=== PATIENT | male | born 1965 | race Caucasian/White ===

== ENCOUNTER → 2023-04-29 | Outpatient (CLI) | payer MEDICAID, SELFPAY ==
--- NOTE | 2023-04-29 13:16 | MRI_ITS ---
STUDY: MRI LEFT SHOULDER REASON FOR EXAM: Male, 57 years old. Pain, look at rotator cuff tendons. TECHNIQUE: Standardized fat and water weighted pulse sequences were obtained in all 3 orthogonal planes. COMPARISON: None. FINDINGS: There is supraspinatus, infraspinatus, and subscapularis tendinosis without a full-thickness tear. Normal teres minor tendon. Normal supraspinatus muscle. Normal infraspinatus muscle. Normal subscapularis muscle. Normal teres minor muscle. There is moderate to severe glenohumeral arthrosis with joint space narrowing, marginal osteophyte formation, high-grade chondromalacia, and subchondral marrow edema in the glenoid. There is overall degeneration of the glenoid labrum. There is a moderate to large glenohumeral joint effusion. Intact humeral head and visualized proximal humerus. Intact biceps labral complex. There is tendinosis and medial subluxation of the long biceps tendon at the proximal bicipital groove. There is mild hypertrophic acromioclavicular arthrosis. There is a Type II morphology (curved), with a neutral orientation. There is trace subacromial-subdeltoid bursal fluid. Normal visualized coracohumeral and coracoacromial ligaments. Normal quadrilateral space. Normal axillary space. Normal deltoid muscle. Normal trapezius muscle. MRI/Upper Ext Joint Only(Routine) IMPRESSION: Supraspinatus, infraspinatus, and subscapularis tendinosis without a full-thickness rotator cuff tear. Mild hypertrophic acromioclavicular arthrosis. Minimal subacromial-subdeltoid bursitis. Moderate to severe glenohumeral arthrosis with overall degeneration of the glenoid labrum. Moderate to large glenohumeral joint effusion. Tendinosis and medial subluxation of the long biceps tendon at the proximal bicipital groove. Electronically Signed: Stanley Loredo MD at 15:30 EDT ,
== END | disposition home or self-care (01) ==
LOC: MRI 13:05
PROVIDERS: PCP Family Medicine; Referring Provider Orthopaedic Surgery Sports Medicine; Visit Provider Orthopaedic Surgery Sports Medicine
DX: M25.512 Pain in left shoulder (principal); M19.012 Primary osteoarthritis, left shoulder
CPT/HCPCS: 73221

== ENCOUNTER → 2023-06-02 | Outpatient (CLI) | payer MEDICAID, SELFPAY ==
--- NOTE | 2023-06-02 13:16 | CT_ITS ---
EXAM: CT LEFT UPPER EXTREMITY WITHOUT INTRAVENOUS CONTRAST CLINICAL INDICATION: surgery planning for total shoulder replacement -- for [facility] planning TECHNIQUE: Helically acquired images were obtained of the left upper extremity without intravenous contrast. 2-D reformats were performed by the technologist. CTDIvol = ( 23.03 ) mGy, DLP = ( 618.59 ) mGycm This CT exam was performed using one or more of the following dose reduction techniques: automated exposure control, adjustment of the mA and/or kV according to patient size, and/or use of iterative reconstruction technique. COMPARISON: April 29, 2023 FINDINGS: BONES/JOINTS: Severe osteoarthritic changes involving the glenohumeral joint with prominent osteophytes projecting inferiorly. [id number] acromioclavicular joint osteoarthrosis. No acute or healing fracture or malalignment. No unusual lytic or sclerotic lesions of bone. SOFT TISSUES: Unremarkable. No soft tissue swelling or gas. No radiopaque foreign body. No soft tissue masses or fluid collections. LUNGS AND PLEURAL SPACES: The visualized left lung is clear. CT/Extremity Upper without Contra IMPRESSION: Severe left glenohumeral joint osteoarthrosis. Electronically Signed: Gagandeep Manley MD at 23:58 EST ,
== END | disposition home or self-care (01) ==
LOC: CT 13:15
PROVIDERS: Referring Provider Orthopaedic Surgery Sports Medicine; Visit Provider Orthopaedic Surgery Sports Medicine
DX: M19.012 Primary osteoarthritis, left shoulder (principal)
CPT/HCPCS: 73200

== ENCOUNTER 2023-07-27 05:14 | Day surgery (SDC) | payer MEDICAID, SELFPAY ==
[2023-07-21 11:33] LABS: Absolute Lymphocyte Count 2.29 X10^3/uL (0.83-4.51); Absolute Neutrophil Count 4.1 X10^3/uL (2.0-7.7); Basophil# 0.06 X10^3/uL; Basophil% 0.8 % (0-1); Eosinophil# 0.21 X10^3/uL; Eosinophils% 2.9 % (0-5); Hematocrit 41.1 % (40-54); Hemoglobin 13.8 g/dL (13.0-16.5); Lymphocyte # 2.29 X10^3/ul (0.83-4.51); Lymphocyte % 31.7 % (19-41); Mean Corp Hgb Conc 33.6 g/dL (32-36); Mean Corpuscular Hgb 29.2 pg (27.0-32.0); Mean Corpuscular Volume 87.1 fL (80-94); Mean Platelet Vol. 9.7 fl (6.2-12.0); Monocyte# 0.53 X10^3/uL; Monocyte% 7.3 % (0-10); NRBC Flagged by Analyzer 0 % (0-5); Neutrophil # 4.11 X10^3/uL (2.7-7.7); Platelet Count 277 K/mm3 (150-450); RBC Distribution Width CV 12.5 % (11.6-14.6); RBC Distribution Width SD 39.8 fl (35.1-43.9); Red Blood Count 4.72 M/mm3 (4.6-6.2); White Blood Count 7.2 K/mm3 (4.4-11.0)
[2023-07-21 11:57] LABS: Anion Gap 3 (5-15); BUN 9 mg/dL (7-18); BUN/Creat Ratio 9.4 RATIO (10-20); Calcium,Total 9.3 mg/dL (8.5-10.1); Chloride 106 mmol/L (98-107); Creatinine, Serum 0.96 mg/dL (0.70-1.30); EST Glomerular Filtration Rate 86 mL/min (>60); Est Glom Filt Rate - Afr Amer 104 mL/min (>60); Glucose 72 mg/dL (74-106); Magnesium 2.2 mg/dL (1.6-2.6); Potassium 3.8 mmol/L (3.5-5.1); Sodium Level 137 mmol/L (136-145)
[2023-07-21 12:26] LABS: Partial Thromboplast Time 31.2 Seconds (24.1-36.2); Prothrombin Time (Protime)PT. 13.4 SECONDS (11.7-14.9)
[2023-07-21 13:51] LABS: Hemoglobin A1c 5.3 % (3.8-5.6)
[2023-07-22 08:11] LABS: Fructosamine 232 umol/L (0-285)
[2023-07-27] VITALS (10 sets, daily range): BP systolic 111–144; BP diastolic 67–94; PULSE 59–68; RESP 14–17; TEMP 36–36.8; O2SAT 97–100; BMI 23.1
--- OUTSIDE RECORDS SUMMARY | 2023-07-27 05:24 | XMS RPT_ITS | CCD ---
Author Name Unknown Address [address] [place] [address] Organization [facility] Care Team Providers Care Resistor Coater Name Role Phone Taty Neal Unavailable [phone] ViauVerónica Unavailable Unavailable Viau, Verónica Bedolla Unavailable Unavailable Viau, Verónica Bedolla Unavailable Unavailable Viadoris, Verónica Bedolla Unavailable Unavailable Taty Neal Primary Care Provider Taty Neal Primary Care Provider Taty Neal MD Primary Care Provider Taty Neal MD Primary Care Provider NINI ESPINOZA Attending Unavailable TATY NEAL Primary Care Unavailable MICHAEL MOFFETT Attending Unavailab MICHAEL Srivastava Admitting Unavailab TATY Estrada Primary Care Unavailable FRANCOIS STEARNS Attending UnavailJEREMIAS Reed Admitting Unavailable TATY NEAL Primary Care Unavailable [facility] Consulting SEYMOUR Barnes Consulting Unavailable VISHAL NAQVI Consulting Unavailable Seymour Luke MD Unavailable TATY NEAL Primary Care Unavailable VERÓNICA TORRES Admitting Unavail able VERÓNICA TORRES Attending Unavail able KEVIN CAPUTO Consulting Unavailable KEVIN CAPUTO Attending Unavailable TATY NEAL Primary Care Unavailable KEVIN CAPUTO Admitting Unavailable TATY NEAL Primary Care Unavailable RAMON SANDERS Admitting Unavailable VERÓNICA TORRES Attending Unavail able KEVIN CAPUTO Consulting Unavailable Taty Neal MD Primary Care Provider [phone] Seymour Luke MD Unavailable [phone] SUREKHA LARIOS Attending Unavailable TATY NEAL Primary Care Unavailable SUREKHA LARIOS Attending Unavailable TATY NEAL Primary Care Unavailable VERÓNICA TONG Attending Unavailable TATY NEAL Primary Care Unavailable KEVIN CAPUTO Attending Unavailable TATY NEAL Primary Care Unavailable TATY NEAL Primary Care Unavailable SUREKHA LARIOS Attending Unavailable SUREKHA LARIOS Admitting Unavailable SUREKHA LARIOS Referring Unavailable TATY NEAL Primary Care Unavailable SANJIV POLLACK Attending Unavail able TATY NEAL Primary Care Unavailable MICHAEL MOFFETT Attending Unavailab le TATY NEAL Primary Care Unavailable SUREKHA LARIOS Attending Unavailable TATY NEAL Primary Care Unavailable Medications Current Medications Medication Drug Class(es) Dates Sig (Normalized) Sig (Original) acetaminophen 325 mg / HYDROcodone bitartrate 5 mg oral tablet (13 sources) Opioid Agonist Start: 12-14-2021 End: 12-21-2021 HYDROcodone-acetam inophen (NORCO) 5-325 mg per tablet Indications: Traumatic amputation of left middle finger Take 1 (one) tablet by mouth every 6 (six) hours as needed for pain (Days supply per fill: 7) . 28 tablet 0 12/14/2021 12/21/2021 Active Completed/Discontinued Medications Medication Drug Class(es) Dates Sig (Normalized) Sig (Original) acetaminophen 325 mg oral tablet (1 source) Start: 03-10-2022 End: 03-19-2022 take 1 tablet by mouth every four hours as needed for pain and headache 650 mg, Oral, Every 4 hours PRN, mild pain, fever 100.4 F or greater, headaches, Starting on Tue03/10/22 at 1353 acetaminophen 325 mg / oxyCODONE hydrochloride 5 mg oral tablet (1 source) Opioid Agonist Start: 03-17-2022 End: 03-18-2022 take 1 tablet by mouth every six hours as needed oxyCODONE-acetami nophen (PERCOCET) 5-325 mg per tablet 1 tablet aluminum hydroxide 40 mg/ml / magnesium hydroxide 40 mg/ml / simethicone 4 mg/ml oral suspension (1 source) Start: 03-10-2022 End: 03-19-2022 take 30 mL by mouth every four hours as needed 30 mL, Oral, Every 4 hours PRN, indigestion, Starting on Tue03/10/22 at 1353 amLODIPine 5 mg oral tablet (1 source) Dihydropyridine Calcium Channel Jassi Start: 01-14-2022 End: 03-19-2022 take 1 tablet by mouth once daily amLODIPine (NORVASC) 5 MG tablet Take 1 (one) tablet (5 mg total) by mouth daily . 0 01/14/2022 03/19/2022 Discontinued (Stop Taking at Discharge) baclofen 10 mg oral tablet (1 source) gamma-Aminobutyric Acid-ergic Agonist Start: 03-10-2022 End: 03-12-2022 baclofen (LIORESAL) tablet 20 mg 24 hr buPROPion hydrochloride 150 mg extended release oral tablet (19 sources) Aminoketone Start: 03-15-2022 End: 03-18-2022 buPROPion (WELLBUTRIN XL) 24 hr tablet 300 mg Problems Active Problems Problem Classification Problem Date Documented Date Episodic/Chronic Alcohol-related disorders (17 sources) Alcohol dependence with withdrawal, unspecified; Translations: [Alcohol withdrawal syndrome] Onset: 2 Chronic Deficiency and other anemia (2 sources) Iron deficiency anemia secondary to blood loss (chronic); Translations: [Iron deficiency anemia secondary to blood loss (chronic)] Onset: 2 Chronic Deficiency and other anemia (6 sources) Iron deficiency anemia due to blood loss; Translations: [Iron deficiency anemia secondary to blood loss (chronic)] Onset: 2 03-25-2022 Chronic Gastrointestinal hemorrhage (6 sources) Peptic ulcer with hemorrhage; Translations: [Chronic or unspecified peptic ulcer, site unspecified, with hemorrhage] Onset: 2 03-20-2022 Chronic Mood disorders (9 sources) Depressive disorder; Translations: [Depression, unspecified depression type] Onset: 2 Chronic Mood disorders (2 sources) Mood disorders; Translations: [Depression, Associated Order(s): LG Jt Injection/Arthrocentesis: R subacromial bursa Post-Procedure Diagnose(s): Impingement syndrome of both shoulders LG Jt Injection/Arthrocentesis: R subacromial bursa Performed by: Surekha Larios CNP Authorized by: Surekha Larios CNP CPT 27975 - Large Joint Arthrocentesis: Consent given by: Patient Time out: Immediately prior to the procedure a time out was called Physician or proceduralist has discussed critical or nonroutine steps, procedure duration and anticipated blood loss: Yes Supporting Documentation: Indications: Pain Procedure Details: Location: Shoulder Site: R subacromial bursa Prep: patient was prepped and draped in usual sterile fashion Needle size: 22 G Approach: Posterior Medications: 1 mL dexamethasone 4 mg/mL, 1 mL triamcinolone acetonide 40 mg/mL Anesthetic used: Bupivacaine 0.5% and Lidocaine 1% Anesthetic amount (mL): 4 Patient tolerance: Patient tolerated the procedure well with no immediate complications 05/04/22 Colton Blairley 1965 Chief Complaint Patient presents with Injections B/L SHOULDER INJ HISTORY of Present Illness: Colton Ronquillo is a 56 y.o. year old male that presents today with Injections (B/L SHOULDER INJ) . Colton Ronquillo has had injections in the past. Last injection to right/left shoulder was over 8 months ago and they tolerated well. They have been treated w/ oral medications & injections. Patient states he did tear down a fence in his yard over a week ago and felt that he strained his left shoulder. He did see his family doctor and he suspected impingement. The following portions of the patient's history were reviewed and updated as appropriate: allergies, current medications, past surgical history and problem list Assessment No documentation. Referred By: No ref. provider found PAST MEDICAL HISTORY The patient's Medications, Allergies, Past Surgical History, Medical History, Family History and Social History were reviewed and can be found in their online medical record, and I have reviewed this information with Colton Ronquillo at the time of their visit. They are significant for Past Medical History: Diagnosis Date Anxiety Arthritis shoulders left wrist spine Depression Hypertension 2018 PHYSICAL EXAM Right Shoulder Exam Tenderness The patient is experiencing tenderness in the acromioclavicular joint and biceps tendon. Muscle Strength Abduction: 3/5 Internal rotation: 3/5 External rotation: 3/5 Biceps: 3/5 Tests Hewitt test: positive Impingement: positive Other Erythema: absent Left Shoulder Exam Tenderness The patient is experiencing tenderness in the acromioclavicular joint and biceps tendon. Muscle Strength Internal rotation: 3/5 External rotation: 3/5 Biceps: 3/5 Tests Hewitt test: positive Impingement: positive Other Erythema: absent Additional Notes: IMAGING Notes: none new today. Reviewed from last visit. IMPRESSION And PLAN: Cortisone injection today. Will follow up in 3 months if effective. Call if no improvement in 10 days. No diagnosis found. Surekha Larios CNP documented in this encounter [facility] 03-19-2022 Hospital Discharge instructions Tita Agustin RN - 03/19/2022 11:30 PM EDT Pt was transported per ambulance to [facility] with all paperwork in place. documented in this encounter [facility] 03-19-2022 History of Present illness Narrative Medical Transportation set up by [facility] per hospital request: Date:03/19/22 Time:2199 Destination:[address] [place] [address] Company: [employer] ([phone]) Special needs/equipment:n/a Truck Type: Ambulance Companies called: [employer] Care Management Progress Note Date: 03/19/2022 Time: 5:27 PM Patient Name: Colton Ronquillo Date of : 1965 Discharge Plan: D/C Disposition: Swing Bed Agency/Destination: [facility] Transition of Care Unit Post-Acute Patient Choice 1: [facility] Discharging Transportation Plan: Transportation Type: Ambulance Discharge Plan Status: VCM noted in RT that pt listed as being pt at [facility]. Provided corrected into to transport scheduling team. Transport not scheduled at this time. 5:47 pm: VCM noted transport time for 10 pm tonight. Notified care team and printed ambulance form to unit. 6:15 pm: VCM received secure chat from [facility] , stating that [facility] generally does not like transports this late in the evening. VCM spoke with [facility] staff, who stated that pt can come at 10 pm or he may lose his bed. VCM updated transport team. Care Management Progress Note Date: 03/19/2022 Time: 10:47 AM Patient Name: Colton Ronquillo Date of : 1965 Discharge Plan:[facility]/Accepted D/C Disposition: Swing Bed Agency/Destination: [facility] Transition of Care Unit Post-Acute Patient Choice 1: [facility] Discharging Transportation Plan: Ambulance Discharge Plan Status: Awaiting discharge order. Accepted to [facility]. 1620 Informed MARISELA Lara that no time established for transport.notified the extenders with care mgmt to print to [employer] computer with d/c ambulance form when time is established NEPHROLOGY PROGRESS [facility] Patient Name: Colton Ronquillo Admit Date: [id number] MR #: [id number] : 1965 ASSESSMENT/PLAN: Acute hypotonic hyponatremia: Unknown baseline. 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 Per patient, has been drinking Twelve 28 ounce water pitchers a day while currently hospitalized, which calculates to over 10 liters/day. -Sodium on admission 136, sodium dropped to 125 during this admission. Recent sodium of 130. -Recently started on Cymbalta on 03/15. -Strict I's and O's. -Trend sodium daily. -Fluid restriction of 1800 ml/day. -Continue to hold IV fluids. -Wellbutrin discontinued today 03/18 as this and a combination of Cymbalta can contribute to hyponatremia exacerbated by polydipsia. -Patients sodium level improved from 125 to 130 with initiation of fluid restriction. Again stressed to the patient the need for appropriate fluid intake. 2. Acute normocytic anemia: Per primary team and GI. Concerning for GI bleed. Hemoglobin on admission 14.6 with current hemoglobin at 7.9. -EGD today with multiple nonbleeding ulcers, biopsy negative for H. Pylori. -GI recommending 3-months of Protonix 40 mg p.o. twice daily Carafate 1 g p.o. 4 times daily. Avoidance of NSAIDs. 3. Chronic alcohol abuse: Per behavioral medicine and primary team. On CIWA protocol. -Plans for patient to be discharged to [facility] withdrawal unit. 4. Anxiety/depression: - Per behavioral medicine and primary team. Concerns for suicidal ideation on admission. -On Cymbalta -Wellbutrin discontinued today. 5. Orthostatic hypotension -Given that patient is reporting drinking greater than 10 L of fluids per day during this hospitalization doubt this is due to volume depletion. Patient also reported dark stool today and guaiac is positive. Patient will need further evaluation of orthostasis per your expertise. Nephrology to sign off. Please do not hesitate to reconsult if needed. Does not need outpatient follow-up with us. Again stressed to the patient the need appropriate fluid intake. He has not needed more than 2 L of fluid a day. He will be seeking treatment for alcohol abuse after discharge. Subjective: Events overnight: none Patient resting quietly in bed. Hospitalist at bedside as well. Review of Systems: ROS otherwise reviewed and negative Physical Examination: Vitals: Vitals: 03/18/22 0440 03/18/22 0713 03/18/22 1104 03/18/22 1123 BP: 120/72 120/74 108/77 BP Location: Right arm Right arm Patient Position: Lying Lying Pulse: 85 93 (!) 100 Resp: (!) 19 (!) 29 18 16 Temp: 97.4 F (36.3 C) 98 F (36.7 C) 98.1 F (36.7 C) TempSrc: Oral Oral Oral SpO2: 93% 94% 98% Weight: Height: Intake/Output last 3 shifts: Intake/Output Summary (Last 24 hours) at 03/18/2022 1440 Last data filed at 03/18/2022 0815 Gross per 24 hour Intake 515 ml Output 1675 ml Net -1160 ml I/O last 3 completed shifts: In: 1025 [P.O.:1020; I.V.:5] Out: 4875 [Urine:4875] General: No acute distress HEENT: Anicteric Neck: Supple CV: Regular rate, no murmurs or rubs. No lower extremity edema Lungs: CTA B Abd: Soft, nontender, bowel sounds present Extr: good LE perfusion, no cyanosis Neuro: No myoclonus, alert and oriented x 3 Skin : No new rashes Dialysis access: : Results/Medications Reviewed 03/18/22 2:40 PM: Laboratory, Microbiology, Pathology, Radiology, Cardiology, Medications and Transcriptions reviewed Scheduled Meds: DULoxetine 30 mg Oral BID folic acid 1 mg Oral Daily lidocaine 1 patch Transdermal Daily melatonin 5 mg Oral Nightly multivitamin 1 tablet Oral Daily pantoprazole 40 mg Intravenous BID polyethylene glycol 17 g Oral Daily senna 1 tablet Oral BID sodium chloride (PF) 5 mL Intravenous Q8H SIERRA topiramate 25 mg Oral Daily topiramate 50 mg Oral Nightly Continuous Infusions: sodium chloride 0.9 % sodium chloride 0.9 % Results from last 7 days Lab Units 03/18/22 0846 03/17/22 0800 03/17/22 0311 03/15/22 0805 03/15/22 0322 WBC K/mcL 6.44 -- 7.27 -- 6.08 HGB g/dL 8.0* 7.8* 7.6* < > 7.9* HCT % 23.0* 22.2* 21.7* < > 22.8* PLT K/mcL 404* -- 234 -- 181 < > = values in this interval not displayed. Results from last 7 days Lab Units 03/18/22 0846 03/18/22 0731 03/17/22 1048 03/17/22 0311 03/16/22 0946 03/15/22 0322 03/13/22 0256 03/12/22 0302 SODIUM mmol/L 130* 130* 125* 125* 133* 132* 132* 133* POTASSIUM mmol/L 3.8 3.7 -- 3.8 3.7 3.7 3.7 4.0 CHLORIDE mmol/L 100 100 -- 96* 104 103 100 103 BICARB mmol/L 22 23 -- 22 20* 23 25 21 BUN mg/dL 11 11 -- 7* 9 9 23 24 CREATININE mg/dL 0.57 0.55 -- 0.56 0.67 0.79 0.76 0.62 EGFR mL/min/1.73 m2 116 117 -- 116 110 105 106 113 GLUCOSE mg/dL 103* 101* -- 120* 110* 102* 86 97 CALCIUM mg/dL -- 8.3* -- 8.2* 8.4 8.3* 8.4 8.4 MAGNESIUM mg/dL -- -- -- 2.1 -- 2.2 2.2 2.3 PHOSPHORUS mg/dL -- -- -- -- -- -- -- 3.8 Urinalysis Spiritual Care Progress Note Completed by: Stefano Hernandez Person(s) Present During this Visit: Patient Time Spent in Direct Patient Care: 15 Narrative: While rounding on the unit, laborer drying department introduced self and role to the patient, Marck, as part of a routine emotional/spiritual care visit. While appreciative of visit, Marck expressed no needs at this time. Merchant Banker provided information regarding pastoral care services, availability, and how to contact. Patient's Response to Pastoral Care: Expressed Gratitude for Visit Planning for Future Visits: PRN, Pt aware to contact Merchant Banker as needed Stefano Hernandez, PhD Staff Merchant Banker Pastoral Care Department [facility] Office: [phone] 24-hour On-call 03/18/22 1415 Visit Background Visit With Patient Visit By Staff Merchant Banker Visit Progression Introduction Visit Requested By Merchant Banker Initiated Visit Source Merchant Banker Initiated Visit Type Inpatient;Rounding Visit Circumstances and Events Routine Visit Visit Length (minutes) 15 Patient's Response to Pastoral Care Expressed Gratitude for Visit Visit Planning PRN;Pt aware to contact Merchant Banker as needed Spiritual Assessment Not assessed during visit Scientologist Assessment Not assessed during this visit Family assessment provided? Unable to asess during this visit [facility]PHROLOGY [facility] Patient Name: Colton Ronquillo Admit Date: [id number] MR #: [id number] : 1965 ASSESSMENT/PLAN: Acute hypotonic hyponatremia: Unknown baseline. 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 Per patient, has been drinking Twelve 28 ounce water pitchers a day while currently hospitalized, which calculates to over 10 liters/day. -Sodium on admission 136, sodium dropped to 125 during this admission. Recent sodium of 130. -Recently started on Cymbalta on 03/15. -Strict I's and O's. -Trend sodium daily. -Fluid restriction of 1800 ml/day. -Continue to hold IV fluids. -Wellbutrin discontinued today 03/18 as this and a combination of Cymbalta can contribute to hyponatremia. -Patients sodium level improved with initiation of fluid restriction. 2. Acute normocytic anemia: Per primary team and GI. Concerning for GI bleed. Hemoglobin on admission 14.6 with current hemoglobin at 7.9. -EGD today with multiple nonbleeding ulcers, biopsy negative for H. Pylori. -GI recommending 3-months of Protonix 40 mg p.o. twice daily Carafate 1 g p.o. 4 times daily. Avoidance of NSAIDs. 3. Chronic alcohol abuse: Per behavioral medicine and primary team. On CIWA protocol. -Plans for patient to be discharged to [facility] withdrawal unit. 4. Anxiety/depression: - Per behavioral medicine and primary team. Concerns for suicidal ideation on admission. -On Cymbalta -Wellbutrin discontinued today. 5. Orthostatic hypotension -Given that patient is reporting drinking greater than 10 L of fluids per day during this hospitalization doubt this is due to volume depletion. Patient also reported dark stool today and guaiac is positive. Patient will need further evaluation of orthostasis per your expertise. Nephrology to sign off. Please do not hesitate to reconsult if needed. Subjective: Events overnight: none Patient resting quietly in bed. Hospitalist at bedside as well. Review of Systems: ROS otherwise reviewed and negative Physical Examination: Vitals: Vitals: 03/18/22 0440 03/18/22 0713 03/18/22 1104 03/18/22 1123 BP: 120/72 120/74 108/77 BP Location: Right arm Right arm Patient Position: Lying Lying Pulse: 85 93 (!) 100 Resp: (!) 19 (!) 29 18 16 Temp: 97.4 F (36.3 C) 98 F (36.7 C) 98.1 F (36.7 C) TempSrc: Oral Oral Oral SpO2: 93% 94% 98% Weight: Height: Intake/Output last 3 shifts: Intake/Output Summary (Last 24 hours) at 03/18/2022 1319 Last data filed at 03/18/2022 0815 Gross per 24 hour Intake 515 ml Output 1675 ml Net -1160 ml I/O last 3 completed shifts: In: 1025 [P.O.:1020; I.V.:5] Out: 4875 [Urine:4875] General: No acute distress HEENT: Anicteric Neck: Supple CV: Regular rate, no murmurs or rubs. No lower extremity edema Lungs: CTA B Abd: Soft, nontender, bowel sounds present Extr: good LE perfusion, no cyanosis Neuro: No myoclonus, alert and oriented x 3 Skin : No new rashes Dialysis access: : Results/Medications Reviewed 03/18/22 1:19 PM: Laboratory, Microbiology, Pathology, Radiology, Cardiology, Medications and Transcriptions reviewed Scheduled Meds: DULoxetine 30 mg Oral BID folic acid 1 mg Oral Daily lidocaine 1 patch Transdermal Daily melatonin 5 mg Oral Nightly multivitamin 1 tablet Oral Daily pantoprazole 40 mg Intravenous BID polyethylene glycol 17 g Oral Daily senna 1 tablet Oral BID sodium chloride (PF) 5 mL Intravenous Q8H SIERRA topiramate 25 mg Oral Daily topiramate 50 mg Oral Nightly Continuous Infusions: sodium chloride 0.9 % sodium chloride 0.9 % Results from last 7 days Lab Units 03/18/22 0846 03/17/22 0800 03/17/22 0311 03/15/22 0805 03/15/22 0322 WBC K/mcL 6.44 -- 7.27 -- 6.08 HGB g/dL 8.0* 7.8* 7.6* < > 7.9* HCT % 23.0* 22.2* 21.7* < > 22.8* PLT K/mcL 404* -- 234 -- 181 < > = values in this interval not displayed. Results from last 7 days Lab Units 03/18/22 0846 03/18/22 0731 03/17/22 1048 03/17/22 0311 03/16/22 0946 03/15/22 0322 03/13/22 0256 03/12/22 0302 SODIUM mmol/L 130* 130* 125* 125* 133* 132* 132* 133* POTASSIUM mmol/L 3.8 3.7 -- 3.8 3.7 3.7 3.7 4.0 CHLORIDE mmol/L 100 100 -- 96* 104 103 100 103 BICARB mmol/L 22 23 -- 22 20* 23 25 21 BUN mg/dL 11 11 -- 7* 9 9 23 24 CREATININE mg/dL 0.57 0.55 -- 0.56 0.67 0.79 0.76 0.62 EGFR mL/min/1.73 m2 116 117 -- 116 110 105 106 113 GLUCOSE mg/dL 103* 101* -- 120* 110* 102* 86 97 CALCIUM mg/dL -- 8.3* -- 8.2* 8.4 8.3* 8.4 8.4 MAGNESIUM mg/dL -- -- -- 2.1 -- 2.2 2.2 2.3 PHOSPHORUS mg/dL -- -- -- -- -- -- -- 3.8 Urinalysis [facility] [facility] PROGRESS NOTE Assessment and Plan Colton Ronquillo is a 56 y.o. male patient of Taty Neal MD with history of depression, hypertension, alcohol abuse presents to the hospital due to concern of suicidal ideation. While in the ER patient denies being actively suicidal but does state that he does not have will to live. Patient also wants help with alcohol detoxification and is being admitted to medical service with psych consulted for medicine consult. Acute blood loss normocytic anemia To rule out acute GI bleed (peptic ulcer disease or esophageal varices bleed secondary to alcohol abuse) Hemoglobin dropped from 14-7.7. Most recent hemoglobin 8.0->7.8->8.0 Noted increasing BUN 3 days ago As per report patient takes meloxicam daily due to chronic arthritis. Also alcohol use 10-12 beers per day No further bowel movements Iron study showed iron deficiency with iron sat of 5% folate levels. Normal Occult blood stool Protonix 40 mg twice daily. Status post EGD on 03/16-Multiple non bleeding antral ulcers identified.Bx negative H pylori. Recommend 3 month protonix 40mg po BID and carafate 1g po QID, Follow up with Dr. Shea in 2-3 months for repeat endoscopic evaluation then. Avoid NSAIDs. 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 Patient on Cymbalta and Wellbutrin Sodium on admission 136 there after dropping to high 130s then 125 Trend sodium every 6 hours and call if sodium less than 122 or more than 132 nephrology Fluid restriction 1800 mL/day Holding IV fluids for now Sodium from 125 up to 130 stable Discussed with nephrology since patient was started on Cymbalta will discontinue Wellbutrin Discussed with the patient fluid restriction and alcohol cessation Orthostatic hypotension Patient blood pressure drop down to the 70s upon the standing LEANA hose for now due to hyponatremia Once hyponatremia improving we will discussed with nephrology IV fluid likely intravascularly depleted due to episode of bleeding Acute alcohol abuse: Alcohol intoxication IV then p.o. multivitamins [facility] protocol Dr. Luke consulted recommended phenobarbital taper, topiramate 50 mg twice daily, baclofen, keep potassium more around 4 and magnesium above 2. Patient to be discharged to [facility] withdrawal unit. Clonidine patch. Discussed in length with patient regarding catalyst, alcohol cessation in possibility of AA if he is interested for long-term support Anxiety/depression ? Concern of suicidal, present on admission, currently resolved. Continue bupropion Patient currently denies any suicidal ideation/thoughts or attempts. Psychiatry consulted, awaiting input.. Initially one-to-one observation then discontinued. Peripheral neuropathy Continue gabapentin Right and left upper quadrant abdominal pain resolved Serum amylase and lipase unremarkable Ultrasound abdomen largely unremarkable Symptomatic treatment. Physical deconditioning PT OT and social service consulted for discharge plan. AM PAC 16-19. Left shoulder pain Shoulder x-ray ordered Family Contact Information Code Status: Full Code Quality Measures DVT Prophylaxis: SCD Abdul Catheter: none Disposition Discharge Location: [facility] Estimated Discharge Date: TBD Outpatient Testing: tb d Subjective Patient overall oriented and alert, he reports left shoulder pain after the RGD with underlying OA He denies abdominal pain. 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 Robin CP , denies Denies fever or chills or nausea or vomiting Abdominal pain subsided Review of Systems All systems reviewed pertinent positives and negatives have been mentioned in the HPI Objective BP 120/74 (BP Location: Right arm, Patient Position: Lying) Pulse 93 Temp 98 F (36.7 C) (Oral) Resp (!) 29 Ht 5' 11 Wt 77.1 kg (169 lb 15.6 oz) SpO2 94% BMI 23.71 kg/m Physical Examination General Appearance: alert; well appearing; in no acute distress HEENT: Head- normocephalic; Eyes- EOMI, sclera anicteric; Ears- hearing intact; Nose- no nasal discharge; Throat- mucous membranes moist Cardiovascular: regular rate and rhythm; normal S1, S2; no murmurs, rubs, clicks or gallops; no peripheral edema Respiratory: lungs clear to auscultation; without wheezes, rales or rhonchi; on room air Abdomen: soft, no tender , non-distended; positive bowel sounds Neurological: oriented x 3; normal speech; no focal findings or movement disorder noted Musculoskeletal: Chronic synovitis and deformities on the hands, limited range of motion in immobilized left wrist Skin: normal coloration; no obvious rashes, lesions or skin breakdown Psych: normal mood and affect Results/Medications Reviewed 03/18/2022 9:10 AM 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 Physical Therapy PHYSICAL THERAPY TREATMENT NOTE Skilled Therapy Needs After Discharge Are Skilled Therapy Services Needed After Discharge: Yes Intensity of Skilled Therapy: 5 to 7 days per week Anticipated Duration of Skilled Therapy: Duration 7 - 10 days DME Recommendation: Wheeled Walker DME Rationale: Patient's condition prevents him/her from accomplishing ADL without recommended equipment, Patient's condition creates an increased risk of safety hazard without recommended equipment Rehab Potential: Good Outcomes Measures Prior Function - Basic Mobility Raw Score: 24 Points Prior Function - Basic Mobility % Impaired: 0% AM-PAC Basic Mobility Raw Score: 16 Points AM-PAC Basic Mobility % Impaired: 47.12% Activity Tolerance Activity Tolerance: Tolerates 20 - 30 min activity with multiple rests Therapy Precautions Orthotic Devices: No Weight Bearing Status: WFL General Rehab Precautions: Fall risk (alcohol withdrawl) Balance Sitting Balance - Static: Stand by assist Sitting Balance - Dynamic: Stand by assist Loss of Balance - Sitting Dynamic: posterior, intermittent Sitting Balance Treatment: weight shifting anterior Skilled Intervention Provided: verbal cues, tactile cues, demonstration, patient education For: LE management, LE positioning, self-monitoring during activity Resulting in: improved activity tolerance, increased upright tolerance for functional tasks Standing Balance - Static: Contact guard assist Emt B - Standing Static: wheeled walker Loss of Balance- Standing Static: intermittent Skilled Intervention Provided: verbal cues, tactile cues, demonstration For: LE management, LE positioning, UE management, UE positioning, self-monitoring during activity, safe use of AD and/or equipment Resulting in: improved activity tolerance Bed Mobility Rolling: Independent, Head of bed elevated Supine to Sit: Modified independent, Head of bed elevated Sit to Supine: Modified independent, Head of bed elevated Emt B: bedrails Skilled Intervention Provided: verbal cues, tactile cues, monitoring patient response with activity For: LE management, LE positioning, safety during functional tasks, safe use of bedrails and/or equipment Resulting in: improved activity tolerance Transfers Sit to Stand: Contact guard assist Bed to Chair: Contact guard assist Stand Pivot Transfers: Contact guard assist Emt B: wheeled walker Skilled Intervention Provided: verbal cues, tactile cues, monitoring patient response with positional changes, monitoring patient response with activity For: LE management, LE positioning, fall prevention, safe use of AD and/or equipment, safety during functional tasks, self-monitoring during activity Resulting in: improved activity tolerance, improved functional independence Gait/Locomotion Gait Assistance: Contact guard assist Assistive Device: wheeled walker Distance: 35 Feet Rest Breaks: Yes Rest Break Position: seated Rest Break Duration: 2-3 mins Additional Gait Trial 2: Yes Gait Assistance Trial 2: Contact guard assist Assistive Device Trial 2: wheeled walker Distance Trial 2: 20 Rest Breaks Trial 2: Yes Rest Break Position Trial 2: seated Rest Break Duration Trial 2: 1-2 mins Pattern: step to, step through, R decreased step length, L decreased step length, over reliance on upper extremities, decreased dixie (steps per minute), narrow base of support (increased dizziness with standing and ambulation. post ambulation DUNGEON MASTER checked BP 104/66.) Weight Bearing Status: able to maintain Gait Loss(es) of Balance: multidirectional, inconsistent Environment/Terrain: open/community environment, multiple distractions Skilled Intervention Provided: verbal cues, demonstration, provided step by step instructions For: attention to task, LE management, UE management, self-monitoring during activity Resulting in: improved activity tolerance Exercise Seated Exercises: marching x20, LAQ x20, AP x20 Standing Exercises: static standing ~ 2 mins Skilled Intervention Provided: verbal cues, tactile cues, monitoring patient response with exercise For: achieving full ROM as tolerated, self-monitoring during activity Resulting in: improved functional strength/ROM, improved performance Additional Treatment Details post ambulation checked BP d/t increased dizziness 104/66. checked BP in standing 68/43, and supine 125/74. notified nursing about possible orthostatic hypotension. Home Living Obtained Home Living and PLOF info from: Patient Lives With: Alone Type of Home: House Home Layout: One level, Laundry in basement, Stairs between floors Rails on inside stairs: 1 rail Number of stairs inside home: (1 flight) Steps to enter home: Yes Rails to enter home: None Number of stairs to enter home: 3 Bathroom Shower/Tub: Tub/shower unit, Main level Bathroom Toilet: Standard, Main level Bathroom Equipment: Hand-held showerhead Bathroom Accessibility: Accessible via walker Mobility Equipment: Cane Additional Objective Details - Home Living: Pt reports he is entering [facility] [place]. 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 This note stands as the current Discharge Summary upon patient discharge from the hospital or completion of Physical Therapy Plan of Care. [facility] [place] PROGRESS NOTE Assessment and Plan Colton Ronquillo is a 56 y.o. male patient of Taty Neal MD with history of depression, hypertension, alcohol abuse presents to the hospital due to concern of suicidal ideation. While in the ER patient denies being actively suicidal but does state that he does not have will to live. Patient also wants help with alcohol detoxification and is being admitted to medical service with psych consulted for medicine consult. Acute blood loss normocytic anemia To rule out acute GI bleed (peptic ulcer disease or esophageal varices bleed secondary to alcohol abuse) Hemoglobin dropped from 14-7.7. Most recent hemoglobin 8.0->7.8 Noted increasing BUN 3 days ago As per report patient takes meloxicam daily due to chronic arthritis. Also alcohol use 10-12 beers per day No further bowel movements Iron study showed iron deficiency with iron sat of 5% folate levels. Normal Occult blood stool Protonix 40 mg twice daily. Status post EGD on 03/16-Multiple non bleeding antral ulcers identified.Bx negative H pylori. Recommend 3 month protonix 40mg po BID and carafate 1g po QID, Follow up with Dr. Shea in 2-3 months for repeat endoscopic evaluation then. Avoid NSAIDs. 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 multivitamins [facility] protocol Dr. Luke consulted recommended phenobarbital taper, topiramate 50 mg twice daily, baclofen, keep potassium more around 4 and magnesium above 2. Patient to be discharged to [facility] withdrawal unit. Clonidine patch. Discussed in length with patient regarding [facility], alcohol cessation in possibility of AA if he is interested for long-term support Anxiety/depression ? Concern of suicidal, present on admission, currently resolved. Continue bupropion Patient currently denies any suicidal ideation/thoughts or attempts. Psychiatry consulted, awaiting input.. Initially one-to-one observation then discontinued. Peripheral neuropathy Continue gabapentin Right and left upper quadrant abdominal pain resolved Serum amylase and lipase unremarkable Ultrasound abdomen largely unremarkable Symptomatic treatment. Physical deconditioning PT OT and social service consulted for discharge plan. AM PAC 16-19. Family Contact Information Code Status: Full Code Quality Measures DVT Prophylaxis: SCD Abdul Catheter: none Disposition Discharge Location: [facility] Estimated Discharge Date: TBD Outpatient Testing: tb d Subjective Patient overall oriented and alert, he reports left wrist pain due to chronic osteoarthritis that has been ongoing for a while. He denies abdominal pain. He did have an episode of bowel movement dark, black Denies fever or chills or nausea or vomiting Abdominal pain subsided Review of Systems All systems reviewed pertinent positives and negatives have been mentioned in the HPI Objective BP 125/80 Pulse 93 Temp 98.7 F (37.1 C) Resp 12 Ht 5' 11 Wt 77.1 kg (169 lb 15.6 oz) SpO2 96% BMI 23.71 kg/m Physical Examination General Appearance: alert; well appearing; in no acute distress HEENT: Head- normocephalic; Eyes- EOMI, sclera anicteric; Ears- hearing intact; Nose- no nasal discharge; Throat- mucous membranes moist Cardiovascular: regular rate and rhythm; normal S1, S2; no murmurs, rubs, clicks or gallops; no peripheral edema Respiratory: lungs clear to auscultation; without wheezes, rales or rhonchi; on room air Abdomen: soft, no tender , non-distended; positive bowel sounds Neurological: oriented x 3; normal speech; no focal findings or movement disorder noted Musculoskeletal: Chronic synovitis and deformities on the hands, limited range of motion in immobilized left wrist Skin: normal coloration; no obvious rashes, lesions or skin breakdown Psych: normal mood and affect Results/Medications Reviewed 03/17/2022 10:27 AM 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 Nutrition Care Initial Assessment Reason for visit: Dietitian Screen - LOS Nutrition Diagnosis: No current nutrition dx. Nutrition Intervention/Prescription: Continue PO diet Diet: Regular Oral nutrition supplement: n/a Tube Feeding: n/a Nutrition Goals: PO intake > 75% most meals Start Date:03/17/2022 Expected End Date:03/23/2022 Nutrition Education: No needs at this time Assessment: Pertinent clinical information: pt presented with suicidal ideation and request for assistance with alcohol withdrawal, drop in hemoglobin noted with black-colored stool, concern for acute GI bleed per chart review. Pt is now s/p EGD with biopsy on 03/16. Past Medical History: Diagnosis Date Anxiety Depression Hypertension 2017 Height: 5' 11 Current weight: 77.1 kg (169 lb 15.6 oz) BMI Body mass index is 23.71 kg/m . Weight hx: fluctuation noted over the last few months.Anticipate weights without change below were stated weights. Wt Readings from Last 10 Encounters: 03/13/22 77.1 kg (169 lb 15.6 oz) 12/16/21 73 kg (160 lb 15 oz) 12/14/21 81.6 kg (180 lb) 12/20/18 81.6 kg (180 lb) 11/24/18 81.6 kg (180 lb) 08/23/17 81.6 kg (180 lb) 08/15/17 81.6 kg (180 lb) 07/20/17 82.1 kg (180 lb 14.4 oz) Current diet order: Regular Current EN order: n/a Current supplements: n/a Recent intake: no intake recorded at present. Per RDN review of [facility], pt has been ordering meals regularly with assistance. Current intake Likely meets estimated needs. Patient/family comments: RDN met with pt in room on this date. Pt reports appetite is improving, did not have nutrition questions or concerns during visit on this date. RDN to remain available. Difficulty Chewing/Swallowing: No Skin Integrity: Intact GI Function: LBM 9/8, constipation noted Edema: non-pitting edema to LUE per RN flowsheet documentation Physical Appearance: no overt physical s/s of malnutrition noted today. Pt is thin. Labs: Recent Labs 03/17/22 0311 NA 125* K 3.8 BICARB 22 CL 96* GLUCOSE 120* BUN 7* CREATININE 0.56 MG 2.1 Scheduled Meds: buPROPion 300 mg Oral Q24H SIRERA DULoxetine 30 mg Oral BID folic acid 1 mg Oral Daily lidocaine 1 patch Transdermal Daily melatonin 5 mg Oral Nightly multivitamin 1 tablet Oral Daily pantoprazole 40 mg Intravenous BID polyethylene glycol 17 g Oral Daily senna 1 tablet Oral BID sodium chloride (PF) 5 mL Intravenous Q8H SIERRA topiramate 25 mg Oral Daily topiramate 50 mg Oral Nightly Continuous Infusions: sodium chloride 0.9 % sodium chloride 0.9 % Estimated Energy Needs Total Energy Estimated Needs: 6738-9674 kcal/d Method for Estimating Needs: 25-30 kcal/kg current wt Total Protein Estimated Needs: 80 g/d Method for Estimating Needs: 1 g/kg current wt Genesis Terrazas RDN, LD, [facility] Pt c/o left wrist pain, stated that it hurts really bad . Pt experiencing limited movement and swelling to left hand. Nurse suggested an ice pack to hand, pt refusing. DARION Jones notified, see MAR for new orders. Care Management Progress Note Date: 03/16/2022 Time: 11:49 AM Patient Name: Colton Ronquillo Date of : 1965 Discharge Plan: Post-Acute Patient Choice 1: [facility] Discharging Transportation Plan: Undetermined Discharge Plan Status: Patient reviewed with Dr. Christianson. EGD procedure to be completed. Current referral out with [facility]. Patient to address therapy needs first and then plan to discharge to [facility] W/D unit. [facility] [place] PROGRESS NOTE Assessment and Plan Colton Ronquillo is a 56 y.o. male patient of Taty Neal MD with history of depression, hypertension, alcohol abuse presents to the hospital due to concern of suicidal ideation. While in the ER patient denies being actively suicidal but does state that he does not have will to live. Patient also wants help with alcohol detoxification and is being admitted to medical service with psych consulted for medicine consult. Acute normocytic anemia To rule out acute GI bleed (peptic ulcer disease or esophageal varices bleed secondary to alcohol abuse) Hemoglobin dropped from 14-7.7. Most recent hemoglobin 8.0 Noted increasing BUN 3 days ago As per report patient takes meloxicam daily due to chronic arthritis. Also alcohol use 10-12 beers per day No further bowel movements Iron study showed iron deficiency with iron sat of 5% folate levels. Normal Occult blood stool Protonix 40 mg twice daily. Consult GI plan for EGD today Acute alcohol abuse: Alcohol intoxication IV then p.o. multivitamins [facility] protocol Dr. Luke consulted recommended phenobarbital taper, topiramate 50 mg twice daily, baclofen, keep potassium more around 4 and magnesium above 2. Patient to be discharged to [facility] withdrawal unit. Clonidine patch. Anxiety/depression ? Concern of suicidal, present on admission, currently resolved. Continue bupropion Patient currently denies any suicidal ideation/thoughts or attempts. Psychiatry consulted, awaiting input.. Initially one-to-one observation then discontinued. Peripheral neuropathy Continue gabapentin Right and left upper quadrant abdominal pain resolved Serum amylase and lipase unremarkable Ultrasound abdomen largely unremarkable Symptomatic treatment. Hyponatremia resolved Most likely hypovolemic IV fluid hydration Back to normal Physical deconditioning PT OT and social service consulted for discharge plan. AM PAC 16-19. Family Contact Information Code Status: Full Code Quality Measures DVT Prophylaxis: SCD Abdul Catheter: none Disposition Discharge Location: [facility] Estimated Discharge Date: TBD Outpatient Testing: tb d Subjective Patient overall oriented and alert, he reports chronic pain from arthritic changes on his hand and left wrist Denies noticing any blood or black stool, currently constipation Denies fever or chills or nausea or vomiting Abdominal pain subsided Review of Systems All systems reviewed pertinent positives and negatives have been mentioned in the HPI Objective BP 107/68 (BP Location: Left arm, Patient Position: Lying) Pulse 87 Temp 98.2 F (36.8 C) (Oral) Resp (!) 19 Ht 5' 11 Wt 77.1 kg (169 lb 15.6 oz) SpO2 97% BMI 23.71 kg/m Physical Examination General Appearance: alert; well appearing; in no acute distress HEENT: Head- normocephalic; Eyes- EOMI, sclera anicteric; Ears- hearing intact; Nose- no nasal discharge; Throat- mucous membranes moist Cardiovascular: regular rate and rhythm; normal S1, S2; no murmurs, rubs, clicks or gallops; no peripheral edema Respiratory: lungs clear to auscultation; without wheezes, rales or rhonchi; on room air Abdomen: soft, no tender , non-distended; positive bowel sounds Neurological: oriented x 3; normal speech; no focal findings or movement disorder noted Musculoskeletal: Chronic synovitis and deformities on the hands, limited range of motion in immobilized left wrist Skin: normal coloration; no obvious rashes, lesions or skin breakdown Psych: normal mood and affect Results/Medications Reviewed 03/16/2022 10:09 AM 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 Occupational Therapy OCCUPATIONAL THERAPY TREATMENT NOTE Skilled Therapy Needs After Discharge Are Skilled Therapy Services Needed After Discharge: Yes Intensity of Skilled Therapy: 2-3 days per week Anticipated Duration of Skilled Therapy: Duration 7 - 10 days DME Recommendation: Tub seat DME Rationale: Patient's condition prevents him/her from accomplishing ADL without recommended equipment, Patient's condition creates an increased risk of safety hazard without recommended equipment Rehab Potential: Good Outcomes Measures Prior Function Daily Activity Raw Score: 24 Prior Function Daily Activity % Impaired: 0% AM-PAC Daily Activity Raw Score: 21 AM-PAC Daily Activity % Impaired: 32.79% Activity Tolerance Activity Tolerance: Tolerates 20 - 30 min activity with multiple rests Therapy Precautions Orthotic Devices: Yes Upper Extremity: Left (Wrist Brace (pt wears at his own discretion d/t old injury)) Weight Bearing Status: WFL General Rehab Precautions: Fall risk Cognition Overall Cognitive Status: Within Functional Limits Arousal/Alertness: Appropriate responses to stimuli Orientation Level: Oriented X4 Social Interaction: WFL Resulting In: (Conversed. Followed direction well. Mild apprehension in standing and with mobility in room.) ADL Grooming: Modified independent (Washed face and brushed teeth independently while standing at sink, SBA. Stood 2 minutes at a time, but would then need to sit d/t bilateral knee pain or mild dizziness. (3 trials)) Grooming - Skilled Intervention Provided: environmental setup/modification, monitored patient's safety and tolerance Grooming - For: fall prevention Grooming - Resulting In: improved overall self care, improved participation in ADL task Toileting: Supervision (and GB. Managed pants with CGA. Managed toilet hygiene independently.) Toileting - Skilled Intervention Provided: environmental setup/modification, monitored patient's safety and tolerance Toileting - For: fall prevention Toileting - Resulting In: improved safety, improved overall self care, improved participation in ADL task, increased upright tolerance for functional tasks Functional Mobility: Contact guard assist (Walked with CGA and holding onto wall or walker for support from bed to sink to toilet to sink and chair.) Functional Mobility - Skilled Intervention Provided: monitoring patient response with activity, monitoring patient response with positional changes, environmental setup/modification Functional Mobility - For: fall prevention, increased participation in mobility task Functional Mobility - Resulting In: increased upright tolerance for functional task(s), improved safety IADL Bed Mobility Supine to Sit: Modified independent Sit to Supine: Modified independent Functional Transfers Sit to Stand: Contact guard assist Bed to Chair Transfers: Contact guard assist Toilet Transfers: Stand by assist (with GB for support) Exercise Seated Exercises: Bilateral elbow flex/ext 2 sets of 10, shoulder flexion to 80 degrees 10 reps, hand clasps 10 reps. Having left wrist pain with LUE motion, even with wrist support on entire time. Standing Exercises: Stood momentarily for BUE exercises, but then had to sit reporting mild dizziness, so did ther ex in sitting. Balance Treatment Sitting Balance - Static: Independent Standing Balance - Static: Contact guard assist Emt B - Standing Static: (ww, sink, GB) Interventions Additional Treatment Details Home Living Obtained Home Living and PLOF info from: Patient Lives With: Alone Type of Home: House Home Layout: One level, Laundry in basement, Stairs between floors Rails on inside stairs: 1 rail Number of stairs inside home: (1 flight) Steps to enter home: Yes Rails to enter home: None Number of stairs to enter home: 3 Bathroom Shower/Tub: Tub/shower unit, Main level Bathroom Toilet: Standard, Main level Bathroom Equipment: Hand-held showerhead Bathroom Accessibility: Accessible via walker Mobility Equipment: Cane Additional Objective Details - Home Living: Pt reports he is entering [facility] [place]. 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 This note stands as the current Discharge Summary upon patient discharge from the hospital or completion of Occupational Therapy Plan of Care. Care Management Progress Note Date: 03/15/2022 Time: 1:54 PM Patient Name: Colton Ronquillo Date of : 1965 Discharge Plan: Post-Acute Patient Choice 1: [facility] Discharging Transportation Plan: Discharge Plan Status: Patient may be ready for discharge tomorrow. PT is still recommending treatment 5-7 times a week. I spoke with [facility] withdrawal unit. Patient would need to be able to independently care for himself there. Referral sent to TCU. Patient made aware. Communicated with Jodee MUÑOZ, who reports patient/family request referral(s) to [facility]. Referral(s) sent, awaiting follow-up. [facility] [place] PROGRESS NOTE Assessment and Plan Colton Ronquillo is a 56 y.o. male patient of Taty Neal MD with history of depression, hypertension, alcohol abuse presents to the hospital due to concern of suicidal ideation. While in the ER patient denies being actively suicidal but does state that he does not have will to live. Patient also wants help with alcohol detoxification and is being admitted to medical service with psych consulted for medicine consult. Acute alcohol abuse: Alcohol intoxication IV then p.o. multivitamins [facility] protocol Dr. Luke consulted recommended phenobarbital taper, topiramate 50 mg twice daily, baclofen, keep potassium more around 4 and magnesium above 2. Patient to be discharged to [facility] withdrawal unit. Clonidine patch. Anxiety/depression ? Concern of suicidal, present on admission, currently resolved. Continue bupropion Patient currently denies any suicidal ideation/thoughts or attempts. Psychiatry consulted, awaiting input.. Initially one-to-one observation then discontinued. Peripheral neuropathy Continue gabapentin Right and left upper quadrant abdominal pain Serum amylase and lipase unremarkable Ultrasound abdomen largely unremarkable Symptomatic treatment. Hyponatremia Most likely hypovolemic IV fluid hydration Back to normal Acute normocytic anemia To rule out acute GI bleed (peptic ulcer disease or esophageal varices bleed secondary to alcohol abuse) Hemoglobin dropped from 14-7.7 Iron study showed iron deficiency with iron sat of 5% folate levels. Normal Occult blood stool Protonix 40 mg twice daily. Consult GI Physical deconditioning PT OT and social service consulted for discharge plan. AM PAC 16-19. Family Contact Information Code Status: Full Code Quality Measures DVT Prophylaxis: SCD Abdul Catheter: none Disposition Discharge Location: [facility] Estimated Discharge Date: TBD Outpatient Testing: tb d Subjective Feels better of mild dizziness and lightheadedness Denies noticing any blood or black stool Denies fever or chills or nausea or vomiting Abdominal pain subsided Review of Systems All systems reviewed pertinent positives and negatives have been mentioned in the HPI Objective BP 100/62 (BP Location: Left arm, Patient Position: Lying) Pulse (!) 105 Temp 97.5 F (36.4 C) (Temporal) Resp 16 Ht 5' 11 Wt 77.1 kg (169 lb 15.6 oz) SpO2 97% BMI 23.71 kg/m Physical Examination General Appearance: alert; well appearing; in no acute distress HEENT: Head- normocephalic; Eyes- EOMI, sclera anicteric; Ears- hearing intact; Nose- no nasal discharge; Throat- mucous membranes moist Cardiovascular: regular rate and rhythm; normal S1, S2; no murmurs, rubs, clicks or gallops; no peripheral edema Respiratory: lungs clear to auscultation; without wheezes, rales or rhonchi; on room air Abdomen: soft, no tender , non-distended; positive bowel sounds Neurological: oriented x 3; normal speech; no focal findings or movement disorder noted Musculoskeletal: no significant deformity or tenderness to palpation Skin: normal coloration; no obvious rashes, lesions or skin breakdown Psych: normal mood and affect Results/Medications Reviewed 03/15/2022 12:48 PM 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 Physical Therapy PHYSICAL THERAPY TREATMENT NOTE Skilled Therapy Needs After Discharge Are Skilled Therapy Services Needed After Discharge: Yes Intensity of Skilled Therapy: 5 to 7 days per week Anticipated Duration of Skilled Therapy: Duration 7 - 10 days DME Recommendation: Wheeled Walker, Tub seat DME Rationale: Patient's condition prevents him/her from accomplishing ADL without recommended equipment, Patient's condition creates an increased risk of safety hazard without recommended equipment Rehab Potential: Good Outcomes Measures Prior Function - Basic Mobility Raw Score: 24 Points Prior Function - Basic Mobility % Impaired: 0% AM-PAC Basic Mobility Raw Score: 16 Points AM-PAC Basic Mobility % Impaired: 47.12% Activity Tolerance Activity Tolerance: Tolerates 20 - 30 min activity with multiple rests Therapy Precautions Orthotic Devices: No Weight Bearing Status: WFL General Rehab Precautions: Fall risk (alcohol withdrawl) Balance Sitting Balance - Static: Stand by assist Sitting Balance - Dynamic: Stand by assist Skilled Intervention Provided: verbal cues, demonstration, patient education For: LE management, LE positioning, fall prevention, self-monitoring during activity Resulting in: improved activity tolerance, improved safety, improved trunk stability Standing Balance - Static: Contact guard assist Emt B - Standing Static: wheeled walker Loss of Balance- Standing Static: intermittent (whole body tremors with STS and ambulation) Standing Balance - Dynamic: Contact guard assist Emt B - Standing Dynamic: wheeled walker Loss of Balance- Standing Dynamic: intermittent (whole body tremors with STS and ambulation) Skilled Intervention Provided: verbal cues, demonstration, patient education For: LE management, LE positioning, safe use of AD and/or equipment, self-monitoring during activity Resulting in: improved activity tolerance, improved functional independence Bed Mobility Rolling: Independent, Head of bed flat Supine to Sit: Modified independent, Head of bed flat Sit to Supine: Modified independent, Head of bed flat Emt B: bedrails Skilled Intervention Provided: verbal cues, monitoring patient response with activity For: LE management, LE positioning, fall prevention, safe use of bedrails and/or equipment, safety during functional tasks Resulting in: improved activity tolerance Transfers Sit to Stand: (verbal cues for proper hand placement) Bed to Chair: Contact guard assist Emt B: wheeled walker Skilled Intervention Provided: verbal cues, tactile cues, monitoring patient response with activity For: LE management, LE positioning, safe use of AD and/or equipment Resulting in: improved activity tolerance, increased upright tolerance for functional tasks Gait/Locomotion Gait Assistance: Contact guard assist (with chair follow. pt unsteady with ambulation; LE weakness and fatigues easily) Assistive Device: wheeled walker Distance: 10 Feet Rest Breaks: Yes Rest Break Position: seated Rest Break Duration: 1-2 mins Additional Gait Trial 2: Yes Gait Assistance Trial 2: Contact guard assist Assistive Device Trial 2: wheeled walker Distance Trial 2: 5 Rest Breaks Trial 2: Yes Rest Break Position Trial 2: seated Rest Break Duration Trial 2: 1-2 mins Pattern: step to, step through, narrow base of support, over reliance on upper extremities, decreased dixie (steps per minute), R decreased step length, L decreased step length (whole body tremoring) Weight Bearing Status: able to maintain Gait Loss(es) of Balance: intermittent, multidirectional Environment/Terrain: open/community environment, multiple distractions, closed environment, minimal to no distractions Skilled Intervention Provided: verbal cues, tactile cues, provided step by step instructions, patient education For: attention to task, fall prevention, gait sequence, self-monitoring during activity Resulting in: improved activity tolerance, increased upright tolerance for functional tasks Exercise Ankle Pumps: x15 Hip Abduction: x15 Long Arc Quad: x15 Seated Exercises: marching x15, heel to toes x15 Standing Exercises: calf raises x15 Skilled Intervention Provided: verbal cues, visual cues, demonstration, monitoring patient response with exercise For: achieving full ROM as tolerated, muscle activation, number of repetitions, self-monitoring during activity Resulting in: efficient movement, improved functional strength/ROM Additional Treatment Details pt tolerated therapy well at today's session. pt has increased tremors with STS transfers and ambulation. pt fatigues easily and required chair follow with gait training. Home Living Obtained Home Living and PLOF info from: Patient Lives With: Alone Type of Home: House Home Layout: One level, Laundry in basement, Stairs between floors Rails on inside stairs: 1 rail Number of stairs inside home: (1 flight) Steps to enter home: Yes Rails to enter home: None Number of stairs to enter home: 3 Bathroom Shower/Tub: Tub/shower unit, Main level Bathroom Toilet: Standard, Main level Bathroom Equipment: Hand-held showerhead Bathroom Accessibility: Accessible via walker Mobility Equipment: Cane Additional Objective Details - Home Living: Pt reports he is entering [facility] [place]. 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 This note stands as the current Discharge Summary upon patient discharge from the hospital or completion of Physical Therapy Plan of Care. [facility] [place] PROGRESS NOTE Assessment and Plan Colton Ronquillo is a 56 y.o. male patient of Taty Neal MD with history of depression, hypertension, alcohol abuse presents to the hospital due to concern of suicidal ideation. While in the ER patient denies being actively suicidal but does state that he does not have will to live. Patient also wants help with alcohol detoxification and is being admitted to medical service with psych consulted for medicine consult. Acute alcohol abuse: Alcohol intoxication IV then p.o. multivitamins [facility] protocol Dr. Luke consulted recommended phenobarbital taper, topiramate 50 mg twice daily, baclofen, keep potassium more around 4 and magnesium above 2. Patient to be discharged to [facility] withdrawal unit. Clonidine patch. Anxiety/depression ? Concern of suicidal, present on admission, currently resolved. Continue bupropion Patient currently denies any suicidal ideation/thoughts or attempts. Psychiatry consulted, awaiting input.. Initially one-to-one observation then discontinued. Peripheral neuropathy Continue gabapentin Right and left upper quadrant abdominal pain Serum amylase and lipase unremarkable Ultrasound abdomen largely unremarkable Symptomatic treatment. Hyponatremia Most likely hypovolemic IV fluid hydration Acute normocytic anemia To rule out acute GI bleed (peptic ulcer disease or esophageal varices bleed secondary to alcohol abuse) Hemoglobin dropped from 14-9.1 Likely secondary to IV fluid hydration Iron study B12 folate levels. Occult blood stool Protonix 40 mg twice daily. Closely monitor hemoglobin Transfuse accordingly Physical deconditioning PT OT and social service consulted for discharge plan. AM PAC 16-19. Family Contact Information Code Status: Full Code Quality Measures DVT Prophylaxis: SCD Abdul Catheter: none Disposition Discharge Location: [facility] Estimated Discharge Date: TBD Outpatient Testing: tb d Subjective Patient feeling better. Abdominal pain resolved Denies any nausea vomiting. Denies any suicidal ideation Discussed with bedside nursing Review of Systems All systems reviewed pertinent positives and negatives have been mentioned in the HPI Objective BP (!) 104/58 (BP Location: Left arm) Pulse 87 Temp 98 F (36.7 C) (Oral) Resp (!) 23 Ht 5' 11 Wt 77.1 kg (169 lb 15.6 oz) SpO2 98% BMI 23.71 kg/m Physical Examination General Appearance: alert; well appearing; in no acute distress HEENT: Head- normocephalic; Eyes- EOMI, sclera anicteric; Ears- hearing intact; Nose- no nasal discharge; Throat- mucous membranes moist Cardiovascular: regular rate and rhythm; normal S1, S2; no murmurs, rubs, clicks or gallops; no peripheral edema Respiratory: lungs clear to auscultation; without wheezes, rales or rhonchi; on room air Abdomen: soft, no tender , non-distended; positive bowel sounds Neurological: oriented x 3; normal speech; no focal findings or movement disorder noted Musculoskeletal: no significant deformity or tenderness to palpation Skin: normal coloration; no obvious rashes, lesions or skin breakdown Psych: normal mood and affect Results/Medications Reviewed 03/14/2022 1:07 PM 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 [facility] [place] PROGRESS NOTE Assessment and Plan Colton Ronquillo is a 56 y.o. male patient of Taty Neal MD with history of depression, hypertension, alcohol abuse presents to the hospital due to concern of suicidal ideation. While in the ER patient denies being actively suicidal but does state that he does not have will to live. Patient also wants help with alcohol detoxification and is being admitted to medical service with psych consulted for medicine consult. Acute alcohol abuse: Alcohol intoxication IV then p.o. multivitamins [facility] protocol Dr. Luke consulted recommended phenobarbital taper, topiramate 50 mg twice daily, baclofen, keep potassium more around 4 and magnesium above 2. Patient to be discharged to [facility] withdrawal unit. Anxiety/depression ? Concern of suicidal Continue bupropion Patient denies any suicidal ideation/thoughts or attempts. Psychiatry consulted, awaiting input.. Peripheral neuropathy Continue gabapentin Right and left upper quadrant abdominal pain Serum amylase and lipase unremarkable Ultrasound abdomen largely unremarkable Symptomatic treatment. Hyponatremia Most likely hypovolemic IV fluid hydration Normocytic anemia B12 folate levels. Closely monitor Family Contact Information Code Status: Full Code Quality Measures DVT Prophylaxis: - enoxaparin (LOVENOX) syringe 40 mg Abdul Catheter: none Disposition Discharge Location: [facility] Estimated Discharge Date: TBD Outpatient Testing: tb d Subjective Patient feeling better. Abdominal pain improving Denies any suicidal ideation discussed with bedside nursing Review of Systems All systems reviewed pertinent positives and negatives have been mentioned in the HPI Objective BP 111/76 Pulse 97 Temp 97.9 F (36.6 C) (Oral) Resp 16 Wt 77.1 kg (170 lb) SpO2 97% BMI 23.71 kg/m Physical Examination General Appearance: alert; well appearing; in no acute distress HEENT: Head- normocephalic; Eyes- EOMI, sclera anicteric; Ears- hearing intact; Nose- no nasal discharge; Throat- mucous membranes moist Cardiovascular: regular rate and rhythm; normal S1, S2; no murmurs, rubs, clicks or gallops; no peripheral edema Respiratory: lungs clear to auscultation; without wheezes, rales or rhonchi; on room air Abdomen: soft, no tender , non-distended; positive bowel sounds Neurological: oriented x 3; normal speech; no focal findings or movement disorder noted Musculoskeletal: no significant deformity or tenderness to palpation Skin: normal coloration; no obvious rashes, lesions or skin breakdown Psych: normal mood and affect Results/Medications Reviewed 03/13/2022 12:12 PM 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 [facility] [place] PROGRESS NOTE Assessment and Plan Colton Ronquillo is a 56 y.o. male patient of Taty Neal MD with history of depression, hypertension, alcohol abuse presents to the hospital due to concern of suicidal ideation. While in the ER patient denies being actively suicidal but does state that he does not have will to live. Patient also wants help with alcohol detoxification and is being admitted to medical service with psych consulted for medicine consult. Acute alcohol abuse: Alcohol intoxication IV then p.o. multivitamins [facility] protocol Dr. Luke consulted recommended phenobarbital taper, topiramate 50 mg twice daily, baclofen, keep potassium more around 4 and magnesium above 2. Consider discharge patient to [facility] unit. Anxiety/depression ? Concern of suicidal Continue bupropion Patient denies any suicidal ideation/thoughts or attempts. Psychiatry consulted, awaiting input.. Peripheral neuropathy Continue gabapentin Right and left upper quadrant abdominal pain Serum amylase and lipase unremarkable Ultrasound abdomen pending. Hyponatremia Most likely hypovolemic IV fluid hydration Normocytic anemia B12 folate levels. Closely monitor Family Contact Information Code Status: Full Code Quality Measures DVT Prophylaxis: - enoxaparin (LOVENOX) syringe 40 mg Abdul Catheter: none Disposition Discharge Location: [facility] Estimated Discharge Date: TBD Outpatient Testing: tb d Subjective Patient feeling much better. Still have abdominal pain Denies any suicidal ideation discussed with bedside nursing Review of Systems All systems reviewed pertinent positives and negatives have been mentioned in the HPI Objective BP (!) 156/91 (BP Location: Left arm, Patient Position: Lying) Pulse (!) 108 Temp 98 F (36.7 C) (Oral) Resp 16 Wt 77.1 kg (170 lb) SpO2 97% BMI 23.71 kg/m Physical Examination General Appearance: alert; well appearing; in no acute distress HEENT: Head- normocephalic; Eyes- EOMI, sclera anicteric; Ears- hearing intact; Nose- no nasal discharge; Throat- mucous membranes moist Cardiovascular: regular rate and rhythm; normal S1, S2; no murmurs, rubs, clicks or gallops; no peripheral edema Respiratory: lungs clear to auscultation; without wheezes, rales or rhonchi; on room air Abdomen: soft, mild-tender right and left upper quadrant, non-distended; positive bowel sounds Neurological: oriented x 3; normal speech; no focal findings or movement disorder noted Musculoskeletal: no significant deformity or tenderness to palpation Skin: normal coloration; no obvious rashes, lesions or skin breakdown Psych: normal mood and affect Results/Medications Reviewed 03/12/2022 2:12 PM 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 Care Management Progress Note Date: 03/12/2022 Time: 9:27 AM Patient Name: Colton Ronquillo Date of : 1965 Discharge Plan: Discharging Transportation Plan: Discharge Plan Status: Patient in bed, eating breakfast. He has a headache and stomach ache. He does plan to discharge to [facility]. Encouragement given. [facility] [place] PROGRESS NOTE Assessment and Plan Colton Ronquillo is a 56 y.o. male patient of Taty Neal MD with history of depression, hypertension, alcohol abuse presents to the hospital due to concern of suicidal ideation. While in the ER patient denies being actively suicidal but does state that he does not have will to live. Patient also wants help with alcohol detoxification and is being admitted to medical service with psych consulted for medicine consult. Acute alcohol abuse: Patient looked intoxicated when seen, per patient his last drink was last night. Alcohol level in the ER 62 Monitor closely for acute withdrawal [facility] protocol ordered continue phenobarbital tapering dose. Dr. Luke consulted Depression Continue bupropion Patient denies any suicidal ideation Appreciate psychiatry input Peripheral neuropathy Continue gabapentin Family Contact Information Code Status: Full Code Quality Measures DVT Prophylaxis: - enoxaparin (LOVENOX) syringe 40 mg Abdul Catheter: none Disposition Discharge Location: [facility] Estimated Discharge Date: TBD Outpatient Testing: tb d Subjective Patient states he feels sad Denies any suicidal ideation discussed with bedside nursing Review of Systems All systems reviewed pertinent positives and negatives have been mentioned in the HPI Objective BP (!) 144/104 (BP Location: Left arm, Patient Position: Lying) Pulse (!) 110 Temp 98.5 F (36.9 C) (Oral) Resp 15 SpO2 98% Physical Examination General Appearance: alert; well appearing; in no acute distress HEENT: Head- normocephalic; Eyes- EOMI, sclera anicteric; Ears- hearing intact; Nose- no nasal discharge; Throat- mucous membranes moist Cardiovascular: regular rate and rhythm; normal S1, S2; no murmurs, rubs, clicks or gallops; no peripheral edema Respiratory: lungs clear to auscultation; without wheezes, rales or rhonchi; on room air Abdomen: soft, non-tender, non-distended; positive bowel sounds Neurological: oriented x 3; normal speech; no focal findings or movement disorder noted Musculoskeletal: no significant deformity or tenderness to palpation Skin: normal coloration; no obvious rashes, lesions or skin breakdown Psych: normal mood and affect Results/Medications Reviewed 03/11/2022 4:33 PM Laboratory documented in this encounter [facility] 03-19-2022 Hospital course Narrative [facility] [place] [facility] DISCHARGE SUMMARY Colton Ronquillo Admitted: 03/10/2022 Discharge Date: 03/19/22 PCP Handoff Recommended Outpatient Testing Instructed to follow-up with addiction medicine, gastroenterology Discussed importance of fluid restriction and alcohol cessation Results Pending At Discharge None Clinical Summary Colton Ronquillo is a 56 y.o. male patient of Taty Neal MD with history of depression, hypertension, alcohol abuse presents to the hospital due to concern of suicidal ideation. While in the ER patient denies being actively suicidal but does state that he does not have will to live. Patient also wants help with alcohol detoxification and is being admitted to medical service with psych consulted for medicine consult. Acute blood loss normocytic anemia To rule out acute GI bleed (peptic ulcer disease or esophageal varices bleed secondary to alcohol abuse) Hemoglobin dropped from 14-7.7. Most recent hemoglobin 8.0->7.8->8.0 Noted increasing BUN 3 days ago As per report patient takes meloxicam daily due to chronic arthritis. Also alcohol use 10-12 beers per day Iron study showed iron deficiency with iron sat of 5% folate levels. Normal Occult blood stool Protonix 40 mg twice daily. Status post EGD on 03/16-Multiple non bleeding antral ulcers identified.Bx negative H pylori. Recommend 3 month protonix 40mg po BID and carafate 1g po QID, Follow up with Dr. Shea in 2-3 months for repeat endoscopic evaluation then. Avoid NSAIDs. 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 Patient on Cymbalta and Wellbutrin Sodium on admission 136 there after dropping to high 130s then 125 Trend sodium every 6 hours and call if sodium less than 122 or more than 132 nephrology Fluid restriction 1800 mL/day Holding IV fluids for now Sodium from 125 up to 131 stable Discussed with nephrology since patient was started on Cymbalta will discontinue Wellbutrin Discussed with the patient fluid restriction and alcohol cessation Orthostatic hypotension resolved Patient blood pressure drop down to the 70s upon the standing LEANA hose for now due to hyponatremia Acute alcohol abuse: Alcohol intoxication IV then p.o. multivitamins [facility] protocol Dr. Luke consulted recommended phenobarbital taper, topiramate 50 mg twice daily, baclofen, keep potassium more around 4 and magnesium above 2. Patient to be discharged to catalyst withdrawal unit. Clonidine patch. Discussed in length with patient regarding catalyst, alcohol cessation in possibility of AA if he is interested for long-term support Anxiety/depression ? Concern of suicidal, present on admission, currently resolved. Continue bupropion Patient currently denies any suicidal ideation/thoughts or attempts. Psychiatry consulted, awaiting input.. Initially one-to-one observation then discontinued. Peripheral neuropathy Continue gabapentin Right and left upper quadrant abdominal pain resolved Serum amylase and lipase unremarkable Ultrasound abdomen largely unremarkable Symptomatic treatment. Physical deconditioning PT OT and social service consulted for discharge plan. AM PAC 16-19. Left shoulder pain Shoulder x-ray ordered Degenerative changes without acute osseous abnormality. Recommended to follow-up as an outpatient with orthopedic Discharge Medications Discharge Medications New Medications Details DULoxetine 30 MG capsule Commonly known as: CYMBALTA Take 1 (one) capsule (30 mg total) by mouth 2 (two) times a day . Quantity: 60 capsule folic acid 1 MG tablet Commonly known as: FOLVITE Start taking on: March 20, 2022 Take 1 (one) tablet (1 mg total) by mouth daily Start: 03/20/22. Quantity: 30 tablet pantoprazole 40 MG tablet Commonly known as: PROTONIX Take 1 (one) tablet (40 mg total) by mouth 2 (two) times a day . Quantity: 60 tablet sucralfate 1 gram tablet Commonly known as: CARAFATE Take 1 (one) tablet (1 g total) by mouth 4 (four) times a day before meals . Quantity: 120 tablet topiramate 25 MG tablet Commonly known as: TOPAMAX Start taking on: March 20, 2022 Take 2 (two) tablets (50 mg total) by mouth daily Start: 03/20/22. Quantity: 60 tablet Stopped Medications amLODIPine 5 MG tablet Commonly known as: NORVASC buPROPion 300 MG 24 hr tablet Commonly known as: WELLBUTRIN XL lisinopriL 40 MG tablet Commonly known as: PRINIVIL,ZESTRIL meloxicam 15 MG tablet Commonly known as: ELDER Physician(s) Follow Up: [facility] [address] [place] [address] (Primary) [phone] (Secondary) [phone] Korey Shea MD [address] [address] Follow up in 1 month(s) Seymour Luke MD [address] [address] Follow up please call for an appointment Condition at Discharge: Stable Disposition: SNF On day of discharge, I performed a final bedside evaluation including a physical exam. I reviewed discharge recommendations with the patient in person. Patient instructions, including activity, were given to the patient/family at discharge. Time spent on discharge: < 30 minutes Completed by: Francois Chris on 03/19/22, 3:42 PM documented in this encounter [facility] [place] 03-17-2022 Consult note Formatting of th is note is different from the original. NEPHROLOGY CONSULTATION NOTE [facility] Patient Name: Colton Ronquillo MR #: [id number] : 1965 Requesting physician: Hospitalist Reason for consult: Hyponatremia Impression/plan: Acute hypotonic hyponatremia: Unknown baseline. 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 Per patient, has been drinking Twelve 28 ounce water pitchers a day while currently hospitalized, which calculates to over 10 liters/day. -Sodium on admission 136, with recent sodium of 125. Recently started on Cymbalta on 03/15. Serum Osmo 258. -Strict I's and O's. -Trend sodium q6 and call is sodium is <122 or >130. -Fluid restriction of 1800 ml/day. -Will check urine electrolytes. -Do not give IV fluids. 2. Acute normocytic anemia: Per primary team and GI. Concerning for GI bleed. Hemoglobin on admission 14.6 with current hemoglobin at 7.9. -EGD today with multiple nonbleeding ulcers, biopsy negative for H. Pylori. -GI recommending 3-months of Protonix 40 mg p.o. twice daily Carafate 1 g p.o. 4 times daily. Avoidance of NSAIDs. 3. Chronic alcohol abuse: Per behavioral medicine and primary team. On CIWA protocol. -Plans for patient to be discharged to catalyst withdrawal unit. 4. Anxiety/depression: - Per behavioral medicine and primary team. Concerns for suicidal ideation on admission. On Wellbutrin chroniallly. Cymbalta added during this stay 5. Orthostatic hypotension -Given that patient is reporting drinking greater than 10 L of fluids per day during this hospitalization doubt this is due to volume depletion. Patient also reported dark stool today and guaiac is positive. Patient will need further evaluation of orthostasis per your expertise. History of Presenting Illness: Colton Ronquillo is a 56 y.o. male on hospital day 7 with a history of anxiety, depression, hypertension, alcohol abuse who presented to the hospital due to concerns of suicidal ideation and to help with alcohol withdrawal. Per patient, states that he was feeling weak and asked his brother to bring him to the emergency department. Ultrasound of the abdomen on 03/13/2022 without hydronephrosis, normal gallbladder, no cholelithiasis, and no biliary duct dilatation. Denies shortness of breath or swelling. Per patient he has been told that he had low sodium levels past due to alcohol. He states last year he was hospitalized at [facility] for cellulitis and was noted to be hyponatremic. He was placed on 2 L fluid restriction and started on salt tabs. Patient reports he is aware that he needs to follow fluid restriction but likes to drink fluids. We have been consulted to manage the patient's hyponatremia which is developed during this hospitalization. Labs noted: Component Latest Ref Rng & Units 03/10/2022 03/11/2022 03/12/2022 03/13/2022 Sodium 135 - 145 mmol/L 136 133 (L) 133 (L) 132 (L) Component Latest Ref Rng & Units 03/15/2022 03/16/2022 03/17/2022 03/17/2022 3:11 AM 10:48 AM Sodium 135 - 145 mmol/L 132 (L) 133 (L) 125 (L) 125 (L) History: Past Medical History: Diagnosis Date Anxiety Depression Hypertension 2017 Past Surgical History: Procedure Laterality Date AMPUTATION FINGER(S) Left 12/16/2021 Procedure: D I P AMPUTATION LEFT MIDDLE FINGER, IRRIGATION AND DEBRIDEMENT; Surgeon: Michael Moffett MD; Location: Main OR; Service: Orthopedic CARPAL TUNNEL RELEASE EGD N/A 03/16/2022 Procedure: ESOPHAGOGASTRODUODENOSCOPY wiith Biopsy; Surgeon: Korey Shea MD; Location: [facility]; Service: General Surgery HERNIA REPAIR INGUINAL OPEN Left ROTATOR CUFF REPAIR Family History: Family History Problem Relation Age of Onset Heart disease Father [] Unable to obtain due to ventilated and/or neurologic status Social History Socioeconomic History Marital status: Single 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 Tobacco Use Smoking status: Never Smokeless tobacco: Never Vaping Use Vaping Use: Some days Substances: THC Devices: Pre-filled or refillable cartridge Substance and Sexual Activity Alcohol use: Yes Alcohol/week: 12.0 standard drinks Types: 12 Cans of beer per week Comment: Drinks daily Drug use: No [] Unable to obtain due to ventilated and/or neurologic status Living Arrangements: Facility Support Systems: Family members, Friends/neighbors Home Medications: Outpatient Medications as of 03/17/2022 Medication Sig amLODIPine (NORVASC) 5 MG tablet Take 1 (one) tablet (5 mg total) by mouth daily . buPROPion (WELLBUTRIN XL) 300 MG 24 hr tablet TAKE ONE TABLET EVERY DAY lisinopriL (PRINIVIL,ZESTRIL) 40 MG tablet Take 1 (one) tablet (40 mg total) by mouth daily . meloxicam (MOBIC) 15 MG tablet TAKE 1 (ONE) TABLET (15 MG TOTAL) BY MOUTH DAILY . gabapentin (NEURONTIN) 300 MG capsule Take 1 (one) capsule (300 mg total) by mouth 3 (three) times a day. Current Hospital Medications: Scheduled Meds: buPROPion 300 mg Oral Q24H SIERRA DULoxetine 30 mg Oral BID folic acid 1 mg Oral Daily lidocaine 1 patch Transdermal Daily melatonin 5 mg Oral Nightly multivitamin 1 tablet Oral Daily pantoprazole 40 mg Intravenous BID polyethylene glycol 17 g Oral Daily senna 1 tablet Oral BID sodium chloride (PF) 5 mL Intravenous Q8H SIERRA topiramate 25 mg Oral Daily topiramate 50 mg Oral Nightly Continuous Infusions: sodium chloride 0.9 % sodium chloride 0.9 % PRN Meds:.acetaminophen, aluminum-magnesium hydroxide-simethicone, hydrOXYzine, magnesium hydroxide, nalOXone AND Notify physician AND naloxone, nitroGLYCERIN, ondansetron, oxyCODONE-acetaminophen, senna, [COMPLETED] Insert peripheral IV AND Saline lock IV AND sodium chloride (PF) AND sodium chloride 0.9 %, Saline lock IV AND sodium chloride (PF) AND sodium chloride (PF) AND sodium chloride 0.9 %, traZODone sodium chloride 0.9 % sodium chloride 0.9 % Allergies: I have reviewed the patient's allergies. Patient has no known allergies. Review of Systems: [x] CV, Resp, GI, Neuro, and all other systems reviewed and negative other than listed in HPI. [] Unable to obtain due to intubation and/or neurologic status. Objective Findings: Vitals:BP 125/80 Pulse 93 Temp 98 F (36.7 C) Resp 18 Ht 5' 11 Wt 77.1 kg (169 lb 15.6 oz) SpO2 96% BMI 23.71 kg/m Intake/Output last 3 shifts: Intake/Output Summary (Last 24 hours) at 03/17/2022 1305 Last data filed at 03/17/2022 1133 Gross per 24 hour Intake 600 ml Output 3200 ml Net -2600 ml I/O last 3 completed shifts: In: 600 [I.V.:600] Out: 3125 [Urine:3125] Physical Examination: General: Age appropriate, NAD. HEENT: Normocephalic, no scleral icterus. Neck: No JVD. Heart: Regular, no murmur, no rub/gallop. Lungs: Clear to ascultation, no rales/wheezing/rhonchi. Good chest wall excursion. Abdomen: Soft, nontender, no supra-public fullness or tenderness. Extremities: No clubbing/cyanosis, no edema. Skin: Warm, dry, normal turgor, no rash, no bruise, no petichiae. Neuro: No myoclonus or tremor. Psych: Normal affect. : [] Abdul present [x] Abdul not present Results/Medications Reviewed: 03/17/22 1:05 PM: Laboratory, Microbiology, Pathology, Radiology, Cardiology, Medications and Transcriptions Laboratory: Results from last 7 days Lab Units 03/17/22 0800 03/17/22 0311 03/16/22 1954 03/15/22 0803/15/2232103/14/22 19403/13/22 0256 WBC K/mcL -- 7.27 -- -- 6.08 -- 5.42 HGB g/dL 7.8* 7.6* 7.8* < > 7.9* < > 9.1* HCT % 22.2* 21.7* 22.2* < > 22.8* < > 26.3* PLT K/mcL -- 234 -- -- 181 -- 199 < > = values in this interval not displayed. Results from last 7 days Lab Units 03/17/22 1048 03/17/22 0311 03/16/22 0946 03/15/2232103/13/22 0256 03/12/22 0302 SODIUM mmol/L 125* 125* 133* 132* 132* 133* POTASSIUM mmol/L -- 3.8 3.7 3.7 3.7 4.0 CHLORIDE mmol/L -- 96* 104 103 100 103 BICARB mmol/L -- 22 20* 23 25 21 BUN mg/dL -- 7* 9 9 23 24 CREATININE mg/dL -- 0.56 0.67 0.79 0.76 0.62 EGFR mL/min/1.73 m2 -- 116 110 105 106 113 GLUCOSE mg/dL -- 120* 110* 102* 86 97 CALCIUM mg/dL -- 8.2* 8.4 8.3* 8.4 8.4 MAGNESIUM mg/dL -- 2.1 -- 2.2 2.2 2.3 PHOSPHORUS mg/dL -- -- -- -- -- 3.8 Urinalysis Comments: Thank you for allowing us to participate in the care of this patient. We will continue to follow. Please call if questions or concerns arise. [facility] [place] 03-17-2022 Consult note Formatting of th is note is different from the original. NEPHROLOGY CONSULTATION NOTE [facility] Patient Name: Colton Ronquillo MR #: [id number] : 1965 Requesting physician: Hospitalist Reason for consult: Hyponatremia Impression/plan: Acute hypotonic hyponatremia: Unknown baseline. 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 Per patient, has been drinking Twelve 28 ounce water pitchers a day while currently hospitalized, which calculates to over 10 liters/day. -Sodium on admission 136, with recent sodium of 125. Recently started on Cymbalta on 03/15. Serum Osmo 258. -Strict I's and O's. -Trend sodium q6 and call is sodium is <122 or >130. -Fluid restriction of 1800 ml/day. -Will check urine electrolytes. -Do not give IV fluids. 2. Acute normocytic anemia: Per primary team and GI. Concerning for GI bleed. Hemoglobin on admission 14.6 with current hemoglobin at 7.9. -EGD today with multiple nonbleeding ulcers, biopsy negative for H. Pylori. -GI recommending 3-months of Protonix 40 mg p.o. twice daily Carafate 1 g p.o. 4 times daily. Avoidance of NSAIDs. 3. Chronic alcohol abuse: Per behavioral medicine and primary team. On CIND protocol. -Plans for patient to be discharged to [facility] withdrawal unit. 4. Anxiety/depression: - Per behavioral medicine and primary team. Concerns for suicidal ideation on admission. On Wellbutrin chroniallly. Cymbalta added during this stay 5. Orthostatic hypotension -Given that patient is reporting drinking greater than 10 L of fluids per day during this hospitalization doubt this is due to volume depletion. Patient also reported dark stool today and guaiac is positive. Patient will need further evaluation of orthostasis per your expertise. History of Presenting Illness: Colton Ronquillo is a 56 y.o. male on hospital day 7 with a history of anxiety, depression, hypertension, alcohol abuse who presented to the hospital due to concerns of suicidal ideation and to help with alcohol withdrawal. Per patient, states that he was feeling weak and asked his brother to bring him to the emergency department. Ultrasound of the abdomen on 03/13/2022 without hydronephrosis, normal gallbladder, no cholelithiasis, and no biliary duct dilatation. Denies shortness of breath or swelling. Per patient he has been told that he had low sodium levels past due to alcohol. He states last year he was hospitalized at [facility] for cellulitis and was noted to be hyponatremic. He was placed on 2 L fluid restriction and started on salt tabs. Patient reports he is aware that he needs to follow fluid restriction but likes to drink fluids. We have been consulted to manage the patient's hyponatremia which is developed during this hospitalization. Labs noted: Component Latest Ref Rng & Units 03/10/2022 03/11/2022 03/12/2022 03/13/2022 Sodium 135 - 145 mmol/L 136 133 (L) 133 (L) 132 (L) Component Latest Ref Rng & Units 03/15/2022 03/16/2022 03/17/2022 03/17/2022 3:11 AM 10:48 AM Sodium 135 - 145 mmol/L 132 (L) 133 (L) 125 (L) 125 (L) History: Past Medical History: Diagnosis Date Anxiety Depression Hypertension 2017 Past Surgical History: Procedure Laterality Date AMPUTATION FINGER(S) Left 12/16/2021 Procedure: D I P AMPUTATION LEFT MIDDLE FINGER, IRRIGATION AND DEBRIDEMENT; Surgeon: Michael Moffett MD; Location: Main OR; Service: Orthopedic CARPAL TUNNEL RELEASE EGD N/A 03/16/2022 Procedure: ESOPHAGOGASTRODUODENOSCOPY wiith Biopsy; Surgeon: Korey Shea MD; Location: Endo; Service: General Surgery HERNIA REPAIR INGUINAL OPEN Left ROTATOR CUFF REPAIR Family History: Family History Problem Relation Age of Onset Heart disease Father [] Unable to obtain due to ventilated and/or neurologic status Social History Socioeconomic History Marital status: Single 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 Tobacco Use Smoking status: Never Smokeless tobacco: Never Vaping Use Vaping Use: Some days Substances: THC Devices: Pre-filled or refillable cartridge Substance and Sexual Activity Alcohol use: Yes Alcohol/week: 12.0 standard drinks Types: 12 Cans of beer per week Comment: Drinks daily Drug use: No [] Unable to obtain due to ventilated and/or neurologic status Living Arrangements: Facility Support Systems: Family members, Friends/neighbors Home Medications: Outpatient Medications as of 03/17/2022 Medication Sig amLODIPine (NORVASC) 5 MG tablet Take 1 (one) tablet (5 mg total) by mouth daily . buPROPion (WELLBUTRIN XL) 300 MG 24 hr tablet TAKE ONE TABLET EVERY DAY lisinopriL (PRINIVIL,ZESTRIL) 40 MG tablet Take 1 (one) tablet (40 mg total) by mouth daily . meloxicam (MOBIC) 15 MG tablet TAKE 1 (ONE) TABLET (15 MG TOTAL) BY MOUTH DAILY . gabapentin (NEURONTIN) 300 MG capsule Take 1 (one) capsule (300 mg total) by mouth 3 (three) times a day. Current Hospital Medications: Scheduled Meds: buPROPion 300 mg Oral Q24H SIERRA DULoxetine 30 mg Oral BID folic acid 1 mg Oral Daily lidocaine 1 patch Transdermal Daily melatonin 5 mg Oral Nightly multivitamin 1 tablet Oral Daily pantoprazole 40 mg Intravenous BID polyethylene glycol 17 g Oral Daily senna 1 tablet Oral BID sodium chloride (PF) 5 mL Intravenous Q8H SIERRA topiramate 25 mg Oral Daily topiramate 50 mg Oral Nightly Continuous Infusions: sodium chloride 0.9 % sodium chloride 0.9 % PRN Meds:.acetaminophen, aluminum-magnesium hydroxide-simethicone, hydrOXYzine, magnesium hydroxide, nalOXone AND Notify physician AND naloxone, nitroGLYCERIN, ondansetron, oxyCODONE-acetaminophen, senna, [COMPLETED] Insert peripheral IV AND Saline lock IV AND sodium chloride (PF) AND sodium chloride 0.9 %, Saline lock IV AND sodium chloride (PF) AND sodium chloride (PF) AND sodium chloride 0.9 %, traZODone sodium chloride 0.9 % sodium chloride 0.9 % Allergies: I have reviewed the patient's allergies. Patient has no known allergies. Review of Systems: [x] CV, Resp, GI, Neuro, and all other systems reviewed and negative other than listed in HPI. [] Unable to obtain due to intubation and/or neurologic status. Objective Findings: Vitals:BP 125/80 Pulse 93 Temp 98 F (36.7 C) Resp 18 Ht 5' 11 Wt 77.1 kg (169 lb 15.6 oz) SpO2 96% BMI 23.71 kg/m Intake/Output last 3 shifts: Intake/Output Summary (Last 24 hours) at 03/17/2022 1305 Last data filed at 03/17/2022 1133 Gross per 24 hour Intake 600 ml Output 3200 ml Net -2600 ml I/O last 3 completed shifts: In: 600 [I.V.:600] Out: 3125 [Urine:3125] Physical Examination: General: Age appropriate, NAD. HEENT: Normocephalic, no scleral icterus. Neck: No JVD. Heart: Regular, no murmur, no rub/gallop. Lungs: Clear to ascultation, no rales/wheezing/rhonchi. Good chest wall excursion. Abdomen: Soft, nontender, no supra-public fullness or tenderness. Extremities: No clubbing/cyanosis, no edema. Skin: Warm, dry, normal turgor, no rash, no bruise, no petichiae. Neuro: No myoclonus or tremor. Psych: Normal affect. : [] Abdul present [x] Abdul not present Results/Medications Reviewed: 03/17/22 1:05 PM: Laboratory, Microbiology, Pathology, Radiology, Cardiology, Medications and Transcriptions Laboratory: Results from last 7 days Lab Units 03/17/22 0800 03/17/22 03103/16/[id number]/15/2280403/15/2232103/14/22194403/13/22 0256 WBC K/mcL -- 7.27 -- -- 6.08 -- 5.42 HGB g/dL 7.8* 7.6* 7.8* < > 7.9* < > 9.1* HCT % 22.2* 21.7* 22.2* < > 22.8* < > 26.3* PLT K/mcL -- 234 -- -- 181 -- 199 < > = values in this interval not displayed. Results from last 7 days Lab Units 03/17/22 1048 03/17/2231003/16/2246 03/15/2232103/13/2225503/12/22 0302 SODIUM mmol/L 125* 125* 133* 132* 132* 133* POTASSIUM mmol/L -- 3.8 3.7 3.7 3.7 4.0 CHLORIDE mmol/L -- 96* 104 103 100 103 BICARB mmol/L -- 22 20* 23 25 21 BUN mg/dL -- 7* 9 9 23 24 CREATININE mg/dL -- 0.56 0.67 0.79 0.76 0.62 EGFR mL/min/1.73 m2 -- 116 110 105 106 113 GLUCOSE mg/dL -- 120* 110* 102* 86 97 CALCIUM mg/dL -- 8.2* 8.4 8.3* 8.4 8.4 MAGNESIUM mg/dL -- 2.1 -- 2.2 2.2 2.3 PHOSPHORUS mg/dL -- -- -- -- -- 3.8 Urinalysis Comments: Thank you for allowing us to participate in the care of this patient. We will continue to follow. Please call if questions or concerns arise. Associated Order(s): IP CONSULT TO NEPHROLOGY NEPHROLOGY CONSULTATION [facility] Patient Name: Colton Ronquillo MR #: [id number] : 1965 Requesting physician: Hospitalist Reason for consult: Hyponatremia Impression/plan: Acute hypotonic hyponatremia: Unknown baseline. 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 Per patient, has been drinking 12 28 ounce water pitchers a day, which calculates to over 10 liters/day. Sodium on admission 136, with recent sodium of 125. Recently started on Cymbalta on 03/15. Serum Osmo 258. -Strict I's and O's. -Trend sodium q6 and call is sodium is <122 or >130. -Fluid restriction of 1800 ml/day. -Will check urine electrolytes. -Hold IV fluids. 2. Acute normocytic anemia: Per primary team and GI. Concerning for GI bleed. Hemoglobin on admission 14.6 with current hemoglobin at 7.9. -EGD today with multiple nonbleeding ulcers, biopsy negative for H. Pylori. -GI recommending 3-months of Protonix 40 mg p.o. twice daily Carafate 1 g p.o. 4 times daily. Avoidance of NSAIDs. 3. Chronic alcohol abuse: Per behavioral medicine and primary team. On CIWA protocol. -Plans for patient to be discharged to catalyst withdrawal unit. 4. Anxiety/depression: Per behavioral medicine and primary team. Concerns for suicidal ideation on admission. -On Wellbutrin. Cymbalta added. History of Presenting Illness: Colton Ronquillo is a 56 y.o. male on hospital day 7 with a history of anxiety, depression, hypertension, alcohol abuse who presented to the hospital due to concerns of suicidal ideation and to help with alcohol withdrawal. Per patient, states that he was feeling weak and asked his brother to bring him to the emergency department. Ultrasound of the abdomen on 03/13/2022 without hydronephrosis, normal gallbladder, no cholelithiasis, and no biliary duct dilatation. Denies shortness of breath or swelling. Per patient he has been told that he had low sodium levels past due to alcohol. We have been consulted to manage the patient's hyponatremia. Labs noted: Component Latest Ref Rng & Units 03/10/2022 03/11/2022 03/12/2022 03/13/2022 Sodium 135 - 145 mmol/L 136 133 (L) 133 (L) 132 (L) Component Latest Ref Rng & Units 03/15/2022 03/16/2022 03/17/202203/1703/17/2022 3:11 AM 10:48 AM Sodium 135 - 145 mmol/L 132 (L) 133 (L) 125 (L) 125 (L) History: Past Medical History: Diagnosis Date Anxiety Depression Hypertension 2017 Past Surgical History: Procedure Laterality Date AMPUTATION FINGER(S) Left 12/16/2021 Procedure: D I P AMPUTATION LEFT MIDDLE FINGER, IRRIGATION AND DEBRIDEMENT; Surgeon: Michael Moffett MD; Location: Main OR; Service: Orthopedic CARPAL TUNNEL RELEASE EGD N/A 03/16/2022 Procedure: ESOPHAGOGASTRODUODENOSCOPY wiith Biopsy; Surgeon: Korey Shea MD; Location: Endo; Service: General Surgery HERNIA REPAIR INGUINAL OPEN Left ROTATOR CUFF REPAIR Family History: Family History Problem Relation Age of Onset Heart disease Father [] Unable to obtain due to ventilated and/or neurologic status Social History Socioeconomic History Marital status: Single 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 Tobacco Use Smoking status: Never Smokeless tobacco: Never Vaping Use Vaping Use: Some days Substances: THC Devices: Pre-filled or refillable cartridge Substance and Sexual Activity Alcohol use: Yes Alcohol/week: 12.0 standard drinks Types: 12 Cans of beer per week Comment: Drinks daily Drug use: No [] Unable to obtain due to ventilated and/or neurologic status Living Arrangements: Facility Support Systems: Family members, Friends/neighbors Home Medications: Outpatient Medications as of 03/17/2022 Medication Sig amLODIPine (NORVASC) 5 MG tablet Take 1 (one) tablet (5 mg total) by mouth daily . buPROPion (WELLBUTRIN XL) 300 MG 24 hr tablet TAKE ONE TABLET EVERY DAY lisinopriL (PRINIVIL,ZESTRIL) 40 MG tablet Take 1 (one) tablet (40 mg total) by mouth daily . meloxicam (MOBIC) 15 MG tablet TAKE 1 (ONE) TABLET (15 MG TOTAL) BY MOUTH DAILY . gabapentin (NEURONTIN) 300 MG capsule Take 1 (one) capsule (300 mg total) by mouth 3 (three) times a day. Current Hospital Medications: Scheduled Meds: buPROPion 300 mg Oral Q24H SIERRA DULoxetine 30 mg Oral BID folic acid 1 mg Oral Daily lidocaine 1 patch Transdermal Daily melatonin 5 mg Oral Nightly multivitamin 1 tablet Oral Daily pantoprazole 40 mg Intravenous BID polyethylene glycol 17 g Oral Daily senna 1 tablet Oral BID sodium chloride (PF) 5 mL Intravenous Q8H SIERRA topiramate 25 mg Oral Daily topiramate 50 mg Oral Nightly Continuous Infusions: sodium chloride 0.9 % sodium chloride 0.9 % PRN Meds:.acetaminophen, aluminum-magnesium hydroxide-simethicone, hydrOXYzine, magnesium hydroxide, nalOXone AND Notify physician AND naloxone, nitroGLYCERIN, ondansetron, oxyCODONE-acetaminophen, senna, [COMPLETED] Insert peripheral IV AND Saline lock IV AND sodium chloride (PF) AND sodium chloride 0.9 %, Saline lock IV AND sodium chloride (PF) AND sodium chloride (PF) AND sodium chloride 0.9 %, traZODone sodium chloride 0.9 % sodium chloride 0.9 % Allergies: I have reviewed the patient's allergies. Patient has no known allergies. Review of Systems: [x] CV, Resp, GI, Neuro, and all other systems reviewed and negative other than listed in HPI. [] Unable to obtain due to intubation and/or neurologic status. Objective Findings: Vitals:BP 125/80 Pulse 93 Temp 98 F (36.7 C) Resp 18 Ht 5' 11 Wt 77.1 kg (169 lb 15.6 oz) SpO2 96% BMI 23.71 kg/m Intake/Output last 3 shifts: Intake/Output Summary (Last 24 hours) at 03/17/2022 1221 Last data filed at 03/17/2022 1133 Gross per 24 hour Intake 600 ml Output 3200 ml Net -2600 ml I/O last 3 completed shifts: In: 600 [I.V.:600] Out: 3125 [Urine:3125] Physical Examination: General: Age appropriate, NAD. HEENT: Normocephalic, no scleral icterus. Neck: No JVD. Heart: Regular, no murmur, no rub/gallop. Lungs: Clear to ascultation, no rales/wheezing/rhonchi. Good chest wall excursion. Abdomen: Soft, nontender, no supra-public fullness or tenderness. Extremities: No clubbing/cyanosis, no edema. Skin: Warm, dry, normal turgor, no rash, no bruise, no petichiae. Neuro: No myoclonus or tremor. Psych: Normal affect. : [] Abdul present [x] Abdul not present Results/Medications Reviewed: 03/17/22 12:21 PM: Laboratory, Microbiology, Pathology, Radiology, Cardiology, Medications and Transcriptions Laboratory: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 with device Emt B - Standing Static: wheeled walker Standing Balance - Dynamic: Minimal assist, with bilateral UE support, with device Emt B - Standing Dynamic: wheeled walker Loss of Balance- Standing Dynamic: intermittent (insteadiness) Bed Mobility Rolling: Independent, Head of bed flat Supine to Sit: Stand by assist, Head of bed flat Sit to Supine: (NT: pt up in chair post PT eval; Break away alarm donned/ armed. Nursing notifed) Emt B: (none) Transfers Sit to Stand: Minimal assist (impulsivitly; uses x2 rocking to build momentum for STS; Requires verbal cues for slow , controlled transition of hands, one at a time from bed to walker; ( x2 trials STS)) Bed to Chair: Minimal assist Stand Pivot Transfers: Minimal assist Emt B: BUE, wheeled walker Gait/Locomotion Gait Assistance: Minimal assist (with close chair follow) Assistive Device: BUE, wheeled walker Distance: 9 Feet Rest Breaks: Yes Rest Break Position: seated Rest Break Duration: 5 mins Pattern: step to, step through, narrow base of support, over reliance on upper extremities, forward flexed, R decreased step length, L decreased step length, ataxic, decreased dixie (steps per minute) (whole body tremoring) Weight Bearing Status: able to maintain Gait Loss(es) of Balance: intermittent, multidirectional Environment/Terrain: closed environment, minimal to no distractions Home Living Obtained Home Living and PLOF info from: Patient Lives With: Alone Type of Home: House Home Layout: Two level, 1/2 bath on main level, Full bath on second level, Bed on second level, Stairs between floors, Laundry in basement Rails on inside stairs: 1 rail Number of stairs inside home: 10 Steps to enter home: Yes Rails to enter home: None Number of stairs to enter home: (2+ 1 steps into house) Bathroom Shower/Tub: Tub/shower unit, Second level Bathroom Toilet: Standard, Main level, Second level Bathroom Equipment: Hand-held showerhead Bathroom Accessibility: Accessible via walker Mobility Equipment: (none per pt report) Additional Objective Details - Home Living: Pt reports he is entering [facility] [place]. 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) Level of [place] - ADLs: Independent Level of [place] - Homemaking: Independent Driving: Patient drives Vocational: On disability Subjective Impression - Prior Function: Pt reports hx of several falls in last 6 months PHYSICAL THERAPY TREATMENT NOTE Total Treatment Time (Total Session Time): 38 Minutes Total Timed Code Treatment Minutes: 10 Minutes Gait Training Skilled Intervention Provided: patient education, verbal cues, monitoring patient response with activity For: fall prevention, gait technique, improved posture, attention to task, breathing techniques, device management and safe use of device, device adjustment fit to patient, efficient movement, energy conservation techniques, gait sequence, LE management, necessary precautions, self-monitoring during activity (reminder to maintain hands on walker, properly, throughout ambulation trials.) Resulting in: improved activity tolerance Therapeutic Activities Bed Mobility Skilled Intervention Provided: patient education, monitoring patient response with activity, monitoring patient response with positional changes For: efficient movement, energy conservation, fall prevention, safety during functional tasks, self-monitoring during activity Resulting in: improved functional independence, improved performance Transfers Skilled Intervention Provided: patient education, verbal cues, facilitation, monitoring patient response with activity, monitoring patient response with positional changes, provided step by step instructions For: fall prevention, UE positioning, LE management, attention to task, efficient movement, controlled descent, energy conservation, prevention of neurologic fatigue, safety during functional tasks, safe use of AD and/or equipment, self-monitoring during activity, sequencing of movement, weight shifting Resulting in: improved activity tolerance, improved performance Additional Treatment Details Pt very anxious and emotional throughout PT evaluation. Much emotional support provided. Pt is very fearful of falling and becomes significantly anxious with ambulation trial. Pt reports dizziness with ambulation of 10 ft, requiring min A for safety ( especially as pt demonstrated significant tremoring). BP 134/96 upon sitting. Pt reclined and legs elevated. Nursing notified of elevated BP. Pt became tearful and Much emotional support provided again. PT discussed methods for shifting focus to decrease anxiety. PT will need assist for safety of functional mobility at discharge due to weakness/ balance issues and tremoring as this increases pt risk for falls. Patient educated on need for use of gait belt for safety with functional mobility, fall prevention, energy conservation, need for slow transitional movements and directional changes to decrease fall risk, safe/ proper use of assistive device, proper hand placement for transfer safety , proper, and safe mobility through verbal instruction and demonstration. Pt educated on need for patient to use call light to notify staff to assist with all functional transfers/mobility to maximize safety and decrease risk for falls. Patient educated on purpose, plan and goals for skilled PT services and initiation of discharge planning. Call light within patients reach. Nursing notified that patient is up in chair/ released to nursing with x2 assist with use of 2ww. Break away alarm on post PT evaluation. Pt verbalized and demonstrated understanding of education. Will continue to progress pt per POC. Past Medical History: Diagnosis Date Depression Hypertension 2017 Past Surgical History: Procedure Laterality Date AMPUTATION FINGER(S) Left 12/16/2021 Procedure: D I P AMPUTATION LEFT MIDDLE FINGER, IRRIGATION AND DEBRIDEMENT; Surgeon: Michael Moffett MD; Location: Main OR; Service: Orthopedic CARPAL TUNNEL RELEASE HERNIA REPAIR INGUINAL OPEN Left ROTATOR CUFF REPAIR For complete objective data, detailed plan of care and patient education refer to: PT Evaluation flowsheet, PT Evaluation and Treatment flowsheet, PT Treatment flowsheet, patient Plan of Care, Plan of Care progress note, and Patient Education. This note stands as the current Discharge Summary upon patient discharge from the hospital or completion of Physical Therapy Plan. Associated Order(s): IP CONSULT TO CARE MANAGEMENT Care Management Consult Note Date: 03/11/2022 Time: 2:57 PM Patient Name: Colton Ronquillo Date of : 1965 Reason for Consult: Discharge Needs Community, Mental Health, Additional Resources Discharge Plan: Discharging Transportation Plan: Discharge Plan Status: Care coordination consulted for community resources. Patient was evaluated by behavioral health and addiction medicine. The Substance abuse navigator is following. Assessment and Background Information: Type of Residence: Private residence Associated Order(s): IP CONSULT TO ADDICTION MEDICINE ADDICTION MEDICINE CONSULT NOTE Patient Name: Colton Ronquillo Admit Date: [id number] MR #: [id number] : 1965 Physicians: Taty Neal MD (Family); No ref. provider found (referring) Principal Problem: Alcohol withdrawal delirium, acute, hyperactive (HCC) Active Problems: Severe episode of recurrent major depressive disorder, without psychotic features (HCC) Assessment and Plan: ALCOHOL ABUSE Spoke with Dr Morel for plan Will change to phenobarbital taper Will add topiramate 50 BID Add baclofen for shakes Would continue to keep potassium 4.0 and magnesium 2.0 or higher and multivitamin IF cleared by he is on the intake wait list for else Tuesday for the [facility]. Hopefully they can be updated daily at [phone]. He does not need to have completed his withdrawal fully but does need to not be a danger to himself Assessment Detail: The total time spent for this visit was 65 to 70 minutes. Greater than 50% of the time was spent in counseling and coordination of care. Reason for Consult: Medical management of alcohol use disorder. Medical management of alcohol withdrawal symptoms. Management of substance use disorder Linking to outpatient services. Counseling services. History of Present Illness: Colton Ronquillo is a 56 y.o. y/o male presenting from home with c/o depressed about drinking Chief Complaint Patient presents with Alcohol Problem Patient seen in [facility]. Tells me that he has been drinking daily since age 17. No legal trouble. Has been trying to cut down drinking on his own but keeps getting more and more anxious. Right now primarily anxious and sweats. Not really sure what will happen next Tells me he usually feels very depressed when he is drinking but the next day is not. Feels safer now that here. Has maybe one sober friend. Never been to groups. His boss suggested residential for 30 to 60 days States stops and gets beer from gas station on his way home every day Past Medical History: Diagnosis Date Depression Hypertension 2017 Past Surgical History: Procedure Laterality Date AMPUTATION FINGER(S) Left 12/16/2021 Procedure: D I P AMPUTATION LEFT MIDDLE FINGER, IRRIGATION AND DEBRIDEMENT; Surgeon: Michael Moffett MD; Location: Main OR; Service: Orthopedic CARPAL TUNNEL RELEASE HERNIA REPAIR INGUINAL OPEN Left ROTATOR CUFF REPAIR Family History Problem Relation Age of Onset Heart disease Father Social History Socioeconomic History Marital status: Single 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 Substance(s) of Choice beer Treatment history: none Longest period of sobriety: 1 or 2 days OD history: no Typical withdrawal symptoms: anxiety, restlessness, agitation, sweating, cold sweats, tremors, and dizziness History of precipitated withdrawal: no Seizure history: no Psychiatric History: Diagnoses: no Provider: no SI or SA: somewhat Previous Medications Medication Sig buPROPion (WELLBUTRIN XL) 300 MG 24 hr tablet TAKE ONE TABLET EVERY DAY gabapentin (NEURONTIN) 300 MG capsule Take 1 (one) capsule (300 mg total) by mouth 3 (three) times a day. meloxicam (MOBIC) 15 MG tablet TAKE 1 (ONE) TABLET (15 MG TOTAL) BY MOUTH DAILY . No Known Allergies Review of Systems All other systems reviewed and are negative. Patient Vitals for the past 24 hrs: BP Temp Temp src Pulse Resp SpO2 03/10/22 1400 134/84 -- -- 86 16 95 % 03/10/22 1135 (!) 153/119 -- -- -- -- -- 03/10/22 0910 (!) 170/100 98.5 F (36.9 C) Oral 92 16 99 % 03/10/22 0816 (!) 155/89 98.4 F (36.9 C) -- (!) 108 -- 100 % Physical Exam Constitutional: Appearance: Normal appearance. He is well-developed. Comments: Shaky and anxious No slur HENT: Head: Normocephalic. Eyes: General: No scleral icterus. Conjunctiva/sclera: Conjunctivae normal. Pupils: Pupils are equal, round, and reactive to light. Cardiovascular: Rate and Rhythm: Normal rate. Pulmonary: Effort: Pulmonary effort is normal. Musculoskeletal: General: Normal range of motion. Cervical back: Normal range of motion and neck supple. Skin: General: Skin is warm and dry. Neurological: General: No focal deficit present. Mental Status: He is alert and oriented to person, place, and time. Psychiatric: Mood and Affect: Mood normal. Behavior: Behavior normal. Allergy Information: I have reviewed the patient's allergies. Patient has no known allergies. Home Medications: Outpatient Medications as of 03/10/2022 Medication Sig buPROPion (WELLBUTRIN XL) 300 MG 24 hr tablet TAKE ONE TABLET EVERY DAY gabapentin (NEURONTIN) 300 MG capsule Take 1 (one) capsule (300 mg total) by mouth 3 (three) times a day. meloxicam (MOBIC) 15 MG tablet TAKE 1 (ONE) TABLET (15 MG TOTAL) BY MOUTH DAILY . Laboratory & Radiographic Imaging (if done): Recent Results (from the past 24 hour(s)) Alcohol, Medical Collection Time: 03/10/22 8:56 AM Result Value Ref Range Alcohol (Medical) 62.10 (H) <10.00 mg/dL Chem 7 Collection Time: 03/10/22 8:56 AM Result Value Ref Range Sodium 136 135 - 145 mmol/L Potassium 3.8 3.5 - 5.1 mmol/L Chloride 102 98 - 108 mmol/L Bicarbonate 20 (L) 21 - 32 mmol/L Anion Gap 18 10 - 20 mmol/L Glucose 88 65 - 99 mg/dL BUN 4 (L) 8 - 25 mg/dL Creatinine 0.72 0.50 - 1.30 mg/dL eGFR 108 >=60 mL/min/1.73 m2 BUN/Creatinine Ratio 5.6 (L) 10.0 - 20.0 Hepatic Function Panel (LFT) Collection Time: 03/10/22 8:56 AM Result Value Ref Range Total Protein 7.0 6.0 - 8.0 g/dL Albumin 3.4 3.2 - 5.2 g/dL Total Bilirubin 0.2 0.0 - 1.3 mg/dL Bilirubin, Direct <0.1 0.0 - 0.4 mg/dL Alkaline Phosphatase 65 40 - 150 U/L AST 41 0 - 45 U/L ALT 20 14 - 65 U/L COVID-19, Molecular Collection Time: 03/10/22 8:56 AM Specimen: Nasopharyngeal; Swab Result Value Ref Range SARS-CoV-2 Not Detected Not Detected CBC Auto Differential Collection Time: 03/10/22 8:56 AM Result Value Ref Range WBC 5.33 4.50 - 11.00 K/mcL RBC 4.26 (L) 4.50 - 5.90 M/mcL Hemoglobin 14.6 13.5 - 17.5 g/dL Hematocrit 40.7 (L) 41.0 - 53.0 % MCV 95.5 80.0 - 100.0 fL MCH 34.3 (H) 26.0 - 34.0 pg MCHC 35.9 31.0 - 37.0 g/dL Platelets 256 150 - 400 K/mcL RDW - CV 12.3 11.6 - 14.8 % MPV 8.7 (L) 9.4 - 12.4 fL Neutrophils 74.0 % Lymphocytes 16.9 % Monocytes 7.9 % Eosinophils 0.0 % Basophils 0.6 % IG Percent 0.60 % Neutrophils Abs 3.95 1.70 - 7.00 K/mcL Lymphocytes Abs 0.90 0.90 - 4.00 K/mcL Monocytes Abs 0.42 0.30 - 0.90 K/mcL Eosinophils Abs 0.00 0.00 - 0.50 K/mcL Basophils Abs 0.03 0.00 - 0.30 K/mcL IG Absolute 0.03 0.00 - 0.30 K/mcL Nucleated RBC 0.0 % Nucleated RBC Abs 0.00 0.00 - 0.00 K/mcL Urinalysis Collection Time: 03/10/22 10:03 AM Result Value Ref Range Color, Urine Yellow Colorless, Yellow Clarity, Urine Clear Clear Specific [place] 1.020 1.005 - 1.025 pH, Urine 6.0 5.0 - 7.0 Protein, Urine Negative Negative mg/dL Glucose, Urine Negative Negative mg/dL Ketones, Urine Trace (A) Negative mg/dL Bilirubin, Urine Negative Negative Urobilinogen, Urine <2.0 <2.0 mg/dL Blood, Urine Negative Negative Nitrite, Urine Negative Negative Leukocyte Esterase, Urine Negative Negative WBCs, Urine 1 0 - 5 /hpf RBCs, Urine <1 0 - 3 /hpf Bacteria, Urine None Seen None Seen /hpf Mucus, Urine Rare None Seen, Rare /lpf Urine Drug Screen Collection Time: 03/10/22 10:03 AM Result Value Ref Range Amphetamine Screen, Urine None Detected None Detected Barbiturate Screen, Urine None Detected None Detected Benzodiazepine Screen, Urine None Detected None Detected Cannabinoid Screen, Urine None Detected None Detected Cocaine, Screen Urine None Detected None Detected Methadone Screen, Urine None Detected None Detected Opiate Screen, Urine None Detected None Detected Oxycodone Screen, Urine None Detected None Detected Buprenorphine, Ur None Detected None Detected Fentanyl, Ur None Detected None Detected Lab Results Component Value Date AMPHUR None Detected 03/10/2022 BARBUR None Detected 03/10/2022 BENZUR None Detected 03/10/2022 THCUR None Detected 03/10/2022 COCAINESUR None Detected 03/10/2022 URMETH None Detected 03/10/2022 OPIATEUR None Detected 03/10/2022 UROXYCODONE None Detected 03/10/2022 FENTANYLUR None Detected 03/10/2022 BUPUR None Detected 03/10/2022 CT Head Or Brain Without Contrast Final Result No acute noncontrast CT brain abnormality. Mild cortical atrophic changes are noted. [facility]/ Workstation ID: [id number] Seymour Luke MD This note was dictated using voice-recognition software for expedited communication. Please kindly excuse any typos or mis-recognized words. 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 This proposal manager writer only diagnosed Depression. DIAGNOSIS/ACTIVE PROBLEM LIST Medical Problems Hospital Problem List Codes * (Principal) Alcohol withdrawal delirium, acute, hyperactive (HCC) ICD-10-CM: F10.231 ICD-9-CM: 291.0 Severe episode of recurrent major depressive disorder, without psychotic features (HCC) ICD-10-CM: F33.2 ICD-9-CM: 296.33 Non-Hospital Problem List Codes Carpal tunnel syndrome, bilateral ICD-10-CM: G56.03 ICD-9-CM: 354.0 Arthritis, wrist ICD-10-CM: M19.039 ICD-9-CM: 716.93 Laceration of left index finger with damage to nail ICD-10-CM: S61.311A ICD-9-CM: 883.0 Closed nondisplaced fracture of middle third of navicular bone of left wrist ICD-10-CM: S62.025A ICD-9-CM: 814.01 Traumatic amputation of left index finger ICD-10-CM: S68.111A ICD-9-CM: 886.0 CHIEF COMPLAINT/HISTORY OF PRESENT ILLNESS Chief Complaint/History Present Illness Chief Complaint: Dizzy, disoriented at work Current Symptoms: Depression, Anxiety, Substance abuse, Suicidal, Sleep disturbance Sleep Disturbance: Naps during the day (hypersomnia) Problems Related to: Economic, Health, Social environment History of Present Illness: Colton is a 56yo male who presents to the ED with complaints of alcohol withdrawal symptoms and suicidal ideation. He states that he was at work today and was dizzy and disoriented. Patient states he is a daily drinker of at least 12 x 12oz beers and last drinks was yesterday evening. He reports being a daily drinker for 35 years. He has had some recent health concerns and gives this as motivation to stop drinking. Patient endorses symptoms of depression including sadness, hopelessness, hypersomnia, fatigue/non-restorative sleep, anxiety, feelings of worthlessness (making statements to family that he isn't good to anyone anymore), and recurrent thoughts of . He denies any plan or intent for suicide but admits to a passive wish. His sister reports that patient was planning his eulogy last week and stated he didn't care if he crashed his motorcycle. Patient confirms these statements. He states he has no will to live. Patient's sister is in room for part of assessment and provides collateral. She does not feel comfortable with patient being discharged from the hospital due to imminent lethality concerns. She does have concern that he is suicidal based on his planning eulogy and statements about not caring if he dies. PAST PSYCHIATRIC HISTORY Past Psychiatric History Previous Psychiatric Diagnosis: Depression and Anxiety Previous Psychiatric Hospitalizations: None Current Psychiatric Medications: Wellbutrin XL 300mg ALCOHOL/DRUG ABUSE HISTORY Alcohol/Drug Abuse History Current Alcohol Use (Frequency): Frequent Amount of Alcohol Consumed: At least 12 x 12oz beers daily and sometimes also 24oz of Wicked Apple which is an 8% beer per patient Pattern of Alcohol Use: Daily Date Last Used: Yesterday evening Withdrawal Symptoms/History of Withdrawal: Pt denies Current Drug Use: No History/Current Alcohol/Drug Treatment: None MENTAL STATUS EVALUATION Mental Status Evaluation General Appearance: Equal to stated age Orientation: Oriented to person, place, and time Level of Consciousness: Alert Mood/Affect: Anxious Behavior: Cooperative, Appropriate to situation Remote Memory: WDL Language and Speech Content: Appropriate Preoccupations: (none) Impulse Control: Shows poor planning Insight: Awareness Judgment: Fair PATIENT STRENGTHS Patient Strengths Patient Strengths: Basic self-care skills, Vocationa/academic skills, Family/friends, Housing, Intellectual abilities, Insight, Interpersonal skills, Leisure skills RISK ASSESSMENT Risk Factors Recent Psychological Experiences: Recent negative physical changes Current Suicidal Ideation: Yes Describe Current Suicidal Ideation : Pt states he has no will to live. Sister reports patient has stated he doesn't care if he wrecks his motorcycle. Previous Suicidal Ideation: No Current Suicide Attempt: No Previous Suicide Attempt: No Current Self Harm Behavior: No Previous Self Harm Behavior: No Current Plans to Harm Another: No Previous Plans to Harm Another: No History of Attempts to Harm Another: No Access to Weapons: Yes Describe Access to Weapons: Pt states he has many guns Violent Episode: No Previous Violent Episode: No Family History of Suicide: No Family History of Mental Illness: No Family History of Substance Abuse: Yes Describe Family History of Substance Abuse Text: Brother with alcohol abuse Elopement: (Elopement precautions appropriate) Methods to Calm Down: No preference Restraint Risk Factors: (Unknown trauma history) PROTECTIVE FACTORS Protective Factors Family and Community Support (Connectedness): Yes Ongoing Medical and Mental Health Services (Community Support): No Skills In Problem Solving and Conflict Resolution (Coping Skills): Yes Cultural and Scientologist Beliefs: Yes Access to Weapons: Yes TREATMENT RECOMMENDATIONS AND CLINICAL SUMMARY Treatment Recommendations and Clinical Summary Current Recommendations: Medical admission RATIONALE/PLAN FOR TREATMENT: Patient is being medically admitted to treat alcohol withdrawal symptoms. Please consult inpatient behavioral health for ongoing BH management. documented in this encounter [facility] 03-17-2022 Consult note Associated Order (s): IP CONSULT TO NEPHROLOGY NEPHROLOGY CONSULTATION [facility] Patient Name: Colton Ronquillo MR #: [id number] : 1965 Requesting physician: Hospitalist Reason for consult: Hyponatremia Impression/plan: Acute hypotonic hyponatremia: Unknown baseline. 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 Per patient, has been drinking 12 28 ounce water pitchers a day, which calculates to over 10 liters/day. Sodium on admission 136, with recent sodium of 125. Recently started on Cymbalta on 03/15. Serum Osmo 258. -Strict I's and O's. -Trend sodium q6 and call is sodium is <122 or >130. -Fluid restriction of 1800 ml/day. -Will check urine electrolytes. -Hold IV fluids. 2. Acute normocytic anemia: Per primary team and GI. Concerning for GI bleed. Hemoglobin on admission 14.6 with current hemoglobin at 7.9. -EGD today with multiple nonbleeding ulcers, biopsy negative for H. Pylori. -GI recommending 3-months of Protonix 40 mg p.o. twice daily Carafate 1 g p.o. 4 times daily. Avoidance of NSAIDs. 3. Chronic alcohol abuse: Per behavioral medicine and primary team. On CIWA protocol. -Plans for patient to be discharged to [facility] withdrawal unit. 4. Anxiety/depression: Per behavioral medicine and primary team. Concerns for suicidal ideation on admission. -On Wellbutrin. Cymbalta added. History of Presenting Illness: Colton Ronquillo is a 56 y.o. male on hospital day 7 with a history of anxiety, depression, hypertension, alcohol abuse who presented to the hospital due to concerns of suicidal ideation and to help with alcohol withdrawal. Per patient, states that he was feeling weak and asked his brother to bring him to the emergency department. Ultrasound of the abdomen on 03/13/2022 without hydronephrosis, normal gallbladder, no cholelithiasis, and no biliary duct dilatation. Denies shortness of breath or swelling. Per patient he has been told that he had low sodium levels past due to alcohol. We have been consulted to manage the patient's hyponatremia. Labs noted: Component Latest Ref Rng & Units 03/10/2022 03/11/2022 03/12/2022 03/13/2022 Sodium 135 - 145 mmol/L 136 133 (L) 133 (L) 132 (L) Component Latest Ref Rng & Units 03/15/2022 03/16/2022 03/17/2022 03/17/2022 3:11 AM 10:48 AM Sodium 135 - 145 mmol/L 132 (L) 133 (L) 125 (L) 125 (L) History: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 Reason for Consult: Medical management of alcohol use disorder. Medical management of alcohol withdrawal symptoms. Management of substance use disorder Linking to outpatient services. Counseling services. History of Present Illness: Colton Ronquillo is a 56 y.o. y/o male presenting from home with c/o depressed about drinking Chief Complaint Patient presents with Alcohol Problem Patient seen in [facility]. Tells me that he has been drinking daily since age 17. No legal trouble. Has been trying to cut down drinking on his own but keeps getting more and more anxious. Right now primarily anxious and sweats. Not really sure what will happen next Tells me he usually feels very depressed when he is drinking but the next day is not. Feels safer now that here. Has maybe one sober friend. Never been to groups. His boss suggested residential for 30 to 60 days States stops and gets beer from gas station on his way home every day Past Medical History: Diagnosis Date Depression Hypertension 2017 Past Surgical History: Procedure Laterality Date AMPUTATION FINGER(S) Left 12/16/2021 Procedure: D I P AMPUTATION LEFT MIDDLE FINGER, IRRIGATION AND DEBRIDEMENT; Surgeon: Michael Moffett MD; Location: Main OR; Service: Orthopedic CARPAL TUNNEL RELEASE HERNIA REPAIR INGUINAL OPEN Left ROTATOR CUFF REPAIR Family History Problem Relation Age of Onset Heart disease Father Social History Socioeconomic History Marital status: Single 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 Substance(s) of Choice beer Treatment history: none Longest period of sobriety: 1 or 2 days OD history: no Typical withdrawal symptoms: anxiety, restlessness, agitation, sweating, cold sweats, tremors, and dizziness History of precipitated withdrawal: no Seizure history: no Psychiatric History: Diagnoses: no Provider: no SI or SA: somewhat Previous Medications Medication Sig buPROPion (WELLBUTRIN XL) 300 MG 24 hr tablet TAKE ONE TABLET EVERY DAY gabapentin (NEURONTIN) 300 MG capsule Take 1 (one) capsule (300 mg total) by mouth 3 (three) times a day. meloxicam (MOBIC) 15 MG tablet TAKE 1 (ONE) TABLET (15 MG TOTAL) BY MOUTH DAILY . No Known Allergies Review of Systems All other systems reviewed and are negative. Patient Vitals for the past 24 hrs: BP Temp Temp src Pulse Resp SpO2 03/10/22 1400 134/84 -- -- 86 16 95 % 03/10/22 1135 (!) 153/119 -- -- -- -- -- 03/10/22 0910 (!) 170/100 98.5 F (36.9 C) Oral 92 16 99 % 03/10/22 0816 (!) 155/89 98.4 F (36.9 C) -- (!) 108 -- 100 % Physical Exam Constitutional: Appearance: Normal appearance. He is well-developed. Comments: Shaky and anxious No slur HENT: Head: Normocephalic. Eyes: General: No scleral icterus. Conjunctiva/sclera: Conjunctivae normal. Pupils: Pupils are equal, round, and reactive to light. Cardiovascular: Rate and Rhythm: Normal rate. Pulmonary: Effort: Pulmonary effort is normal. Musculoskeletal: General: Normal range of motion. Cervical back: Normal range of motion and neck supple. Skin: General: Skin is warm and dry. Neurological: General: No focal deficit present. Mental Status: He is alert and oriented to person, place, and time. Psychiatric: Mood and Affect: Mood normal. Behavior: Behavior normal. Allergy Information: I have reviewed the patient's allergies. Patient has no known allergies. Home Medications: Outpatient Medications as of 03/10/2022 Medication Sig buPROPion (WELLBUTRIN XL) 300 MG 24 hr tablet TAKE ONE TABLET EVERY DAY gabapentin (NEURONTIN) 300 MG capsule Take 1 (one) capsule (300 mg total) by mouth 3 (three) times a day. meloxicam (MOBIC) 15 MG tablet TAKE 1 (ONE) TABLET (15 MG TOTAL) BY MOUTH DAILY . Laboratory & Radiographic Imaging (if done): Recent Results (from the past 24 hour(s)) Alcohol, Medical Collection Time: 03/10/22 8:56 AM Result Value Ref Range Alcohol (Medical) 62.10 (H) <10.00 mg/dL Chem 7 Collection Time: 03/10/22 8:56 AM Result Value Ref Range Sodium 136 135 - 145 mmol/L Potassium 3.8 3.5 - 5.1 mmol/L Chloride 102 98 - 108 mmol/L Bicarbonate 20 (L) 21 - 32 mmol/L Anion Gap 18 10 - 20 mmol/L Glucose 88 65 - 99 mg/dL BUN 4 (L) 8 - 25 mg/dL Creatinine 0.72 0.50 - 1.30 mg/dL eGFR 108 >=60 mL/min/1.73 m2 BUN/Creatinine Ratio 5.6 (L) 10.0 - 20.0 Hepatic Function Panel (LFT) Collection Time: 03/10/22 8:56 AM Result Value Ref Range Total Protein 7.0 6.0 - 8.0 g/dL Albumin 3.4 3.2 - 5.2 g/dL Total Bilirubin 0.2 0.0 - 1.3 mg/dL Bilirubin, Direct <0.1 0.0 - 0.4 mg/dL Alkaline Phosphatase 65 40 - 150 U/L AST 41 0 - 45 U/L ALT 20 14 - 65 U/L COVID-19, Molecular Collection Time: 03/10/22 8:56 AM Specimen: Nasopharyngeal; Swab Result Value Ref Range SARS-CoV-2 Not Detected Not Detected CBC Auto Differential Collection Time: 03/10/22 8:56 AM Result Value Ref Range WBC 5.33 4.50 - 11.00 K/mcL RBC 4.26 (L) 4.50 - 5.90 M/mcL Hemoglobin 14.6 13.5 - 17.5 g/dL Hematocrit 40.7 (L) 41.0 - 53.0 % MCV 95.5 80.0 - 100.0 fL MCH 34.3 (H) 26.0 - 34.0 pg MCHC 35.9 31.0 - 37.0 g/dL Platelets 256 150 - 400 K/mcL RDW - CV 12.3 11.6 - 14.8 % MPV 8.7 (L) 9.4 - 12.4 fL Neutrophils 74.0 % Lymphocytes 16.9 % Monocytes 7.9 % Eosinophils 0.0 % Basophils 0.6 % IG Percent 0.60 % Neutrophils Abs 3.95 1.70 - 7.00 K/mcL Lymphocytes Abs 0.90 0.90 - 4.00 K/mcL Monocytes Abs 0.42 0.30 - 0.90 K/mcL Eosinophils Abs 0.00 0.00 - 0.50 K/mcL Basophils Abs 0.03 0.00 - 0.30 K/mcL IG Absolute 0.03 0.00 - 0.30 K/mcL Nucleated RBC 0.0 % Nucleated RBC Abs 0.00 0.00 - 0.00 K/mcL Urinalysis Collection Time: 03/10/22 10:03 AM Result Value Ref Range Color, Urine Yellow Colorless, Yellow Clarity, Urine Clear Clear Specific [place] 1.020 1.005 - 1.025 pH, Urine 6.0 5.0 - 7.0 Protein, Urine Negative Negative mg/dL Glucose, Urine Negative Negative mg/dL Ketones, Urine Trace (A) Negative mg/dL Bilirubin, Urine Negative Negative Urobilinogen, Urine <2.0 <2.0 mg/dL Blood, Urine Negative Negative Nitrite, Urine Negative Negative Leukocyte Esterase, Urine Negative Negative WBCs, Urine 1 0 - 5 /hpf RBCs, Urine <1 0 - 3 /hpf Bacteria, Urine None Seen None Seen /hpf Mucus, Urine Rare None Seen, Rare /lpf Urine Drug Screen Collection Time: 03/10/22 10:03 AM Result Value Ref Range Amphetamine Screen, Urine None Detected None Detected Barbiturate Screen, Urine None Detected None Detected Benzodiazepine Screen, Urine None Detected None Detected Cannabinoid Screen, Urine None Detected None Detected Cocaine, Screen Urine None Detected None Detected Methadone Screen, Urine None Detected None Detected Opiate Screen, Urine None Detected None Detected Oxycodone Screen, Urine None Detected None Detected Buprenorphine, Ur None Detected None Detected Fentanyl, Ur None Detected None Detected Lab Results Component Value Date AMPHUR None Detected 03/10/2022 BARBUR None Detected 03/10/2022 BENZUR None Detected 03/10/2022 THCUR None Detected 03/10/2022 COCAINESUR None Detected 03/10/2022 URMETH None Detected 03/10/2022 OPIATEUR None Detected 03/10/2022 UROXYCODONE None Detected 03/10/2022 FENTANYLUR None Detected 03/10/2022 BUPUR None Detected 03/10/2022 CT Head Or Brain Without Contrast Final Result No acute noncontrast CT brain abnormality. Mild cortical atrophic changes are noted. [facility]/ Workstation ID: [id number] Seymour Luke MD This note was dictated using voice-recognition software for expedited communication. Please kindly excuse any typos or mis-recognized words. [facility] [place] Work Phone: 03-10-2022 Note Formatting of this n ote might be different from the original. This [facility] member was bedside with Pt. Pt sister was also in the room. Pt sister is a great support system for the pt. Pt is being hospitalized. [facility] team will continue to follow up with pt as pt states he is interested in inpatient treatment after discharge. LAKIN provided pt with inpatient option along with LAKIN contact information providing the pt or family have question. Associated attestation - Roxanna Nicolas RN - 03/15/2022 10:05 AM EDT Note reviewed by RN. [facility] 03-10-2022 History and physical note [facility] [place] HISTORY AND PHYSICAL Patient Name: Colton Ronquillo : 1965 MR #: [id number] Admit Date: 03/10/2022 Physicians: Taty Neal MD (Family); No ref. provider found (Referring) Colton Ronquillo is a 56 y.o. male patient of Taty Neal MD with history of depression, hypertension, alcohol abuse presents to the hospital due to concern of suicidal ideation. While in the ER patient denies being actively suicidal but does state that he does not have will to live. Patient also wants help with alcohol detoxification and is being admitted to medical service with psych consulted for medicine consult. Acute alcohol abuse: Patient looked intoxicated when seen, per patient his last drink was last night. Alcohol level in the ER 62 Monitor closely for acute withdrawal CIWA protocol ordered Will start patient on Valium tapering dose. Continue thiamine Banana bag added. Suicidal ideation Psychiatry has been consulted from the ER. Depression Continue bupropion Peripheral neuropathy Continue gabapentin Admitted From: home Medication Reconciliation: Verified Code Status: Full Code Quality Measures DVT Prophylaxis: lovenox Abdul Catheter: absent Risk variables present on admission:Acidosis. Please see assessment and plan for further details. Chief Complaint alcohol abuse and suicidal ideation History of Present Illness Colton Ronquillo is a 56 y.o. male patient of Taty Neal MD with history of depression, hypertension, alcohol abuse presents to the hospital due to concern of suicidal ideation. While in the ER patient denies being actively suicidal but does state that he does not have will to live. Patient also wants help with alcohol detoxification and is being admitted to medical service with psych consulted for medicine consult. When seen patient denies any chest pain, does complain of having some nausea and vomiting. Denies any constipation or diarrhea. States that he is interested in alcohol detoxification and needs help. Denies smoking Past Medical History Past Medical History: Diagnosis Date Depression Hypertension 2017 Past Surgical History Past Surgical History: Procedure Laterality Date AMPUTATION FINGER(S) Left 12/16/2021 Procedure: D I P AMPUTATION LEFT MIDDLE FINGER, IRRIGATION AND DEBRIDEMENT; Surgeon: Michael Moffett MD; Location: Main OR; Service: Orthopedic CARPAL TUNNEL RELEASE HERNIA REPAIR INGUINAL OPEN Left ROTATOR CUFF REPAIR Family History Family History Problem Relation Age of Onset Heart disease Father Social History Social History Tobacco Use Smoking Status Never Smokeless Tobacco Never Social History Substance and Sexual Activity Alcohol Use Yes Alcohol/week: 12.0 standard drinks Types: 12 Cans of beer per week Comment: Drinks daily Social History Substance and Sexual Activity Drug Use No Allergy Information I have reviewed the patient's allergies. Patient has no known allergies. Home Medications Home medications were reviewed. Review Of Systems All systems have been reviewed and are negative except as noted in HPI or below Physical Examination BP (!) 153/119 Pulse 92 Temp 98.5 F (36.9 C) (Oral) Resp 16 SpO2 99% General Appearance: alert; acutely ill appearing; in no acute distress HEENT: Head- normocephalic; Eyes- EOMI, sclera anicteric; Ears- hearing intact; Nose- no nasal discharge; Throat- mucous membranes moist Cardiovascular: regular rate and rhythm; normal S1, S2; no murmurs, rubs, clicks or gallops; no peripheral edema Respiratory: lungs clear to auscultation; without wheezes, rales or rhonchi; on room air Abdomen: soft, non-tender, non-distended; positive bowel sounds Neurological: oriented x 3; normal speech; no focal findings or movement disorder noted Musculoskeletal: no significant deformity or tenderness to palpation Skin: normal coloration; no obvious rashes, lesions or skin breakdown Psych: normal mood and affect Laboratory and Additional Data Reviewed Laboratory 03/10/22 1:23 PM Microbiology 03/10/22 1:23 PM Radiology 03/10/22 1:23 PM Cardiology 03/10/22 1:23 PM Medications 03/10/22 1:23 PM [facility] [place] 03-10-2022 Consult note Associated Order (s): ED CONSULT TO 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 This proposal manager writer only diagnosed Depression. DIAGNOSIS/ACTIVE PROBLEM LIST Medical Problems Hospital Problem List Codes * (Principal) Alcohol withdrawal delirium, acute, hyperactive (HCC) ICD-10-CM: F10.231 ICD-9-CM: 291.0 Severe episode of recurrent major depressive disorder, without psychotic features (HCC) ICD-10-CM: F33.2 ICD-9-CM: 296.33 Non-Hospital Problem List Codes Carpal tunnel syndrome, bilateral ICD-10-CM: G56.03 ICD-9-CM: 354.0 Arthritis, wrist ICD-10-CM: M19.039 ICD-9-CM: 716.93 Laceration of left index finger with damage to nail ICD-10-CM: S61.311A ICD-9-CM: 883.0 Closed nondisplaced fracture of middle third of navicular bone of left wrist ICD-10-CM: S62.025A ICD-9-CM: 814.01 Traumatic amputation of left index finger ICD-10-CM: S68.111A ICD-9-CM: 886.0 CHIEF COMPLAINT/HISTORY OF PRESENT ILLNESS Chief Complaint/History Present Illness Chief Complaint: Dizzy, disoriented at work Current Symptoms: Depression, Anxiety, Substance abuse, Suicidal, Sleep disturbance Sleep Disturbance: Naps during the day (hypersomnia) Problems Related to: Economic, Health, Social environment History of Present Illness: Colton is a 56yo male who presents to the ED with complaints of alcohol withdrawal symptoms and suicidal ideation. He states that he was at work today and was dizzy and disoriented. Patient states he is a daily drinker of at least 12 x 12oz beers and last drinks was yesterday evening. He reports being a daily drinker for 35 years. He has had some recent health concerns and gives this as motivation to stop drinking. Patient endorses symptoms of depression including sadness, hopelessness, hypersomnia, fatigue/non-restorative sleep, anxiety, feelings of worthlessness (making statements to family that he isn't good to anyone anymore), and recurrent thoughts of . He denies any plan or intent for suicide but admits to a passive wish. His sister reports that patient was planning his eulogy last week and stated he didn't care if he crashed his motorcycle. Patient confirms these statements. He states he has no will to live. Patient's sister is in room for part of assessment and provides collateral. She does not feel comfortable with patient being discharged from the hospital due to imminent lethality concerns. She does have concern that he is suicidal based on his planning eulogy and statements about not caring if he dies. PAST PSYCHIATRIC HISTORY Past Psychiatric History Previous Psychiatric Diagnosis: Depression and Anxiety Previous Psychiatric Hospitalizations: None Current Psychiatric Medications: Wellbutrin XL 300mg ALCOHOL/DRUG ABUSE HISTORY Alcohol/Drug Abuse History Current Alcohol Use (Frequency): Frequent Amount of Alcohol Consumed: At least 12 x 12oz beers daily and sometimes also 24oz of [place] which is an 8% beer per patient Pattern of Alcohol Use: Daily Date Last Used: Yesterday evening Withdrawal Symptoms/History of Withdrawal: Pt denies Current Drug Use: No History/Current Alcohol/Drug Treatment: None MENTAL STATUS EVALUATION Mental Status Evaluation General Appearance: Equal to stated age Orientation: Oriented to person, place, and time Level of Consciousness: Alert Mood/Affect: Anxious Behavior: Cooperative, Appropriate to situation Remote Memory: WDL Language and Speech Content: Appropriate Preoccupations: (none) Impulse Control: Shows poor planning Insight: Awareness Judgment: Fair PATIENT STRENGTHS Patient Strengths Patient Strengths: Basic self-care skills, Vocationa/academic skills, Family/friends, Housing, Intellectual abilities, Insight, Interpersonal skills, Leisure skills RISK ASSESSMENT Risk Factors Recent Psychological Experiences: Recent negative physical changes Current Suicidal Ideation: Yes Describe Current Suicidal Ideation : Pt states he has no will to live. Sister reports patient has stated he doesn't care if he wrecks his motorcycle. Previous Suicidal Ideation: No Current Suicide Attempt: No Previous Suicide Attempt: No Current Self Harm Behavior: No Previous Self Harm Behavior: No Current Plans to Harm Another: No Previous Plans to Harm Another: No History of Attempts to Harm Another: No Access to Weapons: Yes Describe Access to Weapons: Pt states he has many guns Violent Episode: No Previous Violent Episode: No Family History of Suicide: No Family History of Mental Illness: No Family History of Substance Abuse: Yes Describe Family History of Substance Abuse Text: Brother with alcohol abuse Elopement: (Elopement precautions appropriate) Methods to Calm Down: No preference Restraint Risk Factors: (Unknown trauma history) PROTECTIVE FACTORS Protective Factors Family and Community Support (Connectedness): Yes Ongoing Medical and Mental Health Services (Community Support): No Skills In Problem Solving and Conflict Resolution (Coping Skills): Yes Cultural and Scientologist Beliefs: Yes Access to Weapons: Yes TREATMENT RECOMMENDATIONS AND CLINICAL SUMMARY Treatment Recommendations and Clinical Summary Current Recommendations: Medical admission RATIONALE/PLAN FOR TREATMENT: Patient is being medically admitted to treat alcohol withdrawal symptoms. Please consult inpatient behavioral health for ongoing BH management. [facility] [place] 03-10-2022 Note Formatting of this n ote might be different from the original. This [facility] member was bedside with pt. Pt stated he has been struggling with alcohol addiction for many years and has decided to stop drinking. Pt stated he was at work today and began to feel very sick and came to the Hospital. Pt stated he is ready to get help and detox safely. [facility] member provided pt with resources and will follow up with pt as needed. Associated attestation - Roxanna Nicolas RN - 03/15/2022 10:04 AM EDT Note reviewed by RN. [facility] [place] 03-10-2022 Note Associated Order(s): EKG 12-lead EKG 12-lead Date/Time: 03/10/2022 9:12 AM Performed by: Randy Beasley MD Authorized by: Randy Beasley MD Interpreted by ED attending physician Comparison: not compared with previous ECG Rhythm: sinus rhythm BPM: 80 Conduction: conduction normal ST Segments: ST segments normal T Peaked: V1 normal [place] interval normal QRS interval normal QT interval Clinical impression: non-specific ECG [facility] [place] 03-10-2022 Physician Emergency department Note ED Physician Note: NAME: Colton Ronquillo 56 y.o. CSN: [id number] PCP: Taty Neal MD ED Course / Medical Decision Making: Patient will be admitted. Patient is likely withdrawing from alcohol. He is a heavy drinker. His alcohol is tracely positive today for him. Patient been having tremors. Initial CIWA was 12. Suicidal thoughts. Seen by counselor. Recommends admission with psychiatric consultation. Remains on medical/psychiatric hold. Spoke with the medicine doctor on-call and will admit as patient needs telemetry for withdrawal. Patient is currently stable. Feels better on Valium. Patient has no other issues at this time blood work hua. CT head was normal for acute issues. Patient has been medically cleared for admission for the above. . Clinical Impression: 1. Alcohol withdrawal syndrome with complication (HCC) 2. Depression, unspecified depression type Disposition: Patient is being hospitalize to telemetry History: Chief Complaint: Alcohol Problem HPI: The history was obtained from the patient. He is a 56 y.o. male who presents with a chief complaint of Alcohol Problem. HPI patient presents for concerns of alcohol withdrawal. Patient is a daily drinker. He drinks about 12 beers daily for a long period of time. He has not drank over the past 24 hours. He states he had a headache for a few days. He states that this morning he felt confused/disoriented, felt like he was tremoring. He pulled over on the side the road once. He went to work and told his cousin and was sent here. Patient is also been having some suicidal thoughts but no attempt. PMHx: Past Medical History: Diagnosis Date Depression Hypertension 2017 PMSx: Past Surgical History: Procedure Laterality Date AMPUTATION FINGER(S) Left 12/16/2021 Procedure: D I P AMPUTATION LEFT MIDDLE FINGER, IRRIGATION AND DEBRIDEMENT; Surgeon: Michael Moffett MD; Location: Main OR; Service: Orthopedic CARPAL TUNNEL RELEASE HERNIA REPAIR INGUINAL OPEN Left ROTATOR CUFF REPAIR FAM. Hx: Family History Problem Relation Age of Onset Heart disease Father SOC. 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 meloxicam (MOBIC) 15 MG tablet TAKE 1 (ONE) TABLET (15 MG TOTAL) BY MOUTH DAILY . ALL: No Known Allergies ROS: Review of Systems Constitutional: Negative for chills and fever. HENT: Negative for congestion and rhinorrhea. Eyes: Negative for pain and redness. Respiratory: Negative for cough and shortness of breath. Cardiovascular: Negative for chest pain and palpitations. Gastrointestinal: Negative for abdominal pain, constipation, diarrhea, nausea and vomiting. Genitourinary: Negative for difficulty urinating. Musculoskeletal: Negative for back pain, neck pain and neck stiffness. Skin: Negative for rash. Neurological: Positive for tremors and headaches. Negative for dizziness, seizures, syncope, facial asymmetry, speech difficulty, weakness, light-headedness and numbness. Psychiatric/Behavioral: Positive for confusion and suicidal ideas. Negative for self-injury. All other systems reviewed and are negative. Positives and pertinent negatives as per HPI. All other systems were reviewed and are negative. Physical Exam: Patient Vitals for the past 24 hrs: BP Temp Temp src Pulse Resp SpO2 03/10/22 1400 134/84 -- -- 86 16 95 % 03/10/22 1135 (!) 153/119 -- -- -- -- -- 03/10/22 0910 (!) 170/100 98.5 F (36.9 C) Oral 92 16 99 % 03/10/22 0816 (!) 155/89 98.4 F (36.9 C) -- (!) 108 -- 100 % Physical Exam Vitals and nursing note reviewed. Constitutional: General: He is not in acute distress. Appearance: Normal appearance. He is well-developed. He is not ill-appearing, toxic-appearing or diaphoretic. HENT: Head: Normocephalic and atraumatic. Right Ear: External ear normal. Left Ear: External ear normal. Nose: Nose normal. Mouth/Throat: Pharynx: Oropharynx is clear. Eyes: Extraocular Movements: Extraocular movements intact. Conjunctiva/sclera: Conjunctivae normal. Right eye: Right conjunctiva is not injected. Left eye: Left conjunctiva is not injected. Pupils: Pupils are equal, round, and reactive to light. Cardiovascular: Rate and Rhythm: Normal rate and regular rhythm. Pulses: Dorsalis pedis pulses are 2+ on the right side and 2+ on the left side. Heart sounds: Normal heart sounds. No murmur heard. No friction rub. No gallop. Comments: Feet are pink and warm with brisk cap refill Pulmonary: Effort: Pulmonary effort is normal. No respiratory distress. Breath sounds: Normal breath sounds. No decreased breath sounds, wheezing, rhonchi or rales. Abdominal: Palpations: Abdomen is not rigid. There is no pulsatile mass. Tenderness: There is no abdominal tenderness. There is no guarding or rebound. Negative signs include Cruz's sign. Musculoskeletal: Cervical back: Normal range of motion and neck supple. Comments: No calf pain, redness, asymmetry or abnormal leg swelling. No palpable cords. Negative Homans sign. No signs of DVT. Skin: General: Skin is warm. Coloration: Skin is not pale. Neurological: General: No focal deficit present. Mental Status: He is alert and oriented to person, place, and time. Cranial Nerves: Cranial nerves 2-12 are intact. Sensory: Sensation is intact. No sensory deficit. Motor: Tremor present. Coordination: Coordination is intact. Comments: Intentional tremor Laboratory & Radiological Imaging (if done): Labs Reviewed ALCOHOL, MEDICAL - Abnormal; Notable for the following components: Result Value Alcohol (Medical) 62.10 (*) All other components within normal limits CHEM 7 - Abnormal; Notable for the following components: Bicarbonate 20 (*) BUN 4 (*) BUN/Creatinine Ratio 5.6 (*) All other components within normal limits Narrative: [facility] has implemented the eGFR calculation approach that does not have a coefficient for race that conforms to the NKF-ASN Task Force Recommendations. URINALYSIS - Abnormal; Notable for the following components: Ketones, Urine Trace (*) All other components within normal limits Narrative: Microscopic examination is performed on all urinalysis samples and only positive findings are reported. The test for blood on the chemical analytic portion of urinalysis may also be positive due to hemoglobinuria and myoglobinuria and if red blood cells are present they are quantified by microscopic examination. CBC WITH AUTO DIFFERENTIAL - Abnormal; Notable for the following components: RBC 4.26 (*) Hematocrit 40.7 (*) MCH 34.3 (*) MPV 8.7 (*) All other components within normal limits COVID-19, MOLECULAR - Normal Narrative: This test was performed under the FDA's Emergency Use Authorization (EUA). Testing was performed using the Rickey Kenzie SARS-CoV-2 RT-PCR & Influenza A/B Nucleic Acid Test on the Kenzie Ariella System. This test has not been approved for use in asymptomatic patients and its performance in this patient population has not been evaluated. Negative results do not rule out the presence of SARS-CoV-2, influenza A, and/or influenza B. Fact sheets for the EUA can be found at the following links: For Healthcare Providers: https://www.fda.gov/media/194149/downl oad For Patients: https://www.fda.gov/media/202690/downl oad HEPATIC FUNCTION PANEL - Normal DRUGS OF ABUSE SCREEN, URINE - Normal Narrative: Screen results should be used for treatment purposes only. CBC AND DIFFERENTIAL Narrative: The following orders were created for panel order CBC w/ Diff. Procedure Abnormality Status --------- ------ CBC Auto Differential[[id number]] Abnormal Final result Please view results for these tests on the individual orders. CT Head Or Brain Without Contrast Final Result No acute noncontrast CT brain abnormality. Mild cortical atrophic changes are noted. [facility]/ Workstation ID: [id number] Procedures: Procedures Randy Beasley MD ED Physician Emergency Department (Please note that portions of this note have been completed with a voice recognition software. Efforts were made to correct any errors, but occasionally words are mis-transcribed.) Randy Beasley MD 03/10/22 1631 Txt4 Work Phone: 03-10-2022 Emergency department Note ED Physician Note: NAME: Colton Ronquillo 56 y.o. CSN: [id number] PCP: Taty Neal MD ED Course / Medical Decision Making: Patient will be admitted. Patient is likely withdrawing from alcohol. He is a heavy drinker. His alcohol is tracely positive today for him. Patient been having tremors. Initial CIWA was 12. Suicidal thoughts. Seen by counselor. Recommends admission with psychiatric consultation. Remains on medical/psychiatric hold. Spoke with the medicine doctor on-call and will admit as patient needs telemetry for withdrawal. Patient is currently stable. Feels better on Valium. Patient has no other issues at this time blood work hua. CT head was normal for acute issues. Patient has been medically cleared for admission for the above. . Clinical Impression: 1. Alcohol withdrawal syndrome with complication (HCC) 2. Depression, unspecified depression type Disposition: Patient is being hospitalize to telemetry History: Chief Complaint: Alcohol Problem HPI: The history was obtained from the patient. He is a 56 y.o. male who presents with a chief complaint of Alcohol Problem. HPI patient presents for concerns of alcohol withdrawal. Patient is a daily drinker. He drinks about 12 beers daily for a long period of time. He has not drank over the past 24 hours. He states he had a headache for a few days. He states that this morning he felt confused/disoriented, felt like he was tremoring. He pulled over on the side the road once. He went to work and told his cousin and was sent here. Patient is also been having some suicidal thoughts but no attempt. PMHx: Past Medical History: Diagnosis Date Depression Hypertension 2017 PMSx: Past Surgical History: Procedure Laterality Date AMPUTATION FINGER(S) Left 12/16/2021 Procedure: D I P AMPUTATION LEFT MIDDLE FINGER, IRRIGATION AND DEBRIDEMENT; Surgeon: Michael Moffett MD; Location: [facility] [place]; Service: Orthopedic CARPAL TUNNEL RELEASE HERNIA REPAIR INGUINAL OPEN Left ROTATOR CUFF REPAIR FAM. Hx: Family History Problem Relation Age of Onset Heart disease Father SOC. 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 meloxicam (MOBIC) 15 MG tablet TAKE 1 (ONE) TABLET (15 MG TOTAL) BY MOUTH DAILY . ALL: No Known Allergies ROS: Review of Systems Constitutional: Negative for chills and fever. HENT: Negative for congestion and rhinorrhea. Eyes: Negative for pain and redness. Respiratory: Negative for cough and shortness of breath. Cardiovascular: Negative for chest pain and palpitations. Gastrointestinal: Negative for abdominal pain, constipation, diarrhea, nausea and vomiting. Genitourinary: Negative for difficulty urinating. Musculoskeletal: Negative for back pain, neck pain and neck stiffness. Skin: Negative for rash. Neurological: Positive for tremors and headaches. Negative for dizziness, seizures, syncope, facial asymmetry, speech difficulty, weakness, light-headedness and numbness. Psychiatric/Behavioral: Positive for confusion and suicidal ideas. Negative for self-injury. All other systems reviewed and are negative. Positives and pertinent negatives as per HPI. All other systems were reviewed and are negative. Physical Exam: Patient Vitals for the past 24 hrs: BP Temp Temp src Pulse Resp SpO2 03/10/22 1400 134/84 -- -- 86 16 95 % 03/10/22 1135 (!) 153/119 -- -- -- -- -- 03/10/22 0910 (!) 170/100 98.5 F (36.9 C) Oral 92 16 99 % 03/10/22 0816 (!) 155/89 98.4 F (36.9 C) -- (!) 108 -- 100 % Physical Exam Vitals and nursing note reviewed. Constitutional: General: He is not in acute distress. Appearance: Normal appearance. He is well-developed. He is not ill-appearing, toxic-appearing or diaphoretic. HENT: Head: Normocephalic and atraumatic. Right Ear: External ear normal. Left Ear: External ear normal. Nose: Nose normal. Mouth/Throat: Pharynx: Oropharynx is clear. Eyes: Extraocular Movements: Extraocular movements intact. Conjunctiva/sclera: Conjunctivae normal. Right eye: Right conjunctiva is not injected. Left eye: Left conjunctiva is not injected. Pupils: Pupils are equal, round, and reactive to light. Cardiovascular: Rate and Rhythm: Normal rate and regular rhythm. Pulses: Dorsalis pedis pulses are 2+ on the right side and 2+ on the left side. Heart sounds: Normal heart sounds. No murmur heard. No friction rub. No gallop. Comments: Feet are pink and warm with brisk cap refill Pulmonary: Effort: Pulmonary effort is normal. No respiratory distress. Breath sounds: Normal breath sounds. No decreased breath sounds, wheezing, rhonchi or rales. Abdominal: Palpations: Abdomen is not rigid. There is no pulsatile mass. Tenderness: There is no abdominal tenderness. There is no guarding or rebound. Negative signs include Cruz's sign. Musculoskeletal: Cervical back: Normal range of motion and neck supple. Comments: No calf pain, redness, asymmetry or abnormal leg swelling. No palpable cords. Negative Homans sign. No signs of DVT. Skin: General: Skin is warm. Coloration: Skin is not pale. Neurological: General: No focal deficit present. Mental Status: He is alert and oriented to person, place, and time. Cranial Nerves: Cranial nerves 2-12 are intact. Sensory: Sensation is intact. No sensory deficit. Motor: Tremor present. Coordination: Coordination is intact. Comments: Intentional tremor Laboratory & Radiological Imaging (if done): Labs Reviewed ALCOHOL, MEDICAL - Abnormal; Notable for the following components: Result Value Alcohol (Medical) 62.10 (*) All other components within normal limits CHEM 7 - Abnormal; Notable for the following components: Bicarbonate 20 (*) BUN 4 (*) BUN/Creatinine Ratio 5.6 (*) All other components within normal limits Narrative: [facility] [place] [facility] has implemented the eGFR calculation approach that does not have a coefficient for race that conforms to the NKF-ASN Task Force Recommendations. URINALYSIS - Abnormal; Notable for the following components: Ketones, Urine Trace (*) All other components within normal limits Narrative: Microscopic examination is performed on all urinalysis samples and only positive findings are reported. The test for blood on the chemical analytic portion of urinalysis may also be positive due to hemoglobinuria and myoglobinuria and if red blood cells are present they are quantified by microscopic examination. CBC WITH AUTO DIFFERENTIAL - Abnormal; Notable for the following components: RBC 4.26 (*) Hematocrit 40.7 (*) MCH 34.3 (*) MPV 8.7 (*) All other components within normal limits COVID-19, MOLECULAR - Normal Narrative: This test was performed under the FDA's Emergency Use Authorization (EUA). Testing was performed using the Rickey Kenzie SARS-CoV-2 RT-PCR & Influenza A/B Nucleic Acid Test on the Kenzie Ariella System. This test has not been approved for use in asymptomatic patients and its performance in this patient population has not been evaluated. Negative results do not rule out the presence of SARS-CoV-2, influenza A, and/or influenza B. Fact sheets for the EUA can be found at the following links: For Healthcare Providers: https://www.fda.gov/media/484392/downl oad For Patients: https://www.fda.gov/media/033501/downl oad HEPATIC FUNCTION PANEL - Normal DRUGS OF ABUSE SCREEN, URINE - Normal Narrative: Screen results should be used for treatment purposes only. CBC AND DIFFERENTIAL Narrative: The following orders were created for panel order CBC w/ Diff. Procedure Abnormality Status --------- ------ CBC Auto Differential[[id number]] Abnormal Final result Please view results for these tests on the individual orders. CT Head Or Brain Without Contrast Final Result No acute noncontrast CT brain abnormality. Mild cortical atrophic changes are noted. [facility]/ Workstation ID: [id number] Procedures: Procedures Randy Beasley MD ED Physician Emergency Department (Please note that portions of this note have been completed with a voice recognition software. Efforts were made to correct any errors, but occasionally words are mis-transcribed.) Randy Beasley MD 03/10/22 1631 Pt states that he decided to quit drinking yesterday, last drink yesterday at afternoon. Presents to ED with tremors. Admits to suicidal thoughts , denies plan. States that he has never quit drinking before. Admits to drinking 12+ drinks per day. Bed: 23 Expected date: Expected time: Means of arrival: Comments: Second documented in this encounter [facility] 03-10-2022 Emergency department Triage note Pt states that he decided to quit drinking yesterday, last drink yesterday at afternoon. Presents to ED with tremors. Admits to suicidal thoughts , denies plan. States that he has never quit drinking before. Admits to drinking 12+ drinks per day. [facility] 03-10-2022 Emergency department Note Bed: 23 Expected date: Expected time: Means of arrival: Comments: Second [facility] 01-07-2022 History of Present illness Narrative HISTORY OF PRESENT ILLNESS Mr. Ronquillo is now 2 weeks status post traumatic middle finger distal phalanx amputation. He is doing fine. No complications. He is keeping the area clean and dry, is having no significant discomfort. PHYSICAL EXAM General: He is awake, alert, in no apparent distress. Extremities: Distal finger stitches removed without complication. Good hemostasis. No significant warmth. 2+ radial pulse. 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 ASSESSMENT/PLAN 2 weeks status post distal traumatic amputation of the middle finger. At this point, he is going to continue to keep the area clean and protected. Will follow up with Dr. Moffett in 4 weeks. documented in this encounter [facility] 12-14-2021 History of Present illness Narrative Subjective: Colton Ronquillo is a 56 y.o. male here for Trauma and Pain of the Left Middle Finger . Rich is a right hand dominant male whom was injured Tuesday afternoon while using a table saw.He was using a push board but it slipped and injured his left hand.He was taken to the ER. He did not have a lot of pain at time of injury because he has chronic numbness and injury to his left wrist. Dr. Moffett was consulted in the Er, and advised antibiotics, dressing and follow up for surgical management this week. Xrays were done in ER. A betadine irrigation was done to wound. Patient was given Ancef and a tetanus shot. He has confirmed fracture of left middle finger.Traumatic amputation just distal of DIP joint middle finger. Lacerations also to index and ring fingertips. Dressing is intact today.pain level today is 8/10 and he feels throbbing. Advised elevation.He is taking his oral antibiotics as well. OARRS check was done . He is not currently taking any pain meds. He wasn't given any in the ER because of his blood alcohol level. I will provide him some norco today to use sparingly and without alcohol . The following portions of the patient's history were reviewed and updated as appropriate: allergies, current medications, past surgical history and problem list. Review of Systems Constitutional: Negative for chills, diaphoresis and fever. Respiratory: Negative for shortness of breath. Cardiovascular: Negative for chest pain, palpitations and leg swelling. Genitourinary: Negative for frequency and urgency. Musculoskeletal: Positive for arthralgias and myalgias. Skin: Negative for color change, rash and wound. Neurological: Positive for numbness. Negative for dizziness, syncope and weakness. Psychiatric/Behavioral: Negative for agitation. The patient is not nervous/anxious. Objective: BP 133/86 Pulse 93 Ht 5' 11 Wt 81.6 kg (180 lb) BMI 25.10 kg/m Physical Exam Constitutional: Appearance: He is well-developed. HENT: Head: Normocephalic and atraumatic. Eyes: Pupils: Pupils are equal, round, and reactive to light. Cardiovascular: Rate and Rhythm: Normal rate and regular rhythm. Pulmonary: Effort: Pulmonary effort is normal. Breath sounds: Normal breath sounds. Abdominal: General: Bowel sounds are normal. Palpations: Abdomen is soft. Musculoskeletal: General: Swelling, tenderness, deformity and signs of injury present. Cervical back: Normal range of motion and neck supple. Skin: General: Skin is warm and dry. Neurological: Mental Status: He is alert and oriented to person, place, and time. Deep Tendon Reflexes: Reflexes are normal and symmetric. Imaging from ER visit: XR Hand Left 3+ Views (Standard) Result Date: 12/12/2021 EXAMINATION: LEFT HAND: 12/12/2021. HISTORY: Injury/Trauma or Illness?:Injury/Trauma How long have you had these symptoms (acute/chronic)?:Acute attention amputated finger injury COMPARISON FILMS: None. FINDINGS: Three views are provided which demonstrate there is fracture amputation of the distal phalanx of 3rd digit as well as there is some laceration of the soft tissue along the tuft of the distal phalanx of 2nd digit. There are no other fractures or dislocations. There are significant degenerative changes at the level of the wrist joint with significant joint space narrowing involving the radiocarpal, carpal carpal, carpometacarpal joints with cystic-appearing lucencies involving the distal radius, capitate, scaphoid. No abnormal calcifications or radiopaque foreign bodies. 1. Fracture amputation of the distal phalanx of 3rd digit. 2. There is some laceration/amputation of the soft tissue along the tuft of the distal phalanx of 2nd digit without fractures. 3. Significant degenerative changes at the level of wrist joint which seem to have progressed since the previous left wrist study of 11/13/2018. [facility] Workstation ID: [id number] Assessment/Plan: Spoke to Dr. Moffett today. I will work him up for him for surgery on Tuesday . Explained risks and benefits of surgery with patient and he is agreeable to proceed. [facility] will call patient tomorrow with times and instructions. Consent to be obtained by Dr. Moffett prior to surgery. I have discussed the risks and benefits, including the risks of addiction and overdose associated with a controlled substance containing an opioid, with the minor patient and the patient s parent, guardian or authorized adult. 1. Traumatic amputation of left middle finger 2. Laceration of left index finger with damage to nail, foreign body presence unspecified, subsequent encounter Return for [address] Moffett. Surekha Larios CNP 12/14/2021 documented in this encounter [facility] Diagnosis Traumatic amputation of left middle finger- Primary Laceration of left index finger with damage to nail, foreign body presence unspecified, subsequent encounter [facility] Diagnosis Traumatic amputation of left middle finger- Primary [facility] Diagnosis Traumatic amputation of left middle finger- Primary [facility] Diagnosis Traumatic amputation of left middle finger- Primary [facility] Diagnosis Alcohol withdrawal delirium, acute, hyperactive (HCC)- Primary Alcohol withdrawal syndrome with complication (HCC) Depression, unspecified depression type Severe episode of recurrent major depressive disorder, without psychotic features (HCC) [facility] Diagnosis Impingement syndrome of both shoulders- Primary [facility] Diagnosis Post-traumatic osteoarthritis of both shoulders- Primary [facility] Diagnosis Primary osteoarthritis of left shoulder- Primary [facility] Diagnosis Primary osteoarthritis of left shoulder- Primary Severe muscle deconditioning Post-traumatic osteoarthritis of left shoulder documented in this encounter [facility] Assessments Diagnosis Carpal tunnel syndrome, bila teral - Primary Carpal tunnel syndrome Diagnosis Bilateral carpal tunnel synd dimitry - Primary Carpal tunnel syndrome Diagnosis Bilateral carpal tunnel synd dimitry Carpal tunnel syndrome Diagnosis Bilateral carpal tunnel synd dimitry - Primary Carpal tunnel syndrome Diagnosis Arthritis, wrist- Primary Diagnosis Closed nondisplaced fracture of middle third of scaphoid bone of left wrist, initial encounter- Primary Diagnosis Closed displaced fracture of scaphoid of left wrist, unspecified portion of scaphoid, initial encounter Summary Purpose Family History No Family History Records FoundNo Family History Records FoundNo Family History Records FoundNo Family History Records FoundNo Family History Records Found Advance Directives No Advanced Directives Records FoundDocuments on File Type Date Recorded Patient Coding Specialist Home Health Expl anation Advance Directives and Livin g Will 12/18/2018 9:15 AM Documents on File Type Date Recorded Patient Coding Specialist Home Health Expl anation Advance Directives and Livin g Will 11/13/2018 8:28 AM Latest Code Status on File Date Activated Date Inactivated Comments 03/20/2022 12:01 AM Full Code Date Activated Date Inactivated Comments 03/10/2022 12:27 PM 03/19/2022 11:53 PM Latest Code Status on File Date Activated Date Inactivated Comments 03/29/2022 11:52 AM 03/30/2022 12:28 PM Full Code Date Activated Date Inactivated Comments 03/20/2022 12:01 AM 03/29/2022 10:06 AM Latest Code Status on File Date Activated Date Inactivated Comments 03/29/2022 11:52 AM 03/30/2022 12:28 PM Full Code Date Activated Date Inactivated Comments 03/20/2022 12:01 AM 03/29/2022 10:06 AM Full Code Date Activated Date Inactivated Comments 03/10/2022 12:27 PM 03/19/2022 11:53 PM Latest Code Status on File Code Status Date Activated Date Inactivated Comments Full Code 03/29/2022 11:52 AM 03/30/2022 12:28 PM Code Status History Code Status Date Activated Date Inactivated Comments Full Code 03/20/2022 12:01 AM 03/29/2022 10:06 AM Full Code 03/10/2022 12:27 PM 03/19/2022 11:53 PM Latest Code Status on File Code Status Date Activated Date Inactivated Comments Full Code 03/29/2022 11:52 AM 03/30/2022 12:28 PM Code Status History Code Status Date Activated Date Inactivated Comments Full Code 03/20/2022 12:01 AM 03/29/2022 10:06 AM Full Code 03/10/2022 12:27 PM 03/19/2022 11:53 PM History of Present Illness * Verónica Tong MD - 12/20/2018 2:57 PM EDT [facility] [address] (11) [facility] [address] [facility] [id number] Colton Ronquillo is a 53 y.o. male being seen today, 12/20/18, Chief Complaint Patient presents with Left Wrist - Fracture, Follow-up Follow-up MRI REVIEW [chief complaint] left wrist pain HPI Dictation: [hpi] patient returns status post MRI which shows degenerative changes involving the radial scaphoid and multiple carpal joints no evidence of an acute fracture of the scaphoid Physical Exam Dictation: [PE] strict range of motion of the wrist with diffuse discomfort no localized point tenderness Assessment and Plan Dictation: [AP] plan NSAIDs can use wrist as pain allows his only surgical option my opinion be a wrist arthrodesis he will think it over when he wants to consider that option will refer him to a hand surgeon I have reviewed all relevant histories, medications, allergies, and problem list items with Lety Ronquillo during this visit. Review of Systems Constitutional: Negative for chills and fever. HENT: Negative for congestion. Respiratory: Negative for shortness of breath. Cardiovascular: Negative for chest pain. Gastrointestinal: Negative for diarrhea, nausea and vomiting. Neurological: Negative for headaches. Psychiatric/Behavioral: Negative for behavioral problems. BP (!) 146/101 Pulse 92 Ht 5' 11 Wt 81.6 kg (180 lb) BMI 25.10 kg/m Imaging: Mr Wrist Left Without Contrast Result Date: 12/18/2018 EXAMINATION: MR WRIST LEFT WITHOUT CONTRAST HISTORY: ORDERING SYSTEM PROVIDED HISTORY: Closed nondisplaced fracture of middle third of scaphoid bone of left wrist, initial encounter. History of remote trauma at age 17 playing basketball with multiple fractures at that time treated with a cast. TECHNOLOGIST PROVIDED HISTORY: Injury/Trauma Reason for exam: S62.025A (ICD-10-CM) - Closed nondisplacedfracture of middle third of scaphoid bone of left wrist, initial encounter Encounter Type: Initial Mechanism of injury: fall while using a jackhammer ORDERING SYSTEM PROVIDED DIAGNOSIS CODES: S62.025A Closed nondisplaced fracture of middle third of scaphoid bone of left wrist, initial encounter COMPARISON: Right wrist x-rays from 11/13/2018. TECHNIQUE: Sagittal fat saturated proton density and coronal T1, gradient echo and STIR images were obtained along with axial T2 and fat saturated proton density images without contrast. 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 There is cystic change and marrow edema in the distal radius and scaphoid, as well as irregularity of the lateral cortex of the mid scaphoid. There is also moderate degenerative change of the radiolunate jointand ecjhoirz-zi-jckwhx degenerative change involving the articulation between the lunate and capitate with articular cartilage loss, joint space narrowing and subarticular cystic change. There is also moderate degenerative change of the triscaphe joint and xnwrasta-yt-zbskvh degenerative change of the 1st carpometacarpal joint. No fluid is evident in the distal radioulnar joint. There is intrasubstance degeneration involving the triangular fibrocartilage without a well-defined tear. There irregularity of the scapholunate ligament with some increased signal along the radial margin of the scapholunate interval suggesting an at least partial-thickness tear of the scapholunate ligament. The luno triquetral ligament appears intact. Ulhsv-pt-gukfgqsy joint effusions involve the midcarpal joint and radiocarpal joint with synovial thickening and mild synovitis. No definite acute fracture is identified. The abnormality in the scaphoid on the comparison x-rays is likely related to the reactive cystic change and degenerative change involving the radioscaphoid joint. Flexor and extensor tendons of the wrist appear intact with no focal tendon tear. A small amount of fluid tracks along the extensor digitorum tendons and extensor carpi ulnaris suggesting mild tenosynovitis. The median nerve andulnar nerve demonstrate a normal course. There is no cystic or solid mass in the region of the carpal tunnel. There is moderate degenerative change of the pisotriquetral joint with a small ossific body in the pisotriquetral recess measuring 5 x 3 x 3 mm. 1. There is severe degenerative change of the radioscaphoid joint with complete loss of the joint space and vnxk-qs-dcum contact, as well as marrow edema and cystic change in the distal radius and scaphoid. There is irregularity of the lateral cortex of the mid scaphoid with the abnormality on the prior x-rays likely related to the degenerative change or more remote trauma. 2. There is cmvbgbok-tr-oziatp degenerative change of the articulation between the lunate and capitate, as well as moderate degenerative change of the radiolunate joint. There is also moderate degenerative change of the triscaphe joint and vzhemioy-ga-kjyiot degenerative change of the 1st carpometacarpal joint. 3. No definite acute fracture. Marrow edema in the carpal bones is likely reactive in etiology. 4. Bedrv-jq-qebkwxcy joint effusions involve the midcarpal joint space and radiocarpal joint with mild synovial thickening and synovitis. 5. There is a small ossific body in the pisotriquetral recess measuring 5 x3 x 3 mm. 6. A small amount of fluid tracks along the extensor digitorum tendons and extensor carpiulnaris suggesting mild tenosynovitis. No focal tendon tear is identified. [facility] [employer] Workstation ID: [id number] SNOMED CT(R) 1. Arthritis, wrist ARTHRITIS OF WRIST Return if symptoms worsen or fail to improve. Verónica Tong MD documented in this encounter* Verónica Tong MD - 11/24/2018 9:58 AM EDT [facility] [address] (11) [facility] [address] [facility] [id number] Colton Ronquillo is a 53 y.o. 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17 will playing baseball told her his multiple fractures which was treated in a cast there is no surgery at that time Physical Exam Dictation: [PE] is already in a thumb spica cast with complaint of pain over the dorsum and radial aspect of his wrist with x-rays showing significant radial scaphoid arthritis there is a fairly clean line through the midportion of the scapula which might indicate a acute fracture on top of his chronic care wrist arthritis as there is no significant resorption along the apparent fracture line Assessment and Plan Dictation: [AP] 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 Review of Systems Constitutional: Negative for chills and fever. HENT: Negative for congestion. Respiratory: Negative for shortness of breath. Cardiovascular: Negative for chest pain. Gastrointestinal: Negative for diarrhea, nausea and vomiting. Neurological: Negative for headaches. Psychiatric/Behavioral: Negative for behavioral problems. BP (!) 149/89 Pulse 91 Ht 5' 11 Wt 81.6 kg (180 lb) BMI 25.10 kg/m Imaging: No results found. SNOMED CT(R) 1. Closed nondisplaced fracture of middle third of scaphoid bone of left wrist, initial encounter CLOSED FRACTURE OF SCAPHOID BONE OF WRIST MR Wrist Left Without Contrast Return for post mri. Verónica Tong MD documented in this encounter Reason for Referral Status Reason Specialty Diagnoses / Procedures Referred By Contact Referred To Contact Pending Review Radiology Diagnoses Closed nondisplaced fracture of middle third of scaphoid bone of left wrist, initial encounter Procedures MR Wrist Left Without Contrast Verónica Tong MD [address] [place] [id number] Specialty Diagnoses / Procedures Referred By Contact Referred To Contact Physical Therapy / Rehabilitation Diagnoses Post-traumatic osteoarthritis of both shoulders Surekha Lariosy, [employer] [address] [place] [address] [address] Referral ID Status Reason Start Date Expiration Date Visits Requested Visits Authorized [id number] Authorized Specialty Services Required/Pat ient's Best Interest 05/04/2022 05/04/2023 1 1 Specialty Diagnoses / Procedures Referred By Contact Referred To Contact Physical Therapy / Rehabilitation Diagnoses Primary osteoarthritis of left shoulder Surekha Larios Berenice, [employer] [address] [place] [address] [address] Referral ID Status Reason Start Date Expiration Date Visits Requested Visits Authorized [id number] Authorized Specialty Services Required/Pat ient's Best Interest 12/01/2022 12/01/2023 1 1 Hospital Course Note Send Summary: Discharge Summ beulah Providers: Provider RoleProvider Name Earnest Gerber Hafiz ConsultingGiovani larsen David Note Recipients: Taty Neal MD - [id number] [] Discharge: Summary: Admission Date: .17-Sep-2020 16:07:00 Discharge Date: 20-Sep-2020 Attending Physician at Discharge: Meggan Meehan Admission Reason: Cellulitis Final Discharge Diagnoses: Cellulitis hyponatremia Procedures: none Condition at Discharge: Satisfactory Disposition at Discharge: .Home Vital Signs: T PRBPSpO2 [id number]/9597% Date/Time09/20 7: 7: 7: 7: 7:30 Range(36.6C - 36.7C ) (68 - 76 ) (14 - 20 ) (129 - 153 )/ (75 - 95 ) (97% - 99% ) Date: Weight/Scale Type:Height: 17-Sep-2020 23:5881.2 kg / mwa414.8 cm Physical Exam: Constitutional: awake/alert/oriented x3, not in acute distress, Eyes: PERRL, EOMI, clear sclera ENMT: normal hearing, mucous membranes moist, no pharyngeal erythema or exudates Head/Neck: neck supple, no apparent i (more content not included)... Additional Source Comments (unrecognized sect ion and content) No Status Records FoundNo Status Records FoundNo Status Records FoundNo Status Records FoundNo Status Records Found INFORMATION SOURCE (unrecogn ized section and content) DATE CREATED AUTHOR AUTHOR'S ORGANIZ ATION 09/29/2020 [facility] DATE CREATED AUTHOR AUTHOR'S ORGANIZ ATION 03/30/2022 [facility] DATE CREATED AUTHOR AUTHOR'S ORGANIZ ATION 04/06/2022 [facility] DATE CREATED AUTHOR AUTHOR'S ORGANIZ ATION 12/11/2022 [facility] Reason for Visit (unrecogniz ed section and content) Reason Comments Pain 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 LEFT WRIST PAIN B WC Pain Reason Comments Medication Refill Reason Comments Trauma Pain Reason Comments Follow-up Suture / Staple Removal Wound Check Reason Comments Follow-up Reason Comments Alcohol Problem Specialty Diagnoses / Procedures Referred By Contac t Referred To Contact Diagnoses Alcohol withdrawal syndrome with complication (HCC) Alcohol withdrawal delirium, acute, hyperactive (HCC) Depression, unspecified depression type Referral ID Status Reason Start Date Expiration Date Visits Re quested Visits Authorized [id number] 1 1 Reason Comments Injections B/L SHOULDER INJ Reason Onset Date Comments ED Follow-up 05/20/2022 [facility] member spoke with pt. Pt is in Recovery program in [place] Reason Comments Pain Care Teams (unrecognized sec tion and content) Resistor Coater Relationship Specialty Start Date End Date Taty Neal MD PCP - General Family Medicine 07/20/17 Resistor Coater Relationship Specialty Start Date End Date Taty Neal MD [address] [place] [address] PCP - General Family Medicine 12/12/21 Resistor Coater Relationship Specialty Start Date End Date Taty Neal MD [address] [place] [address] PCP - General Family Medicine 12/12/21 Resistor Coater Relationship Specialty Start Date End Date Taty Neal MD [address] [place] [address] PCP - General Family Medicine 12/12/21 Resistor Coater Relationship Specialty Start Date End Date Taty Neal MD [address] [place] [address] PCP - General Family Medicine 12/12/21 Resistor Coater Relationship Specialty Start Date End Date Taty Neal MD [address] [place] [address] PCP - General Family Medicine 12/12/21 Seymour Luke MD [address] [facility] [address] [place] [id number] Consulting Physician Addiction Medicine 03/10/22 Resistor Coater Relationship Specialty Start Date End Date Taty Neal MD [address] [place] [address] PCP - General Family Medicine 12/12/21 Seymour Luke MD [address] [facility] [address] [place] [id number] Consulting Physician Addiction Medicine 03/10/22 Resistor Coater Relationship Specialty Start Date End Date Taty Neal MD [address] [place] [address] PCP - General Family Medicine 12/12/21 Seymour Luke MD [address] [facility] [address] [place] [id number] Consulting Physician Addiction Medicine 03/10/22 Resistor Coater Relationship Specialty Start Date End Date Taty Neal MD [address] [place] [address] PCP - General Family Medicine 12/12/21 Seymour Luke MD [address] [address] [place] [id number] Consulting Physician Addiction Medicine 03/10/22 Resistor Coater Relationship Specialty Start Date End Date Taty Neal MD [address] [place] [address] PCP - General Family Medicine 12/12/21 Seymour Luke MD [address] [place] [phone] Consulting Physician Addiction Medicine 03/10/22 Resistor Coater Relationship Specialty Start Date End Date Taty Neal MD [address] [place] [address] PCP - General Family Medicine 12/12/21 Seymour Luke MD [address] [place] [id number] Consulting Physician Addiction Medicine 03/10/22 Scheduled Active and Recently Administ ered Medications (unrecognized section and content) PRN Medication Order 03/17/2022 03/18/2022 03/19/2022 acetaminophen (TYLENOL) tablet 650 mg 650 mg, Oral, Every 4 hours PRN, mild pain, fever 100.4 F or greater, headaches, Starting on Tue03/10/22 at 1353 1411 (Given - Provider: Siena Negro, MARISELA) 1540 (Given - Provider: Lyla Caraballo RN) aluminum-magnesium hydroxide-simethicone (MAALOX PLUS) 200-200-20 mg/5 mL suspension 30 mL 30 mL, Oral, Every 4 hours PRN, indigestion, Starting on Tue03/10/22 at 1353 hydrOXYzine (ATARAX) tablet 50 mg 50 mg, Oral, Every 6 hours PRN, anxiety, Starting on Tue03/10/22 at 1543 magnesium hydroxide (MOM) 400 mg/5 mL suspension 2,400 mg 2,400 mg (30 mL), Oral, Daily PRN, constipation, Starting on Tue03/10/22 at 1353, If no bowel movement in 24 hours after Sennosides (SENNA) administration. naloxone (NARCAN) injection 0.1 mg(Linked Group 2) 0.1 mg, Intravenous, As needed, opioid reversal, For respiratory rate less than or equal to 8 per minute., Starting on Tue03/17/22 at 1029, Mix nalOXone (NARCAN) 0.4 mg (1mL) with 9 mL of Normal Saline to total 10 mL. Administer 0.1 mg (2.5mL) IV Push every 2 minutes until respiratory rate is 10 or greater. naloxone (NARCAN) injection 0.4 mg(Linked Group 2) 0.4 mg, Intravenous, As needed, opioid reversal, patient is pulseless, breathless, and unresponsive, Starting on Tue03/17/22 at 1029, Call a code first, then administer naloxone dose undiluted IV Push over 30 seconds. nitroGLYCERIN (NITROSTAT) SL tablet 0.4 mg 0.4 mg, Sublingual, Every 5 min PRN, chest pain, Starting on Tue03/10/22 at 1353, For chest pain. May give up to 3 doses. Call physician for chest pain unrelieved by Nitroglycerin, or recurrent chest pain. DO NOT CRUSH OR CHEW. ondansetron (ZOFRAN) injection 4 mg 4 mg, Intravenous, Every 6 hours PRN, nausea, vomiting, Starting on Tue03/10/22 at 1353 oxyCODONE-acetaminophen (PERCOCET) 5-325 mg per tablet 1 tablet (CANCELED) 1 tablet, Oral, Every 6 hours PRN, moderate to severe pain, Starting on Tue03/17/22 at 1029 1112 (Given - Provider: Siena Negro RN)2028 (Given - Provider: Elal Carlson RN) 0301 (Given - Provider: Ella Carlson RN) senna (SENOKOT) tablet 8.6 mg 8.6 mg (1 tablet), Oral, 2 times daily PRN, constipation, Starting on Tue03/10/22 at 1353 sodium chloride (PF) (NS) flush 5 mL(Linked Group 3) 5 mL, Intravenous, As needed, line care, Starting on Tue03/10/22 at 0852 sodium chloride (PF) (NS) flush 5 mL(Linked Group 1) 5 mL, Intravenous, As needed, line care, Starting on Tue03/10/22 at 1353 sodium chloride 0.9% (NS)(Linked Group 3) 0-150 mL/hr, Intravenous, As needed, To flush line after IV infusions when no maintenance IV ordered or a compatibility issue. Infuse 20ml at the same rate as the secondary infusion, Starting on Tue03/10/22 at 0852, Run as Primary IV. NOT intended for KVO. sodium chloride 0.9% (NS)(Linked Group 1) 0-150 mL/hr, Intravenous, As needed, To flush line after IV infusions when no maintenance IV ordered or a compatibility issue. Infuse 20ml at the same rate as the secondary infusion, Starting on Tue03/10/22 at 1353, Run as Primary IV. NOT intended for KVO. traMADoL (ULTRAM) tablet 50 mg 50 mg, Oral, Every 8 hours PRN, moderate to severe pain, Starting on Rebeca 03/18/22 at 0918 1123 (Given - Provider: Lyla Caraballo RN)2110 (Given - Provider: Florencia Douglas, MARISELA) 0542 (Given - Provider: Freya Ruby RN)165 (Given - Provider: Emmy Lester RN) traZODone (DESYREL) tablet 50 mg 50 mg, Oral, Nightly PRN, sleep, Starting on Tue03/10/22 at 1353, May repeat times 1 in 30 minutes if still awake. 2108 (Given - Provider: Florencia Douglas RN) Linked Groups Order Group 1: Saline lock IV (CANCELED) Routine, Continuous, Starting on Tue03/10/22 at 1354, Until Specified And sodium chloride (PF) (NS) flush 5 mLJump to med 5 mL, Intravenous, As needed, line care, Starting on Tue03/10/22 at 1353 And sodium chloride (PF) (NS) flush 5 mLJump to med 5 mL, Intravenous, Every 8 hours scheduled, First dose on Tue03/10/22 at 1400
Saline lock
And sodium chloride 0.9% (NS)Jump to med 0-150 mL/hr, Intravenous, As needed, To flush line after IV infusions when no maintenance IV ordered or a compatibility issue. Infuse 20ml at the same rate as the secondary infusion, Starting on Tue03/10/22 at 1353
Run as Primary IV. NOT intended for KVO.
Group 2: naloxone (NARCAN) injection 0.1 mgJump to med 0.1 mg, Intravenous, As needed, opioid reversal, For respiratory rate less than or equal to 8 per minute., Starting on Tue03/17/22 at 1029
Mix nalOXone (NARCAN) 0.4 mg (1mL) with 9 mL of Normal Saline to total 10 mL. Administer 0.1 mg (2.5mL) IV Push every 2 minutes until respiratory rate is 10 or greater.
And Notify physician (CANCELED) STAT, Until discontinued, Starting on Tue03/17/22 at 1030, Until Specified
Respiratory rate less than: 8
For respiratory rate less than or equal to 8, notify physician and/or appropriate staff for additional orders. And naloxone (NARCAN) injection 0.4 mgJump to med 0.4 mg, Intravenous, As needed, opioid reversal, patient is pulseless, breathless, and unresponsive, Starting on Tue03/17/22 at 1029
Call a code first, then administer naloxone dose undiluted IV Push over 30 seconds.
Group 3: Insert peripheral IV (COMPLETED) CHEMO, Once, On Tue03/10/22 at 0853, For 1 occurrence And Saline lock IV (CANCELED) CHEMO, Once, On Tue03/10/22 at 0853, For 1 occurrence And sodium chloride (PF) (NS) flush 5 mLJump to med 5 mL, Intravenous, As needed, line care, Starting on Tue03/10/22 at 0852 And sodium chloride 0.9% (NS)Jump to med 0-150 mL/hr, Intravenous, As needed, To flush line after IV infusions when no maintenance IV ordered or a compatibility issue. Infuse 20ml at the same rate as the secondary infusion, Starting on Tue03/10/22 at 0852
Run as Primary IV. NOT intended for KVO.
FOR RECORDS PERTAINING TO PATIENTS WHO ARE OR HAVE BEEN ENROLLED IN A CHEMICAL DEPENDENCY/SUBSTANCEABUSE PROGRAM, SOME INFORMATION MAY BE OMITTED. This clinical summary was aggregated from multiple sources. Caution should be exercised in using it in the provision of clinical care. This summary normalizes information from multiple sources, and as a consequence, information in this document may materially change the coding, format and clinical context of patient data. In addition, data may be omitted in some cases. CLINICAL DECISIONS SHOULD BE BASED ON THE PRIMARY CLINICAL RECORDS. [employer] provides no warranty or guarantee of the accuracy or completeness of information in this document.
[2023-07-27] MEDS: Lactated Ringers 1,000 ML 15 ML IV (06:24)
[2023-07-27] MEDS: Gabapentin 600 MG Tablet PO (06:24)
[2023-07-27] MEDS: Acetaminophen 500 MG Tablet 1000 MG PO (06:24)
[2023-07-27] MEDS: Magnesium 1 GM over 15 mins IV (06:24)
[2023-07-27] MEDS: Scopolamine 1mg/72hr Patch 1 PATCH TD (06:24)
[2023-07-27 06:25] LABS: Bedside Glucose 108 mg/dL (74-106)
--- NOTE | 2023-07-27 07:08 | HP.PCM_ITS ---
HPI - General HPI Narrative COLTON RONQUILLO, is a 58 M who presents for left total shoulder arthroplasty. no changes to h and p. plan for block. rab and post op protocol, narcotic counselling.left shoulder marked. MR#: [id number] Acct: [id number] Name: COLTON RONQUILLO Rep #: [id number] : 1965 Provider: Dr. Shukri Arana MD Age/Sex: 58/M Location: [facility] [place] Status: Signed Intake Vital Signs 04/05/2308:25 Height 5 ft 11 in Weight: 157 lb 8 oz BMI 21.9 Intake Visit Reasons: LEFT SHOULDER Chief Complaint: CT review Is patient in pain?: Yes (Left shoulder) Pain scale (1-10): 6 Allergies No Known Allergies Allergy (Unverified 06/24/23 10:11) Medications bupropion HCl 300 mg 24 hr tablet, extended release (Wellbutrin XL) 300 mg PO QAM 04/05/23 [History Confirmed 06/24/23] lisinopril 40 mg tablet 40 mg PO DAILY 04/05/23 [History Confirmed 06/24/23] meloxicam 15 mg tablet 15 mg PO DAILY 04/05/23 [History Confirmed 06/24/23] pantoprazole 40 mg tablet,delayed release 40 mg PO DAILY 04/05/23 [History Confirmed 06/24/23] PFSH Medical History Hypertension Left shoulder pain Primary osteoarthritis, left shoulder Stomach ulcer Surgical History History of bilateral carpal tunnel release History of repair of left rotator cuff S/P alcohol detoxification Family History Other Hypertension Social History Smoking Status: Never smoker alcohol intake: former what type of physical activity do you participate in: walking HPI LEFT SHOULDER Details: This documentation accurately reflects the service provided and the decisions made by me, Dr. Shurki Arana MD 06/24/23 [id number]. Part of today?s visit was documented by [ ], acting as scribe. COLTON RONQUILLO is a 58 year old M here today for FU CT L shoulder for surgical planning TSA. no changes to health. no blood thinner. vaping but trying to quit. Ortho Exam General General: Yes no acute distress Neurologic: Yes alert and Yes oriented x3 Psychologic: Yes reasonable and appropriate Left Shoulder Skin/Wound: Yes CDI, No ecchymosis, No erythema and No swelling Testing: Yes Hawkin's, Yes Neer's, No Speed's, No TTP Biceps, No TTP AC Joint, Yes empty can, No Durham and No scapular winging SHOULDER: normal motor and sens to axillary N, MRU and AIN/PIN. Hand warm well perfused normal radial pulse active FE 90, then very difficult to get to 150, ER 40, vs 70 other side, anterior incision well healed, delto pec straight at the subscap area, pain at end ranges, weak FE 4/5, ER 4+ Supplemental Info [facility] Imaging Services [address] [place] [place] [address] Extremity Upper without Contra MR#: [id number] Acct: [id number] Name: COLTON RONQUILLO Rep #: [id number] : 1965 M 57 From: Gagandeep Manley MD PCP: Care Physician,No Primary Status: REG CLI Study: Extremity Upper without Contra Date of Exam: 06/02/23 Exam# [id number] Ordering Dr: Shukri Arana MD EXAM: CT LEFT UPPER EXTREMITY WITHOUT INTRAVENOUS CONTRAST CLINICAL INDICATION: surgery planning for total shoulder replacement -- for [facility] planning TECHNIQUE: Helically acquired images were obtained of the left upper extremity without intravenous contrast. 2-D reformats were performed by the technologist. CTDIvol = ( 23.03 ) mGy, DLP = ( 618.59 ) mGycm This CT exam was performed using one or more of the following dose reduction techniques: automated exposure control, adjustment of the mA and/or kV according to patient size, and/or use of iterative reconstruction technique. COMPARISON: April 29, 2023 FINDINGS: BONES/JOINTS: Severe osteoarthritic changes involving the glenohumeral joint with prominent osteophytes projecting inferiorly. Dlve-xu-umspqjcy acromioclavicular joint osteoarthrosis. No acute or healing fracture or malalignment. No unusual lytic or sclerotic lesions of bone. SOFT TISSUES: Unremarkable. No soft tissue swelling or gas. No radiopaque foreign body. No soft tissue masses or fluid collections. LUNGS AND PLEURAL SPACES: The visualized left lung is clear. CT/Extremity Upper without Contra IMPRESSION: Severe left glenohumeral joint osteoarthrosis. Electronically Signed: Gagandeep Manley MD at 23:58 EST Reading Location ID and State: [facility] / [place] Tel , Service support , Coding Level of Care Code Off vis,est,level 4 Diagnoses Primary osteoarthritis, left shoulder M19.012 Assessment and Plan Assessment and Plan (1) Primary osteoarthritis, left shoulder: Status: Acute Plan: 58 yr M with L shoulder OA, preserved cuff. We have discussed options in the past including rest ice anti-inflammatories activity modifications physical therapy injections or surgery. This would be in the form of a total shoulder arthroplasty on the left side. Slightly increased risks due to the patient u sing a vape pen but trying to quit or cut back on that. Patient understands wishes to go ahead with left total shoulder arthroplasty. Recovery 3 weeks in sling 3-6 months for PT. Plan for Tornier Simplici stemless total shoulder arthroplasty Pros and cons risks and benefits were discussed with the patient including but not limited to infection, pain, stiffness, bleeding, damage to surrounding structures, neurovascular injury, recurrence or retear, failure or wear of hardware or fixation, instability, fracture, deep vein thrombosis and pulmonary embolism, anesthetic risks, , patient dissatisfaction, need for further surgery and other risks. Patient understood and wished to proceed with surgery, and signed the informed consent documentation. FORMERLY [facility], [facility] Medical History Anxiety Arthritis Cellulitis Hypertension Left shoulder pain Low iron Non-smoker Primary osteoarthritis, left shoulder Stomach ulcer Home Medications bupropion HCl 300 mg 24 hr tablet, extended release (Wellbutrin XL) 300 mg PO QAM 04/05/23 [History Last Taken 07/27/23] lisinopril 40 mg tablet 40 mg PO DAILY 04/05/23 [History Last Taken 07/27/23] meloxicam 15 mg tablet 15 mg PO DAILY 04/05/23 [History Last Taken 07/26/23] pantoprazole 40 mg tablet,delayed release 40 mg PO DAILY 04/05/23 [History Last Taken 07/27/23] cyanocobalamin-liver extract tablet 1 tab PO DAILY 07/20/23 [History Last Taken 07/26/23] ferrous sulfate 325 mg (65 mg iron) tablet (iron) 325 mg PO DAILY 07/20/23 [History Last Taken 07/26/23] Allergy/AdvReac Type Severity Reaction Status Date / Time No Known Allergies Allergy Verified 07/27/23 06:32 Family History Other Hypertension Surgical History History of bilateral carpal tunnel release History of hand surgery History of repair of left rotator cuff Hx of colonoscopy Hx of esophagogastroduodenoscopy Hx of left inguinal hernia repair S/P alcohol detoxification Social History Smoking Status: Never smoker alcohol intake: former what type of physical activity do you participate in: walking Vital Signs Vital Signs Vital Signs: 07/27/23 06:27 07/27/23 06:27 Temperature 98.2 F Temperature Source Temporal Pulse Rate 63 Respiratory Rate 17 Respiratory Pattern Normal Blood Pressure 144/94 H Blood Pressure Mean 110 Blood Pressure Source Monitor Blood Pressure Position Semi-Fowlers Blood Pressure Location Right Arm Pulse Ox 99 Oxygen Delivery Method Room Air Weight Weight: 165 lb 5.547 oz Body Mass Index (BMI) 23.1 Results Lab / Micro Data 07/21/23 11:03 07/21/23 11:03 Labs: Laboratory Results - last 24 hr 07/27/23 06:07: POC Glucose 108 H
[2023-07-27] MEDS: Cefazolin 2 GM in 0.9% Normal Saline (100mL Bag) 100 ML IV (07:30)
--- NOTE | 2023-07-27 07:30 | BON_PTH ---
PATHOLOGY RESULTS PATIENT: COLTON RONQUILLO LOC: [facility] [place] U#:[id number] AGE/SX: 58/M ROOM: RE07/27/[address]: Dr. Shukri Arana MD : 1965 BED: DIS: 07/27/2023 SPEC #: [id number] RECD: 07/27/23 12:34 STATUS: JAYSHREE HENNA #: [id number] DONI: 07/27/23 07:[address]: Shukri Arana DEPT: SURGICAL PATHOLOGY RECD BY: Nava Chan ENTERED: 07/27/23 12:34 SP TYPE: Bone OTHR DR: No Primary Care Phys Tissues: Humerus, NOS Procedures: Decalcification bone/plaque Surgery Specimen Level IV HEADER OPERATION: ERAS, left total shoulder replacement PRE-OP DIAGNOSIS: Osteoarthritis left shoulder TISSUE SUBMITTED: Left humerus head bone and tissue MICROSCOPIC DIAGNOSIS Bone and tissue of left shoulder, total shoulder resection: Degenerative joint disease. Synovium with mild chronic inflammation and polarizable crystals consistent with pseudogout. AM:cammy 08/01/2023 MICROSCOPIC DESCRIPTION Slides are reviewed. GROSS DESCRIPTION Received is one container labeled with the patient's name and designated left humerus bone and tissue. The specimen consists of a humeral head measuring 4.5 x 5.5 x 2.5 cm. The articular surface shows areas of erosion and osteophyte formation. Also received are multiple pieces of bone measuring in aggregate 2.0 x 2.5 x 1.0 cm. The soft tissue measures in aggregate 3.5 x 3.0 x 1.0 cm. Paper Machine Backtender sections are submitted in two cassettes as follows: 1 - soft tissue, 2 - humeral head after decalcification. / SJ:cammy 07/27/2023 TC:5 [facility]: [id number], [id number]
[2023-07-27] MEDS: dexAMETHasone 10 MG/ML Vial IV (07:45)
[2023-07-27] MEDS: TXA 1000mg in NS100 100ml (IVPB at Incision) 660 MG IV (07:50)
--- NOTE | 2023-07-27 09:10 | RAD_ITS ---
STUDY: X-RAY - LEFT SHOULDER REASON FOR EXAM: Male, 58 years old. LEFT SHOULDER REPLACEMENT TECHNIQUE: 1 view(s) of the shoulder. COMPARISON: None. FINDINGS: Intraoperative imaging provided for left shoulder replacement. RAD/Shoulder min 2 Views IMPRESSION: Intraoperative imaging provided for left shoulder replacement. Electronically Signed: Dmitriy Velazquez MD at 15:07 EST ,
[2023-07-27] MEDS: TXA 1000mg in NS100 100ml (IVPB at Closure) 660 MG IV (09:35)
--- NOTE | 2023-07-27 09:55 | PCM.OPRPT ---
Problems Associated Problem List Diagnoses (1) Primary osteoarthritis, left shoulder: Report of Operation Date of Procedure: 07/27/23 Pre-Operative Diagnosis: L shoulder osteoarthritis Post-Operative Diagnosis: same Surgery/Procedure Performed:: Left total shoulder arthroplasty Surgeon: Shukri Arana Type of Anesthesia: Block,Regional and General Anesthesiologist: Zack Bauer Estimated Blood Loss (mL): 100 Description of Procedure: Patient brought to the operating room theater. Placed supine on the table. General anesthesia induced. Patient set up with beachchair positioner. trimano arm jordan. All bony prominences padded. SCDs on the legs. 2 g IV Ancef administered prior to start of procedure as well as 1 g IV tranexamic acid. Patient received block preoperatively. Upper extremity prepped and draped in the usual sterile fashion with chlorhexidine-based prep solution allowing over 3 minutes drying time prior to draping. Preoperative timeout performed to confirm the site patient and the surgery. Began by making a deltopectoral incision just lateral to the coracoid process. Carried the dissection down through skin and subcutaneous tissue achieved meticulous hemostasis. Incised the interval between the deltoid and pectoralis retracted pectoralis along with the vein laterally. Identified the lateral border of the conjoined tendon and incised on this and I retracted this medially with a Hewitt shoulder retractor identified the long head of the biceps tenodesis to the upper border of the pectoralis major. Followed this through the groove identified the rotator interval. Excised the stump of the biceps. Identified the circumflex humeral vessels ligated these to control them. Did a subscapularis peel with tagging sutures there. Developed the plane between the subscapularis and the capsule excised this ensuring to protect the axillary nerve palpated this throughout the case. Externally rotated the humerus to visualize the humeral head and protected the superior rotator cuff attachment. I then marked my cut 135 degrees. Made the humeral head cut. Protected the rotator cuff again. Place the pin through the lateral cortex with the size 3 guide. Used the central drill as well as the punch for the size 3 nucleus with the humeral head protector in place. I removed any osteophytes and did a circumferential release around the humeral metaphysis to gain external rotation and full range of motion of the shoulder. Next I turned my attention to the glenoid side. I sized this to be on the borderline between medium and large I selected a medium. Backside 40. I used the reamer for about 2.5 mm of depth. I released some of the inferior aspect of the triceps as well as circumferentially the labrum around the glenoid. I placed the guide and drilled the 3 peripheral holes, with 2 inferior and 1 superior. Next I thoroughly irrigated using pulse lavage. I mixed cement. I cemented only the outer 3 holes and then selected the Tornier perform anatomic glenoid peg glenoid impacted this in place. I then turned my attention back to the humeral side. I trialed using a size 3 nucleus and 50 mm head thickness 19 mm. This appeared appropriate full range of motion no impingement as well as 50% anterior to posterior translation. I selected these as the final components. I removed the trials and impacted the components using the Mortensen taper to the nucleus. I took an intraoperative radiograph this appear appropriately placed. I thoroughly irrigated using pulse lavage as well as Irrisept solution. Next I repaired the subscapularis using a double row with medial shmuel technique. I placed 2 Arthrex self punching 2.6 mm fiber tack anchors passed the sutures through the medial aspect of the subscapularis and performed the medial shmuel technique and then I used those repair stitches as well as previously placed #2 FiberWire sutures to create a X configuration with 3 limbs going to each of 2 Arthrex 4.75 mm swivel lock anchors. This created a stable solid repair which I tested no gapping. Sutures were cut short Thoroughly irrigated the wound. All retractors removed. Subtenons tissue closed with 2-0 Vicryl suture and skin with 3-0 Monocryl. Skin cleaned with wet dry dressing followed application of Steri-Strips and silver Mepilex border dressing. Patient woken up from the general anesthetic transferred off the operating table taken postanesthetic care unit in stable addition. All sponge needle instrument counts were correct no complications. Plan to the patient if they are comfortable they may be discharged home today according to day surgery criteria follow-up in the office in 2 weeks time pendulums only no lifting of the shoulder. cpt 87013? Complications none Admit VTE Documentation VTE Present on Admission: No VTE Mechan Device Prophylaxis: SCD's VTE Pharm Prophylaxis ordered?: No Reason prophylaxis not ordered:: Treatment Not Indicated Procedures Musculoskeletal 20xxx-29xxx: Other Procedure See Report
--- NOTE | 2023-07-27 10:09 | DCINST_ITS ---
Discharge Instructions Diet Discharge Diet: No restrictions Activity Ice area for (Minutes): 10 Lifting Restrictions: pendulums only, otherwise in sling. Dressing / Incision Call your doctor if your incision/area has: Continuous Slow Oozing, Sudden Increased Bleeding, Increased Pain/ Swelling, Increased Redness, Foul Smelling Discharge and Swelling at the incision site Remove Dressing in: leave in place till F/U Follow Up Care Please Follow Up With: Shukri Arana MD When: 2 days Test Results: Test results from this visit will be discussed in further detail at your follow- up appointment, if applicable. Discharge Plan Admission Attending Provider: Shukri Arana Primary Care Provider: Care Physician,No Primary Discharge Orders/Prescriptions Prescriptions: New oxycodone-acetaminophen [Percocet] 5-325 mg tablet 1 tab PO Q4H MDD 6 PRN (Reason: pain) 5 Days Qty: 30 0RF No Action lisinopril 40 mg tablet 40 mg PO DAILY meloxicam 15 mg tablet 15 mg PO DAILY bupropion HCl [Wellbutrin XL] 300 mg tablet extended release 24 hr 300 mg PO QAM pantoprazole 40 mg tablet,delayed release (DR/EC) 40 mg PO DAILY ferrous sulfate [iron] 325 mg (65 mg iron) tablet 325 mg PO DAILY cyanocobalamin-liver extract Tablet 1 tab PO DAILY Referrals / Follow Up: Shukri Arana MD [Med Staff - Active Staff] - Care Physician,No Primary [Primary Care Provider] - Disposition Disposition (needs filled in before D/C Order can be placed): Home, Self Care
[2023-07-27] MEDS: Oxycodone/Apap 5/325 Tablet PO (11:12)
== END 2023-07-27 12:12 | disposition home or self-care (01) ==
LOC: SDC 05:16 → AC 05:17
PROVIDERS: Anesthesiology; Referring Provider Orthopaedic Surgery Sports Medicine; Visit Provider Orthopaedic Surgery Sports Medicine
PROC: (CPT 23472; principal; 2023-07-27 07:00)
DX: M19.012 Primary osteoarthritis, left shoulder (principal); I10 Essential (primary) hypertension; Z79.899 Other long term (current) drug therapy
CPT/HCPCS: 23472; 36415; 73030; 76000; 80048; 82962; 82985; 83036; 83735; 85025; 85610; 85730; 86850; 86900; 86901; 87077; 87081; 88305; 88311; 93005; C1776; J7120; J2405; J3475

== ENCOUNTER 2023-09-01 16:30 | Outpatient (RCR) | payer MEDICAID, SELFPAY ==
--- NOTE | 2023-08-04 16:09 | HP.PTEVAL_ITS ---
Patient's Visit Information Visit Information Visit Information: COLTON RONQUILLO is a 58 year old M referred to Physical Therapy by Dr. Shukri Arana MD with a diagnosis of s/p L TSA 07/28/23 stemless. Date of Evaluation: 08/04/23 Physical Therapist: Zack Roberts, DPT, OCS, CSCS Visit Plan Frequency: 2-3x /Week Duration: 2 Months Plan: 2x/week for 6-8 weeks as needed for pendulm and PROM until 08/24 then AROM and AROM until 09/07 then strength. In sling until 08/10 then wean out. Ice, manual therapy and ex progression per sdcript. Monitor need for scar massage. Subjective Subjective: L TSA 07/28/23. Had OA and bothersome for a while. RC surgery at 17yo. Awesome for the last week. Minimal pain. Sleeping well. In sling all the time including sleeping. Given pendulum but not doing it. On disability.Cpuld not er L shoulder and maybe 60 degrees elevation Basic ADLs dressing self, shower I. Sling on and off I. Hobbies: nothing right now. [place] boat in summer. Messes in building. No regualr exercises. Walks alot. Pain L shoulder: Pain Intensity (Out of 10): 0 Pain Intensity Range: 0 and 3 Objective Objective: Ambulates in I with sling on L arm donned and doffed I. Wound is dressed and appears dry and free from excessive redness, heat or swelling. cervical AROM is WFL. Scapular ROM is cautious L but symmetrical. Elbow L aROM is limited to -8 extension with some anterior shoulder pain. full felxion with pain at end range L . wrist aROM L limitied due to arthritis, full hand ROM and good pronation adn supination. Very cautious with L shoulder and UE moement. pendulum taught and checked and gets to about 45 degrees today. PROM L shoulder : flexion 80 abduction 60 er: 30 IR 30 at 45 abd. all limited by some pain and stiff end feel. R shoulder AROM WFL. Balance/Special Test Scores Quick DASH Score: 59.0900 Goals Goal 1:: ST: PROM to 130 flexion, 60 er without excessive pain Goal Time Frame: 2-4 Weeks Goal 2:: Funcitonal AROM 140 flexion and 60 er and 130 abduction without pain Goal Time Frame: 6-8 Weeks Goal 3:: patient feel 100% back to normal activities with shoulder Goal Time Frame: 6-8 Weeks Goal 4:: quickdash score 15 or less Goal Time Frame: 6-8 Weeks Goal 5:: I management of HEP for shoulder Goal Time Frame: 6-8 Weeks Rehabilitation Potential Physical Therapy Diagnosis: stiffness and weakness s/p TSA Rehabilitation Potential: Good Anticipated Interventions Patient/Client Instruction: Educate patient on: Condition and Risk Factors For the Purpose of:: To decrease pain, To decrease swelling/inflammation, To increase ROM, To improve nutrient delivery to tissue and To improve muscle performance and motor function Therapeutic Exercise to Include: Strength training, Flexibilty training, Passive ROM and Active ROM For the Purpose of:: To decrease pain, To increase ROM, To improve nutrient delivery to tissue, To increase tolerance to activity/condition/position and To improve ability of physical actions for home/community/work/leisure Manual Therapy Techniques to Include: Scar massage and Passive ROM For the Purpose of:: To decrease pain, To increase ROM and To improve nutrient delivery to tissue Other electric stimulation: Yes For the Purpose of:: To decrease pain and To decrease swelling/inflammation Text: Thank you for the opportunity to evaluate your patient. For Medicare and Medicare HMO plans, please review the plan of care and approve it. It will need to be FAXED BACK to us at [phone] for Medicare purposes. For Medicare only, by signing this I certify the plan of care. Please let me know if there are questions or concerns regarding this plan of care. Physician Signature: Date:
--- NOTE | 2023-09-01 16:53 | HP.PTREVAL ---
Re-Evaluation Intro: Dr. Shukri Arana MD, It has been my pleasure to treat COLTON RONQUILLO over the last 8 visits for s/p L TSA 07/28/23 stemless. Please see the progress note below for an update on the physical therapy plan of care! Subjective Subjective: No pain, it is not an issue. Hot spot for a few days now and then. maybe caused by reaching back 1x and dumping dog food another time. To doctor next week. Doing far beyond what he expected. Objective Objective/Function: 138 stick flexion er stick supine to 70 130 active flexion 50 external rot AROM L5 IR AROM abd to 100 degrees. Pt doing very well with ROM and pain levels, still weak expectedly. Appropriate to start strength after doc visit next week. Plan Plan Plan: weekly x 4-6 to progress to aROM and strength, IR . Pt to doctor next week Balance/Gait/Functional tests Balance/Special Test Scores Quick DASH Score: 59.0900 Goals Goals Goal 1:: ST: PROM to 130 flexion, 60 er without excessive pain Goal Time Frame: 2-4 Weeks Goal Progress: Goal Met Goal 2:: Funcitonal AROM 140 flexion and 60 er and 130 abduction without pain Goal Time Frame: 6-8 Weeks Goal Progress: Progressing Goal 3:: patient feel 100% back to normal activities with shoulder Goal Time Frame: 6-8 Weeks Goal 4:: quickdash score 15 or less Goal Time Frame: 6-8 Weeks Goal 5:: I management of HEP for shoulder Goal Time Frame: 6-8 Weeks Goal Progress: Progressing Anticipated Interventions Anticipated Interventions Patient/Client Instruction: Educate patient on: Condition and Risk Factors For the Purpose of:: To decrease pain, To decrease swelling/inflammation, To increase ROM, To improve nutrient delivery to tissue and To improve muscle performance and motor function Therapeutic Exercise to Include: Strength training, Flexibilty training, Passive ROM and Active ROM For the Purpose of:: To decrease pain, To increase ROM, To improve nutrient delivery to tissue, To increase tolerance to activity/condition/position and To improve ability of physical actions for home/community/work/leisure Manual Therapy Techniques to Include: Scar massage and Passive ROM For the Purpose of:: To decrease pain, To increase ROM and To improve nutrient delivery to tissue Other electric stimulation: Yes For the Purpose of:: To decrease pain and To decrease swelling/inflammation Re-Evaluation Ending Re-evaluation ending: Please do not hesitate to contact me at [phone] by phone or if you have questions or concerns regarding this new plan of care! Sincerely, Zack Roberts, DPT, OCS, CSCS
--- NOTE | 2023-10-10 11:05 | HP.PTDCNRP_ITS ---
Patient Information Patient Information: COLTON RONQUILLO was seen in my office for initial evaluation on 08/04/23. The following Plan of Care was established for this patient: POC Established Initial Frequency: 2-3x /Week Initial Duration: 2 Months Anticipated Interventions Patient/Client Instruction: Educate patient on: Condition and Risk Factors For the Purpose of:: To decrease pain, To decrease swelling/inflammation, To increase ROM, To improve nutrient delivery to tissue and To improve muscle performance and motor function Therapeutic Exercise to Include: Strength training, Flexibilty training, Passive ROM and Active ROM For the Purpose of:: To decrease pain, To increase ROM, To improve nutrient delivery to tissue, To increase tolerance to activity/condition/position and To improve ability of physical actions for home/community/work/leisure Manual Therapy Techniques to Include: Scar massage and Passive ROM For the Purpose of:: To decrease pain, To increase ROM and To improve nutrient delivery to tissue Other electric stimulation: Yes For the Purpose of:: To decrease pain and To decrease swelling/inflammation Last Seen Last Seen: This patient was last seen in our office 09/01/23. Pertinent comments regarding their Physical therapy will appear below: Pt seen 8 visits of POC and was doing very well. He no showed for his next v isit without rescheduling. At this time, it has been over 5 weeks and i will discontinue due to nonattendance. At this point I will be discontinuing this patient from physical therapy. I would be happy to see this patient again in the future if found appropriate by the physician. Thank you! Zack Roberts, DPT, OCS, CSCS Balance/Gait/Functional tests Balance/Special Test Scores Quick DASH Score: [phone]
== END 2023-09-01 19:00 | disposition home or self-care (01) ==
LOC: PT 16:30
PROVIDERS: Referring Provider Orthopaedic Surgery Sports Medicine; Visit Provider Orthopaedic Surgery Sports Medicine
DX: M19.012 Primary osteoarthritis, left shoulder (principal)
CPT/HCPCS: 97110; 97140; 97161; 97530